=== PATIENT | female | born 1945 | race Caucasian/White ===

== ENCOUNTER 2021-02-27 07:30 | Emergency (ER) | payer OTHER ==
--- OUTSIDE RECORDS SUMMARY | 2021-02-27 07:33 | XMS REPORT | Continuity of Care Document ---
:1945 Author Organization [facility] t Address [address] [place] [address] Care Team Providers Name Role Phone Unavailable Unavailable Unavailable Problems This patient has no known problems. Allergies, Adverse Reactions, Alerts Allergy Allergy Status Severity Reaction(s) Onset Inactive Treating Comm ents Source Name Type Date Date Clinician Loratadi Adverse Active Info Not [facility] Medications Ordered Filled Start Stop Current Ordering Indication Dosage Frequency Signature Comments Components Source Medication Medication Date Date Medication? Clinician (SIG) Name Name Carvedilol Carvedilol Yes Na Anguiano [address] [facility] Aspirin 81 Aspirin 81 Yes Na Anguiano [address] [facility] Synthroid Synthroid Yes Na Anguiano [address] [facility] Probiotic-P Probiotic-P Yes Na Anguiano not [facility] rebiotic rebiotic defined [facility] Fish Oil Fish Oil Yes Na Anguiano [address] [facility] Triple Triple [facility] Strength Strength [facility] PreserVisio PreserVisio Yes Na Anguiano as [facility] n AREDS 2 n AREDS 2 directed [facility] CoQ10 CoQ10 Yes Na Anguiano 1 capsule [facility] a [facility] Fish Oil Fish Oil Yes Na Anguiano [address] [facility] Turmeric Turmeric Yes Na Anguiano as [facility] Curcumin Curcumin directed [facility] Synthroid Synthroid Yes Na Anguiano [address] [facility] Levothyroxi Levothyroxi Yes Na Anguiano TAKE [address] [facility] ne Sodium ne Sodium TABLET BY [facility] MOUTH ONCE [facility] DAILY IN l THE Outpati MORNING ON ent AN EMPTY Clinics STOMACH Immunizations Ordered Filled Immunization Date Status Comments Sour e Immunization Name Name Hanny Gamino 2019-03-[address] [facility] Procedures This patient has no known procedures. Encounters Start End Encounter Admission Attending Care Care Encounter Source Date/Time Date/Time Type Type Clinicians Facility Department ID 2020-09-06 2020-09-06 [facility] [id number] [facility] 2020-06-28 2020-06-28 [facility] [id number] [facility] 2020-05-01 2020-05-01 [facility] [id number] [facility] 2019-12-26 2019-12-26 [facility] [id number] [facility] 13[facility]00 [facility] 2019-06-27 2019-06-27 [facility] [id number] [facility] 13[facility] 13[facility]00[facility]00 [facility] Out[facility] 2019-03-31 2019-03-31 [facility] [id number] [facility] 05[facility]20[facility]00 05:20[facility]00 [facility] Medicine Outpat[facility] ent Clinics 2019-03-29 2019-03-29 [facility] [id number] [facility] 11[facility]00[facility]00 11[facility]00[facility]00 [facility] Medicine Outpat[facility] ent Clinics 2019-03-28 2019-03-28 [facility] [id number] 13[facility]00:00 13:00:00 t [employer] [employer] [facility] [employer] [facility] Medicine Outpati ent Clinics 2018-12-20 2018-12-20 [facility] [id number] [facility] 13:00:00 13:00:00 t [employer] [facility] Medicine Outpati ent Clinics 2018-09-20 2018-09-20 [facility] [id number] [facility] 09:30:00 09:30:00 t [employer] [facility] Medicine Outpati ent Clinics 2018-06-20 2018-06-20 [facility] [id number] [facility] 14[facility]30:00 14:30:00 t [employer] [facility] Medicine Outpati ent Clinics 2018-03-17 2018-03-17 [facility] [id number] [facility] 14:00:00 14:00:00 t [employer] [facility] Medicine Outpati ent Clinics 2017-12-14 2017-12-14 [facility] [id number] 14:15:00 14:15:00 t [employer] [facility] Medicine Outpati ent Clinics Results This patient has no known results.
--- NOTE | 2021-02-27 07:53 | EDPHYS ---
Physician Documentation [facility] Name: Daphne Samuels Age: 76 yrs Sex: Female : 1945 Arrival Date: 02/27/2021 Time: 07:32 Bed Waiting Private MD: Kary Anguiano ED Physician Jeremy Perry HPI: 02/27 09:03 This 76 yrs old Female presents to ER via Ambulatory with complaints of Rash. kb 09:03 The patient's rash thought to be caused by an unknown cause. The rash is located on the kb body diffusely. The rash can be described as urticarial. Onset: The symptoms/episode began/occurred yesterday. Associated signs and symptoms: Pertinent positives: itching. Severity of symptoms: At their worst the symptoms were moderate in the emergency department the symptoms are unchanged. Treatment given at home: Benadryl. The patient has not experienced similar symptoms in the past. The patient has not recently seen a physician. Historical: - Allergies: 07:43 No Known Allergies; jl7 - Home Meds: 07:43 carvedilol 3.125 mg Oral tab 1 tab [Active]; levothyroxine 25 mcg cap 1 cap once daily jl7 [Active]; - PMHx: 07:43 Hypertensive disorder; Hypothyroidism; Osteoporosis; jl7 - PSHx: 07:43 section; jl7 - Immunization history:: Client reports receiving the 2nd dose of the Covid vaccine, Date received: August 2020 [facility]. - Social history:: Smoking status: Patient denies any tobacco usage or history of. ROS: 09:03 Constitutional: Negative for fever, chills, and weight loss. kb 09:03 Skin: Positive for rash, diffusely. 09:03 All other systems are negative. Exam: 09:03 Constitutional: This is a well developed, well nourished patient who is awake, alert, kb and in no acute distress. Head/Face: Normocephalic, atraumatic. ENT: Moist Mucous membranes Respiratory: Respirations even and unlabored. No increased work of breathing, no retractions or nasal flaring. MS/ Extremity: Pulses equal, no cyanosis. Neurovascular intact. Full, normal range of motion. Neuro: Awake and alert, GCS 15, oriented to person, place, time, and situation. Moves all extremities. Normal gait. Psych: Awake, alert, with orientation to person, place and time. Behavior, mood, and affect are within normal limits. 09:03 Skin: consistent with urticaria, and is diffusely located. Vital Signs: 07:37 BP 174 / 101; Pulse 84; Resp 17; Temp 97.3; Pulse Ox 100% ; Weight 45.36 kg; Height 4 7 ft. 10 in. (147.32 cm); Pain 0/10; 07:58 BP 150 / 79; Pulse 80; Resp 15; Pulse Ox 100% ; jl7 07:37 Body Mass Index 20.90 (45.36 kg, 147.32 cm) [facility] MDM: 07:45 Patient medically screened. 09:01 Data reviewed: vital signs, nurses notes. Data interpreted: Pulse oximetry: on room air kb is 100 %. Interpretation: normal. Counseling: I had a detailed discussion with the patient and/or guardian regarding: the historical points, exam findings, and any diagnostic results supporting the discharge/admit diagnosis, the need for outpatient follow up, a family practitioner, to return to the emergency department if symptoms worsen or persist or if there are any questions or concerns that arise at home. Administered Medications: 07:57 Drug: Pepcid (famotidine) 20 mg Route: PO; [facility] 07:57 Follow up: Response: Medication administered at discharge. [facility] 07:57 Drug: predniSONE 40 mg Route: PO; 7 07:57 Follow up: Response: Medication administered at discharge. 7 Disposition Summary: 02/27/21 07:52 Discharge Ordered Location: Home kb Condition: Stable kb Diagnosis - Urticaria, unspecified kb Followup: kb - With: Emergency Department - When: As needed - Reason: Worsening of condition Followup: kb - With: Private Physician - When: 2 - 3 days - Reason: Recheck today's complaints, Continuance of care, Re-evaluation by your physician Discharge Instructions: - Discharge Summary Sheet kb - Hives, [id number] kb Forms: - Medication Reconciliation Form kb - Thank You Letter kb - Antibiotic Education kb - Prescription Opioid Use kb Prescriptions: - Pepcid 20 mg Oral Tablet - take 1 tablet by ORAL route every 12 hours for 5 days; 10 tablet; Refills: 0, kb Product Selection Permitted - Prednisone 20 mg Oral Tablet - take 2 tablets by ORAL route once daily for 5 days; 10 tablet; Refills: 0, kb Product Selection Permitted Signatures: Mary Ellen Colby, Arabella Salvador, RN RN jl7
--- NOTE | 2021-02-27 07:53 | ER ---
Nurse's Notes [facility] Name: Daphne Samuels Age: 76 yrs Sex: Female : 1945 Arrival Date: 02/27/2021 Time: 07:32 Bed Waiting Private MD: Kary Anguiano Diagnosis: Urticaria, unspecified Presentation: 02/27 07:37 Chief complaint: Patient states: Rash on right lateral abdomen started on Wednesday and jl7 was itchy, now not as itchy but woke this morning and it's all over my body. Reports taking hypertension medication 20 minutes prior to arrival. Coronavirus screen: Client denies travel out of the [place] in the last 14 days. At this time, the client does not indicate any symptoms associated with coronavirus-19. Ebola Screen: No symptoms or risks identified at this time. Initial Sepsis Screen: Does the patient meet any 2 criteria? No. Patient's initial sepsis screen is negative. Does the patient have a suspected source of infection? No. Patient's initial sepsis screen is negative. Risk Assessment: Do you want to hurt yourself or someone else? Patient reports no desire to harm self or others. Onset of symptoms was February 23, 2021. 07:37 Method Of Arrival: Ambulatory jl7 07:37 Acuity: AYSHA 4 jl7 Triage Assessment: 07:43 General: Appears in no apparent distress. uncomfortable, Behavior is calm, cooperative, jl7 appropriate for age. Pain: Denies pain. Derm: Rash noted that is red, raised, on bilaterla arms, bilateral legs, abdomen, face. Historical: - Allergies: 07:43 No Known Allergies; jl7 - Home Meds: 07:43 carvedilol 3.125 mg Oral tab 1 tab [Active]; levothyroxine 25 mcg cap 1 cap once daily jl7 [Active]; - PMHx: 07:43 Hypertensive disorder; Hypothyroidism; Osteoporosis; jl7 - PSHx: 07:43 section; jl7 - Immunization history:: Client reports receiving the 2nd dose of the Covid vaccine, Date received: August 2020 [facility]. - Social history:: Smoking status: Patient denies any tobacco usage or history of. Screenin:49 Abuse screen: Denies threats or abuse. Denies injuries from another. Nutritional jl7 screening: No deficits noted. Tuberculosis screening: No symptoms or risk factors identified. Fall Risk None identified. Assessment: 07:49 Reassessment: EDUARDA Hyde in triage assessing pt. jl7 Vital Signs: 07:37 BP 174 / 101; Pulse 84; Resp 17; Temp 97.3; Pulse Ox 100% ; Weight 45.36 kg; Height 4 jl7 ft. 10 in. (147.32 cm); Pain 0/10; 07:58 BP 150 / 79; Pulse 80; Resp 15; Pulse Ox 100% ; jl7 07:37 Body Mass Index 20.90 (45.36 kg, 147.32 cm) jl7 ED Course: 07:32 Patient arrived in ED. as 07:32 Kary Anguiano MD is Private Physician. as 07:40 Triage completed. jl7 07:43 Arm band placed on right wrist. jl7 07:45 Mary Ellen Colby [facility]C [facility] kb 07:45 Jeremy Perry MD is Attending Physician. kb 07:49 Patient has correct armband on for positive identification. jl7 07:49 No provider procedures requiring assistance completed. Patient did not have IV access jl7 during this emergency room visit. Administered Medications: 07:57 Drug: Pepcid (famotidine) 20 mg Route: PO; jl7 07:57 Follow up: Response: Medication administered at discharge. jl7 07:57 Drug: predniSONE 40 mg Route: PO; jl7 07:57 Follow up: Response: Medication administered at discharge. jl7 Outcome: 07:52 Discharge ordered by . kb 07:58 Discharged to home ambulatory. jl7 07:58 Condition: stable 07:58 Discharge instructions given to patient, family, Instructed on discharge instructions, follow up and referral plans. medication usage, Demonstrated understanding of instructions, follow-up care, medications, Prescriptions given X 2. 08:01 Patient left the ED. jl7 Signatures: Mary Ellen Colby FNP-C FNP-Leonor Billy Jahala, RN RN jl7
[2021-02-27] MEDS ORDERED: predniSONE 20 MG TAB ONE (08:17)
[2021-02-27] MEDS ORDERED: FAMOTIDINE 20 MG TAB ONE (08:17)
== END 2021-02-27 08:01 | disposition home or self-care (01) ==
LOC: ER 07:30
DX: L50.9 Urticaria, unspecified (principal); I10 Essential (primary) hypertension; E03.9 Hypothyroidism, unspecified
CPT/HCPCS: 99283; J7512

== ENCOUNTER 2021-03-01 08:08 | Emergency (ER) | payer OTHER ==
--- OUTSIDE RECORDS SUMMARY | 2021-03-01 08:11 | XMS REPORT | Continuity of Care Document ---
:1945 Author Organization [facility] t Address [address] [place] [address] Care Team Providers Name Role Phone Unavailable [...] 2019-03-[address] [facility] Outpatient Clin[facility] Procedures This patient has no known procedures. Encounters Start End Encounter Admission Attending Care Care Encounter Source Date/Time Date/Time Type Type Clinicians Facility Department ID 2020-09-06 2020-09-06 Out[facility] [id number] [facility] 2020-06-28 2020-06-28 [facility] [id number] [facility] 2020-05-01 2020-05-01 [facility] [id number] [facility] 2019-12-26 2019-12-26 [facility] [id number] [facility] 13[facility] 13:00:00 [facility] Medicine Medicine Outpati ent Clinics 2019-06-27 2019-06-27 [facility] [id number] [facility] 13:00:00 13:00:00 [facility] Medicine Medicine Outpati ent Clinics 2019-03-31 2019-03-31 [facility] [id number] [facility] 05:20:00 05:20:00 [facility] Medicine l Medicine Outpati ent Clinics 2019-03-29 2019-03-29 [facility] [id number] 11:00:00 11:00:00 [facility] Medicine Outpati ent Clinics 2019-03-28 2019-03-28 [facility] [id number] [facility] 13:00:00 13:00:00 t [employer] [facility] [employer] [facility] Medicine Outpati ent Clinics 2018-12-20 2018-12-20 [facility] [id number] [facility] 13:00:00 13:00:00 t [employer] [facility] [employer] [facility] Medicine Outpati ent Clinics 2018-09-20 2018-09-20 [facility] [id number] 09:30:00 09:30:00 t [employer] [facility] Medicine Outpati ent Clinics 2018-06-20 2018-06-20 [facility] [id number] [facility] 14:30:00 14:30:00 t [employer] [facility] Medicine Outpati ent Clinics 2018-03-17 2018-03-17 [facility] [id number] [facility] 14:00:00 14:00:00 t [employer] [facility] Medicine Outpati ent Clinics 2017-12-14 2017-12-14 [facility] [id number] [facility] 14:15:00 14:15:00 t [employer] [facility] Medicine Outpati ent Clinics Results This patient has no known results.
--- NOTE | 2021-03-01 08:51 | ER ---
Nurse's Notes [facility] Name: Daphne Samuels Age: 76 yrs Sex: Female : 1945 Arrival Date: 03/01/2021 Time: 08:12 Bed DIS8 Private MD: Kary Anguiano Diagnosis: Allergic urticaria Presentation: 03/01 08:21 Chief complaint: Patient states: Pt was seen in ER for Hives that began last ss Wednesday and was given pepcid and prednisone. Pt attempted to follow up with Dr. Anguiano, but was told she did not need to be seen. Pt reports that the hives are not improving at all. Coronavirus screen: Client denies travel out of the [place] in the last 14 days. Ebola Screen: Patient denies exposure to infectious person. Patient denies travel to an Ebola-affected area in the 21 days before illness onset. Onset: The symptoms/episode began/occurred 6 day(s) ago. Anaphylaxis evaluation, no signs or symptoms of anaphylaxis were noted. Initial Sepsis Screen: Does the patient meet any 2 criteria? No. Patient's initial sepsis screen is negative. Does the patient have a suspected source of infection? No. Patient's initial sepsis screen is negative. Risk Assessment: Do you want to hurt yourself or someone else? Patient reports no desire to harm self or others. Onset of symptoms was February 23, 2021. 08:21 Method Of Arrival: Ambulatory ss 08:21 Acuity: AYSHA 4 ss Historical: - Allergies: 08:23 No Known Allergies; ss - PMHx: 08:23 Hypertensive disorder; Hypothyroidism; Osteoporosis; ss - PSHx: 08:23 section; ss - Immunization history:: Adult Immunizations up to date. - Social history:: Smoking status: Patient denies any tobacco usage or history of. Screenin:24 Abuse screen: Denies threats or abuse. Denies injuries from another. Nutritional ss screening: No deficits noted. Tuberculosis screening: Never had TB. Fall Risk None identified. Assessment: 08:24 General: Appears in no apparent distress. Behavior is calm, cooperative. Pain: Denies ss pain. Neuro: Level of Consciousness is awake, alert, obeys commands, Oriented to person, place, time, situation. Cardiovascular: Capillary refill < 3 seconds is brisk in bilateral fingers. Respiratory: Airway is patent Respiratory effort is even, unlabored, Respiratory pattern is regular, symmetrical. Respiratory: Breath sounds are clear bilaterally. Denies cough, shortness of breath pain with respiration, pain with cough, pain with movement. Derm: Rash noted that is. Musculoskeletal: Circulation, motion, and sensation intact. Range of motion: intact in all extremities, Swelling absent. Vital Signs: 08:21 BP 167 / 93; Pulse 84; Resp 16; Temp 98.6(TE); Pulse Ox 100% on R/A; Weight 45.36 kg; ss Height 4 ft. 10 in. (147.32 cm); Pain 0/10; 08:21 Body Mass Index 20.90 (45.36 kg, 147.32 cm) ss ED Course: 08:12 Patient arrived in ED. mr 08:12 Kary Anguiano MD is Private Physician. mr 08:23 Triage completed. ss 08:23 Arm band placed on right wrist. ss 08:24 Patient has correct armband on for positive identification. Bed in low position. Call ss light in reach. 08:26 Jimi Alonzo MD is Attending Physician. tw4 08:49 Kary Anguiano MD is Referral Physician. tw4 08:50 Gracie Pavon MD is Referral Physician. tw4 08:50 Cachorro Vallejo MD is Referral Physician. tw4 08:52 Sailaja Ribeiro, BIMAL is Primary Nurse. ss 09:58 No provider procedures requiring assistance completed. Patient did not have IV access ss during this emergency room visit. Administered Medications: 09:08 Drug: SOLU-Medrol (methylPREDNISolone sodium succinate) 125 mg Route: IM; Site: right ss gluteus; 09:15 Follow up: Response: No adverse reaction ss Outcome: 08:50 Discharge ordered by . tw4 09:59 Discharged to home ambulatory, with family. ss 09:59 Condition: good 09:59 Discharge instructions given to patient, family, Demonstrated understanding of instructions, follow-up care, medications, Prescriptions given X 1. 09:59 Patient left the ED. Signatures: Jamari Malini mr Sailaja Ribeiro, RN RN Jimi Alonzo MD MD tw4
--- NOTE | 2021-03-01 08:51 | EDPHYS ---
Physician Documentation [facility] Name: Daphne Samuels Age: 76 yrs Sex: Female : 1945 Arrival Date: 03/01/2021 Time: 08:12 Bed DIS8 Private MD: Kary Anguiano ED Physician Jimi Alonzo HPI: 03/01 09:03 This 76 yrs old Female presents to ER via Ambulatory with complaints of Hives.tw4 09:03 The patient's rash thought to be caused by an unknown cause. The rash is located on the tw4 body diffusely. The rash can be described as urticarial. Onset: The symptoms/episode began/occurred today. Associated signs and symptoms: Pertinent positives: None. Severity of symptoms: At their worst the symptoms were moderate in the emergency department the symptoms are unchanged. The patient has not experienced similar symptoms in the past. Historical: - Allergies: 08:23 No Known Allergies; ss - PMHx: 08:23 Hypertensive disorder; Hypothyroidism; Osteoporosis; ss - PSHx: 08:23 section; ss - Immunization history:: Adult Immunizations up to date. - Social history:: Smoking status: Patient denies any tobacco usage or history of. ROS: 09:03 Constitutional: Negative for fever, chills, and weight loss, Eyes: Negative for injury, tw4 pain, redness, and discharge, Cardiovascular: Negative for chest pain, palpitations, and edema, Respiratory: Negative for shortness of breath, cough, wheezing, and pleuritic chest pain, Abdomen/GI: Negative for abdominal pain, nausea, vomiting, diarrhea, and constipation, Back: Negative for injury and pain, Neuro: Negative for headache, weakness, numbness, tingling, and seizure. 09:03 Skin: Positive for rash. Exam: 09:03 Constitutional: This is a well developed, well nourished patient who is awake, alert, tw4 and in no acute distress. Head/Face: Normocephalic, atraumatic. Chest/axilla: Normal chest wall appearance and motion. Nontender with no deformity. No lesions are appreciated. Cardiovascular: Regular rate and rhythm with a normal S1 and S2. No gallops, murmurs, or rubs. Normal PMI, no JVD. No pulse deficits. Respiratory: Lungs have equal breath sounds bilaterally, clear to auscultation and percussion. No rales, rhonchi or wheezes noted. No increased work of breathing, no retractions or nasal flaring. Abdomen/GI: Soft, non-tender, with normal bowel sounds. No distension or tympany. No guarding or rebound. No evidence of tenderness throughout. MS/ Extremity: Pulses equal, no cyanosis. Neurovascular intact. Full, normal range of motion. Neuro: Awake and alert, GCS 15, oriented to person, place, time, and situation. Cranial nerves II-XII grossly intact. Motor strength 5/5 in all extremities. Sensory grossly intact. Cerebellar exam normal. Normal gait. 09:03 Skin: Vital Signs: 08:21 BP 167 / 93; Pulse 84; Resp 16; Temp 98.6(TE); Pulse Ox 100% on R/A; Weight 45.36 kg; ss Height 4 ft. 10 in. (147.32 cm); Pain 0/10; 08:21 Body Mass Index 20.90 (45.36 kg, 147.32 cm) ss MDM: 08:26 Patient medically screened. tw4 09:04 Data reviewed: vital signs, nurses notes. Data interpreted: ekg monitor tech: Pulse tw4 oximetry: Interpretation: normal. Counseling: I had a detailed discussion with the patient and/or guardian regarding: the historical points, exam findings, and any diagnostic results supporting the discharge/admit diagnosis. Special discussion: Based on the history and exam findings, there is no indication for further emergent testing or inpatient evaluation. I discussed with the patient/guardian the need to see the tester semiconductor packages for further evaluation of the symptoms. Administered Medications: 09:08 Drug: SOLU-Medrol (methylPREDNISolone sodium succinate) 125 mg Route: IM; Site: right ss gluteus; 09:15 Follow up: Response: No adverse reaction ss Disposition Summary: 03/01/21 08:50 Discharge Ordered Location: Home tw4 Problem: new tw4 Symptoms: have improved tw4 Condition: Stable tw4 Diagnosis - Allergic urticaria tw4 Followup: tw4 - With: Kary Anguiano MD - When: Upon discharge from the Emergency Department - Reason: If symptoms return, Recheck today's complaints, Continuance of care, Re-evaluation by your physician Followup: tw4 - With: Gracie Pavon MD - When: Upon discharge from the Emergency Department - Reason: If symptoms return, Recheck today's complaints, Re-evaluation by your physician Followup: tw4 - With: Cachorro Vallejo MD - When: Upon discharge from the Emergency Department - Reason: Recheck today's complaints, Continuance of care, Re-evaluation by your physician Discharge Instructions: - Discharge Summary Sheet tw4 - Allergies, Adult tw4 - Hives tw4 Forms: - Medication Reconciliation Form tw4 - Thank You Letter tw4 - Antibiotic Education tw4 - Prescription Opioid Use tw4 Prescriptions: - EpiPen - take 1 application by SUBCUTANEOUS route once as needed for anaphylaxis; 1 tw4 Device; Refills: 0, Product Selection Permitted - hydroxyzine HCl 25 mg Oral tablet - take 1 tablet by ORAL route 3 times per day; 20 tablet; Refills: 0, Product tw4 Selection Permitted Signatures: Sailaja Ribeiro RN RN Jimi Mancia MD MD
[2021-03-01] MEDS ORDERED: METHYLPREDNISOLONE 125 MG INJ ONE (09:16)
[2021-03-01 10:02] VITALS: BP 167/93; TEMP 98.6; O2SAT 100
== END 2021-03-01 09:59 | disposition home or self-care (01) ==
LOC: ER 08:08
DX: L50.0 Allergic urticaria (principal); I10 Essential (primary) hypertension
CPT/HCPCS: 96372; 99283; J2930

== ENCOUNTER 2023-01-25 01:34 | Emergency (ER) | payer OTHER ==
--- OUTSIDE RECORDS SUMMARY | 2023-01-25 01:38 | XMS REPORT | Continuity of Care Document ---
:1945 Author Organization [facility] t Address [address] [facility] [place] [address] Care Team Providers Name Role Phone Mateo Zulay Attending Clinician Unavailable Kary Anguiano Attending Clinician Unavailable Payers Payer Name Policy Type Policy Number Effective Date Expiration Date S gavin [facility] TRS Care MB [id number] 2020 [facility] Medicare 00:00:00 [facility] TRS Care MB [id number] 2020 [facility] Medicare 00:00:00 - [facility] Problems Condition Condition Condition Status Onset Resolution Last Treating Co mments Source Name Details Category Date Date Treatment Clinician Date [id number] Hematoma Problem Active Comm on [facility] [id number] Screening Problem Active Com mon for Spirit osteoporos - [facility] is [facility] Hypertensi Hypertensi Problem Active C ommon on on Spirit [facility] Hyperlipop Acquired Problem Active Com mon roteinemia hyperlipop Sp ekta roteinemia - [facility] 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 generalize - [facility] d d [facility] osteoporos osteoporos [facility] Acquired Acquired Problem Active Commo n hypothyroi hypothyroi Sp ekta dism dism - [facility] Hyperlipid Hyperlipid Problem Active C ommon emia emia [facility] [id number] Elevated Problem Active Comm on serum Spirit globulin - [facility] level [facility] [id number] Deformity Problem Active Com mon of left Spirit wrist - [facility] joint [facility] Allergic Allergic Problem Active Commo n rhinitis rhinitis, Spiri t unspecifie - [facility] [id number] Needs flu Problem Active Com mon shot Spirit [facility] [id number] Arthritis Problem Active Com mon of left Spirit hand - [facility] [id number] Renal Problem Active Common insufficie Spirit ncy [facility] Vitamin Encounter Problem Active Commo n deficiency for Spirit vitamin - [facility]I deficiency [facility] Osteopenia Osteopenia Problem Active C ommon of lumbar of lumbar Spir it spine spine [facility] [id number] Primary Problem Active Comm on osteoarthr Spirit itis, left - [facility] hand [facility] [id number] Primary Problem Active Comm on osteoarthr Spirit itis, - [facility] right hand [facility] Allergies, Adverse Reactions, Alerts Allergy Allergy Status Severity Reaction(s) Onset Inactive Treating Comm ents Source Name Type Date Date Clinician larry juarez Active Unknown Commo n ne / ne / Spirit [facility] Social History Social Habit Start Date Stop Date Quantity Comments Source History of Tobacco Use Co mmon [facility] Sex Assigned At Com mon [facility] Smoking Status Start Date Stop Date Source Former Smoker 2022-01-21 00:00:00 2022-01-21 00:00:00 Common S pirit [facility] Medications Ordered Filled Start Stop Current Ordering Indication Dosage Frequency Signature Comments Components Source Medication Medication Date Date Medication? Clinician (SIG) Name Name Vitamin C Vitamin C No Vitamin C Probiotic-P Probiotic-P No Probiotic- rebiotic rebiotic Prebiotic 1-250 1-250 1-250 BILLION-MG BILLION-MG BILLION-MG Magnesium Magnesium No Magnesium Farwell Farwell No Farwell Calcium Calcium No Calcium Turmeric Turmeric No Turmeric Curcumin Curcumin Curcumin 500 MG 500 MG 500 MG Vitamin D Vitamin D No Vitamin D Strontium Strontium No Strontium Gluconate-B Gluconate-B Gluconate- 6-B12-FA 6-B12-FA B6-B12-FA Vitamin K Vitamin K No 1{table QD Vitamin K 100 MCG 100 MCG t} 100 MCG Fish Oil Fish Oil No 1{capsu QD Fish Oil Triple Triple le} Triple Strength Strength Strength 1400 MG 1400 MG 1400 MG PreserVisio PreserVisio No PreserVisi n AREDS 2 - n AREDS 2 - on AREDS 2 - Carvedilol Carvedilol No 1{table BID Carvedilol 3.125 MG 3.125 MG t} 3.125 MG Vanadium Vanadium No Vanadium CoQ10 200 CoQ10 200 No 1{capsu BID CoQ10 200 MG MG le_with MG _a_meal } Silica Silica No Silica Synthroid Synthroid No QD Synthroid 25 MCG 25 MCG 25 MCG Vitamin C Vitamin C No Vitamin C Probiotic-P Probiotic-P No Probiotic- rebiotic rebiotic Prebiotic 1-250 1-250 1-250 BILLION-MG BILLION-MG BILLION-MG Magnesium Magnesium No Magnesium Carvedilol Carvedilol No 1{table BID Carvedilol 3.125 MG 3.125 MG t} 3.125 MG Magnesium Magnesium No Magnesium Probiotic-P Probiotic-P No Probiotic- rebiotic rebiotic Prebiotic 1-250 1-250 1-250 BILLION-MG BILLION-MG BILLION-MG Farwell Farwell No Farwell Flonase 50 Flonase 50 No 2{spray QD Flonase 50 MCG/ACT MCG/ACT _in_eac MCG/ACT h_nostr il} Vitamin C Vitamin C No Vitamin C Vitamin D Vitamin D No Vitamin D Strontium Strontium No Strontium Gluconate-B Gluconate-B Gluconate- 6-B12-FA 6-B12-FA B6-B12-FA Fish Oil Fish Oil No 1{capsu QD Fish Oil Triple Triple le} Triple Strength Strength Strength 1400 MG 1400 MG 1400 MG CoQ10 200 CoQ10 200 No 1{capsu BID CoQ10 200 MG MG le_with MG _a_meal } Silica Silica No Silica Calcium Calcium No Calcium Vanadium Vanadium No Vanadium Vitamin K Vitamin K No 1{table QD Vitamin K 100 MCG 100 MCG t} 100 MCG PreserVisio PreserVisio No PreserVisi n AREDS 2 - n AREDS 2 - on AREDS 2 - Turmeric Turmeric No Turmeric Curcumin Curcumin Curcumin 500 MG 500 MG 500 MG Synthroid Synthroid No QD Synthroid 25 MCG 25 MCG 25 MCG Synthroid Synthroid No QD Synthroid 25 MCG 25 MCG 25 MCG Synthroid Synthroid No 1{table Synthroid 25 MCG 25 MCG t} 25 MCG Fish Oil Fish Oil No 1{capsu QD Fish Oil Triple Triple le} Triple Strength Strength Strength 1400 MG 1400 MG 1400 MG Carvedilol Carvedilol No 1{table BID Carvedilol 3.125 MG 3.125 MG t} 3.125 MG CoQ10 200 CoQ10 200 No 1{capsu BID CoQ10 200 MG MG le_with MG _a_meal } Probiotic-P Probiotic-P No Probiotic- rebiotic rebiotic Prebiotic 1-250 1-250 1-250 BILLION-MG BILLION-MG BILLION-MG Aspirin 81 Aspirin 81 No 1{table QD Aspirin 81 81 MG 81 MG t} 81 MG Levothyroxi Levothyroxi No Levothyrox ne Sodium ne Sodium ine Sodium 25 MCG 25 MCG 25 MCG Fish Oil Fish Oil No 1{capsu QD Fish Oil 1000 MG 1000 MG le} 1000 MG PreserVisio PreserVisio No PreserVisi n AREDS 2 - n AREDS 2 - on AREDS 2 - Turmeric Turmeric No Turmeric Curcumin Curcumin Curcumin 500 MG 500 MG 500 MG Farwell Farwell No Farwell Probiotic-P Probiotic-P No Probiotic- rebiotic rebiotic Prebiotic 1-250 1-250 1-250 BILLION-MG BILLION-MG BILLION-MG Strontium Strontium No Strontium Gluconate-B Gluconate-B Gluconate- 6-B12-FA 6-B12-FA B6-B12-FA Vitamin D Vitamin D No Vitamin D Calcium Calcium No Calcium Vitamin K Vitamin K No 1{table QD Vitamin K 100 MCG 100 MCG t} 100 MCG Turmeric Turmeric No Turmeric Curcumin Curcumin Curcumin 500 MG 500 MG 500 MG PreserVisio PreserVisio No PreserVisi n AREDS 2 - n AREDS 2 - on AREDS 2 - Synthroid Synthroid No QD Synthroid 25 MCG 25 MCG 25 MCG Fish Oil Fish Oil No 1{capsu QD Fish Oil Triple Triple le} Triple Strength Strength Strength 1400 MG 1400 MG 1400 MG CoQ10 200 CoQ10 200 No 1{capsu BID CoQ10 200 MG MG le_with MG _a_meal } Carvedilol Carvedilol No 1{table BID Carvedilol 3.125 MG 3.125 MG t} 3.125 MG Vanadium Vanadium No Vanadium Magnesium Magnesium No Magnesium Vitamin C Vitamin C No Vitamin C Silica Silica No Silica Farwell Farwell No Farwell Calcium Calcium No Calcium Turmeric Turmeric No Turmeric Curcumin Curcumin Curcumin 500 MG 500 MG 500 MG Vitamin D Vitamin D No Vitamin D Strontium Strontium No Strontium Gluconate-B Gluconate-B Gluconate- 6-B12-FA 6-B12-FA B6-B12-FA Vitamin K Vitamin K No 1{table QD Vitamin K 100 MCG 100 MCG t} 100 MCG Fish Oil Fish Oil No 1{capsu QD Fish Oil Triple Triple le} Triple Strength Strength Strength 1400 MG 1400 MG 1400 MG PreserVisio PreserVisio No PreserVisi n AREDS 2 - n AREDS 2 - on AREDS 2 - Carvedilol Carvedilol No 1{table BID Carvedilol 3.125 MG 3.125 MG t} 3.125 MG Carvedilol Carvedilol Yes Na Anguiano 1 tablet [facility] Aspirin 81 Aspirin 81 Yes Na Anguiano 1 tablet [facility] Synthroid Synthroid Yes Na Anguiano 1 tablet [facility] Probiotic-P Probiotic-P Yes Na Anguiano not Common rebiotic rebiotic defined Spir it [facility] Fish Oil Fish Oil Yes Na Anguiano 1 capsule Common Triple Triple Spirit Strength Strength [facility] PreserVisio PreserVisio Yes Na Anguiano as Common n AREDS 2 n AREDS 2 directed S pirit [facility] CoQ10 CoQ10 Yes Na Anguiano 1 capsule Commo n with a Spirit meal [facility] Fish Oil Fish Oil Yes Na Anguiano 1 capsule [facility] Turmeric Turmeric Yes Na Anguiano as Comm on Curcumin Curcumin directed Spi rit [facility] Synthroid Synthroid Yes Na Anguiano 1 tablet [facility] Levothyroxi Levothyroxi Yes Na Angiuano TAKE 1 Common ne Sodium ne Sodium TABLET BY Spirit MOUTH ONCE - [facility] DAILY IN St MORNING ON Medical AN EMPTY Center STOMACH Vanadium Vanadium No Vanadium CoQ10 200 CoQ10 200 No 1{capsu BID CoQ10 200 MG MG le_with MG _a_meal } Silica Silica No Silica Synthroid Synthroid No QD Synthroid 25 MCG 25 MCG 25 MCG Vitamin C Vitamin C No Vitamin C Probiotic-P Probiotic-P No Probiotic- rebiotic rebiotic Prebiotic 1-250 1-250 1-250 BILLION-MG BILLION-MG BILLION-MG Magnesium Magnesium No Magnesium Farwell Farwell No Farwell Calcium Calcium No Calcium Turmeric Turmeric No Turmeric Curcumin Curcumin Curcumin 500 MG 500 MG 500 MG Vitamin D Vitamin D No Vitamin D Strontium Strontium No Strontium Gluconate-B Gluconate-B Gluconate- 6-B12-FA 6-B12-FA B6-B12-FA Vitamin K Vitamin K No 1{table QD Vitamin K 100 MCG 100 MCG t} 100 MCG Fish Oil Fish Oil No 1{capsu QD Fish Oil Triple Triple le} Triple Strength Strength Strength 1400 MG 1400 MG 1400 MG PreserVisio PreserVisio No PreserVisi n AREDS 2 - n AREDS 2 - on AREDS 2 - Carvedilol Carvedilol No 1{table BID Carvedilol 3.125 MG 3.125 MG t} 3.125 MG Vanadium Vanadium No Vanadium CoQ10 200 CoQ10 200 No 1{capsu BID CoQ10 200 MG MG le_with MG _a_meal } Silica Silica No Silica Synthroid Synthroid No QD Synthroid 25 MCG 25 MCG 25 MCG Immunizations Ordered Immunization Filled Immunization Date Status Commen ts Source Name Name FluAD FluAD 2021-04-03 [facility]pleted [facility] FluAD FluAD 2021-04-03 Completed [facility] 14:11[facility] FluAD FluAD 2021-04-03 Completed [facility] 14:11[facility] - [facility] FluAD FluAD 2021-04-03 Completed [facility] 14:11:00 - [facility] FluAD FluAD 2021-04-03 Completed [facility] 14:11:00 - [facility] FluAD FluAD 2021-04-03 Completed [facility] 14:11:00 - [facility] FluAD FluAD 2020-05-01 Completed [facility] 10:14:00 - [facility] FluAD FluAD 2020-05-01 Completed [facility] 10[facility]14:00 - [facility] FluAD FluAD 2020-05-01 Completed [facility] 10:14:00 - [facility] FluAD FluAD 2020-05-01 Completed [facility] 10:14:00 - [facility] FluAD FluAD 2020-05-01 Completed [facility] 10:14:00 - [facility] FluAD FluAD 2020-05-01 Completed [facility] 10:14:00 - [facility] FluAD FluAD 2019-03-29 Completed [facility] 12:37:00 - [facility] FluAD FluAD 2019-03-29 Completed [facility] 12:37:00 - [facility] FluAD FluAD 2019-03-29 Completed [facility] 12[facility]37:00 - [facility] FluAD FluAD 2019-03-29 Completed [facility] 12:37:00 - [facility] FluAD FluAD 2019-03-29 Completed [facility] 12:37:00 - [facility] FluAD FluAD 2019-03-29 Completed [facility] 12:37:00 - [facility] FluAD FluAD 2019-03-29 Completed [facility] 00:00:00 - [facility] Vital Signs Vital Name Observation Time Observation Value Comments Source height 2022-02-04 08:40:00 58 [in_i] [facility] weight 2022-02-04 08:40:00 105 [lb_av] [facility] bmi 2022-02-04 08:40:00 21.94 kg/m2 [facility] height 2021-10-15 09:00:00 58 [in_i] [facility] weight 2021-10-15 09:00:00 104 [lb_av] [facility] bmi 2021-10-15 09:00:00 21.73 kg/m2 [facility] height 2021-04-10 09:00:00 58 [in_i] [facility] weight 2021-04-10 09:00:00 104 [lb_av] [facility] temperature 2021-04-10 09:00:00 97.4 [degF] [facility] bmi 2021-04-10 09:00:00 21.73 kg/m2 [facility] oximetry 2021-04-10 09:00:00 97 % [facility] respiratory rate 2021-04-10 09:00:00 15 /min Comm on [facility] blood pressure 2021-04-10 09:00:00 128 mm[Hg] Common [facility] - systolic [facility] blood pressure 2021-04-10 09:00:00 70 mm[Hg] Common [facility] - diastolic [facility] Procedures This patient has no known procedures. Encounters Start End Encounter Admission Attending Care Care Encounter Source Date/Time Date/Time Type Type Clinicians Facility Department ID 2022-10-01 Outpatient Galindo, STLMLC STLMLC [id number] Common 10:01:00 Zulay [id number] [facility] 2022-09-09 Outpatient Galindo, STLMLC STLMLC [id number] Common 16:36:00 Zulay [id number] [facility] 2022-02-02 Outpatient Anguiano, Na STLMLC STLMLC [id number] Common 08:15:00 [facility] 2021-10-13 Outpatient Anguiano, Na STLMLC STLMLC [id number] Common 08:34:01 [id number] [facility] 2021-08-13 Outpatient Anguiano, Na STLMLC STLMLC [id number] Common 12:37:36 [id number] [facility] 2021-08-13 Outpatient Anguiano, Na STLMLC STLMLC [id number] Common 12:12:37 [id number] [facility] 2021-08-13 Outpatient Anguiano, Na STLMLC STLMLC [id number] Common 12:11:40 [id number] [facility] 2021-08-13 Outpatient Anguiano, Na STLMLC STLMLC [id number] Common 12:09:23 [id number] [facility] 2021-08-13 Outpatient Anguiano, Na STLMLC STLMLC [id number] 2 Common 11:25:00 [id number] [facility] 2021-08-13 Outpatient Anguiano, Na STLMLC STLMLC [id number] 2 Common 11:17:12 [id number] [facility] 2022-02-04 2022-02-04 OFFICE STLMLC STLMLC [id number] Co mmon 00:00:00 00:00:00 VISIT [facility] PT - CHI LEVEL [address] [place] [address] 2021-10-15 2021-10-15 (TEL) STLMLC STLMLC [id number] Co mmon 00:00:00 00:00:00 [facility] 2021-10-15 2021-10-15 OFFICE STLMLC STLMLC [id number] Co mmon 00:00:00 00:00:00 VISIT [facility] PT - [facility] [address] 2021-10-15 2021-10-15 (TEL) STLMLC STLMLC [id number] Co mmon 00:00:00 00:00:00 [facility] 2021-04-10 2021-04-10 OFFICE STLMLC STLMLC [id number] Co mmon 00:00:00 00:00:00 VISIT [facility] PT - [facility] [address] 2021-04-03 2021-04-03 (INJ) STLMLC STLMLC [id number] Co mmon 00:00:00 00:00:00 Injection Spir [facility] 2020-09-06 2020-09-06 Outpatient STLMLC STLMLC [id number] Common 00:00:00 00:00:00 [facility] 2020-06-28 2020-06-28 Outpatient STLMLC STLMLC [id number] Common 00:00:00 00:00:00 [facility] 2020-05-01 2020-05-01 Outpatient STLMLC STLMLC [id number] Common 00:00:00 00:00:00 [facility] 2019-12-26 2019-12-26 [facility] [id number] Common 13:00:00 13:00:[address] Sp[address] [facility] 2019-06-27 2019-06-27 [facility]patient [facility] [id number] Common 13:00:00 13:00:[address] Sp[address] [facility] 2019-03-31 2019-03-31 [facility] [id number] Common 05:20:00 05:20:[address] Sp[address] [facility] 2019-03-29 2019-03-29 [facility] [id number] Common 11:00:00 11:00:[address] Sp[address] [facility] 2019-03-28 2019-03-28 [facility] [id number] Common 13:00:00 13:00:[address] Sp[address] [facility] 2018-12-20 2018-12-20 [facility] [id number] Common 13:00:00 13:00:[address] [facility] 2018-09-20 2018-09-20 [facility] [id number] Common 09:30:00 09:30:[address] Sp[address] [facility] 2018-06-20 2018-06-20 [facility] [id number] Common 14:30:00 14:30:[address] [facility] 2018-03-17 2018-03-17 [facility] [id number] Common 14:00:00 14:00:[address] Sp[address] [facility] 2017-12-14 2017-12-14 [facility] [id number] Common 14:15:00 14:15:[address] Sp[address] [facility] Results This patient has no known results.
[2023-01-25 02:41] LABS: Absolute Lymphocytes (CBC) 1.3 K/uL (0.7-4.9); Hematocrit 40.2 % (36.0-45.0); Lymphocytes % 19.4 % (15.3-44.8); MCV 90.5 fL (80-100); MPV 10.7 fL (7.6-11.3); RBC Red Blood Cell Count 4.44 M/uL (3.86-4.86)
[2023-01-25 02:53] LABS: Albumin 3.7 g/dL (3.4-5.0); Bilirubin Direct 0.1 mg/dL (0-0.2); Bilirubin Indirect, Calculated 0.5 mg/dL (0.2-0.8); Bilirubin Total 0.6 mg/dL (0.2-1.0); Magnesium 2.4 mg/dL (1.6-2.4); Potassium 3.9 mEq/L (3.5-5.1); Protein, Total 7.9 g/dL (6.4-8.2)
--- NOTE | 2023-01-25 03:57 | EDPHYS ---
Physician Documentation [facility] Name: Daphne Samuels Age: 77 yrs Sex: Female : 1945 Arrival Date: 01/25/2023 Time: 01:34 Bed 14 Private MD: ED Physician Abimael Aguillon HPI: 01/25 07:59 This 77 yrs old Female presents to ER via Ambulatory with complaints of High Blood kdr Pressure. 07:59 Patient presents to the ED complaining of high blood pressure. Patient had a blood kdr pressure of 207/117 at home. Patient denies headache or chest pain but does feel hot. Patient had contacted Dr. Mesa and he had instructed her to double her Coreg dose during the day. Patient had done that but her pressure had not improved. Therefore she presented to the ED. Patient does not appear toxic or to be having any ill effects from her elevated blood pressure. Her pressure had improved by the time she arrived in the ED.. Onset: The symptoms/episode began/occurred yesterday. Severity of symptoms: At their worst the symptoms were mild in the emergency department the symptoms are unchanged. The patient has not experienced similar symptoms in the past. The patient has not recently seen a physician. Historical: - Allergies: 01:54 No Known Allergies; vc1 - PMHx: 01:54 Hypertensive disorder; Hypothyroidism; Macular degenerative; vc1 - PSHx: 01:54 section; Cataract; vc1 - Immunization history:: Adult Immunizations up to date. - Social history:: Smoking status: Patient denies any tobacco usage or history of. ROS: 07:59 Constitutional: Negative for fever, chills, and weight loss, Eyes: Negative for injury, kdr pain, redness, and discharge, ENT: Negative for injury, pain, and discharge, Neck: Negative for injury, pain, and swelling, Cardiovascular: Negative for chest pain, palpitations, and edema, Respiratory: Negative for shortness of breath, cough, wheezing, and pleuritic chest pain, Abdomen/GI: Negative for abdominal pain, nausea, vomiting, diarrhea, and constipation, Back: Negative for injury and pain, : Negative for injury, bleeding, discharge, and swelling, MS/Extremity: Negative for injury and deformity, Skin: Negative for injury, rash, and discoloration, Neuro: Negative for headache, weakness, numbness, tingling, and seizure activity. Psych: Negative for depression, anxiety, suicide ideation, homicidal ideation, and hallucinations, Allergy/Immunology: Negative for hives, rash, and allergies, Endocrine: Negative for neck swelling, polydipsia, polyuria, polyphagia, and marked weight changes, Hematologic/Lymphatic: Negative for swollen nodes, abnormal bleeding, and unusual bruising. Exam: 07:59 Constitutional: This is a well developed, well nourished patient who is awake, alert, kdr and in no acute distress. Head/Face: Normocephalic, atraumatic. Eyes: Pupils equal round and reactive to light, extra-ocular motions intact. Lids and lashes normal. Conjunctiva and sclera are non-icteric and not injected. Cornea within normal limits. Periorbital areas with no swelling, redness, or edema. Neck: Trachea midline, no thyromegaly or masses palpated, and no cervical lymphadenopathy. Supple, full range of motion without nuchal rigidity, or vertebral point tenderness. No Meningismus. Chest/axilla: Normal chest wall appearance and motion. Nontender with no deformity. No lesions are appreciated. Cardiovascular: Regular rate and rhythm with a normal S1 and S2. No gallops, murmurs, or rubs. Normal PMI, no JVD. No pulse deficits. Respiratory: Lungs have equal breath sounds bilaterally, clear to auscultation and percussion. No rales, rhonchi or wheezes noted. No increased work of breathing, no retractions or nasal flaring. Abdomen/GI: Soft, non-tender, with normal bowel sounds. No distension or tympany. No guarding or rebound. No evidence of tenderness throughout. Back: No spinal tenderness. No costovertebral tenderness. Full range of motion. Skin: Warm, dry with normal turgor. Normal color with no rashes, no lesions, and no evidence of cellulitis. MS/ Extremity: Pulses equal, no cyanosis. Neurovascular intact. Full, normal range of motion. Neuro: Awake and alert, GCS 15, oriented to person, place, time, and situation. Cranial nerves II-XII grossly intact. Motor strength 5/5 in all extremities. Sensory grossly intact. Cerebellar exam normal. Normal gait. Psych: Awake, alert, with orientation to person, place and time. Behavior, mood, and affect are within normal limits. Vital Signs: 01:54 BP 204 / 93; Pulse 77; Resp 12; Temp 98.7; Pulse Ox 97% ; Weight 50.8 kg; Height 4 ft. pf1 10 in. ; Pain 0/10; 03:00 BP 119 / 79; Pulse 62; Resp 12; Pulse Ox 98% ; vc1 04:00 BP 109 / 71; Pulse 63; Resp 12; Pulse Ox 96% ; vc1 01:54 Body Mass Index 23.41 (50.80 kg, 147.32 cm) pf1 01:54 Pain Scale: Adult pf1 MDM: 03:57 Patient medically screened. kdr 07:59 Data reviewed: vital signs, nurses notes, lab test result(s), radiologic studies. ED kdr course: Patient is pressure was much improved in the ED and she remained asymptomatic and was happy with the care provided the plan for discharge and follow-up. 01/25 01:58 Order name: Basic Metabolic Panel; Complete Time: 03:07 kdr 01/25 01:58 Order name: CBC with Diff; Complete Time: 03:07 kdr 01/25 01:58 Order name: LFT's; Complete Time: 03:07 kdr 01/25 01:58 Order name: Magnesium; Complete Time: 03:07 kdr 01/25 01:58 Order name: NT PRO-BNP; Complete Time: 03:07 kdr 01/25 01:58 Order name: Troponin HS; Complete Time: 03:07 kdr 01/25 01:58 Order name: XRAY Chest (1 view) kdr 01/25 01:58 Order name: EKG; Complete Time: 01:59 kdr 01/25 01:58 Order name: Cardiac monitoring; Complete Time: 02:15 kdr 01/25 01:58 Order name: EKG - Nurse/Tech; Complete Time: 02:15 kdr 01/25 01:58 Order name: IV Saline Lock; Complete Time: 02:15 kdr 01/25 01:58 Order name: Labs collected and sent; Complete Time: 02:15 kdr 01/25 01:58 Order name: O2 Per Protocol; Complete Time: 02:15 kdr 01/25 01:58 Order name: O2 Sat Monitoring; Complete Time: 02:15 kdr Administered Medications: No medications were administered Disposition Summary: 01/25/23 03:57 Discharge Ordered Location: Home kdr Problem: an acute exacerbation kdr Symptoms: are resolved kdr Condition: Stable kdr Diagnosis - Hypertensive heart disease without heart failure kdr Followup: kdr - With: Private Physician - When: 2 - 3 days - Reason: If symptoms return, Further diagnostic work-up, Recheck today's complaints, Continuance of care, Re-evaluation by your physician Discharge Instructions: - Discharge Summary Sheet kdr - Hypertension, Adult, [id number] kdr Forms: - Medication Reconciliation Form kdr - Thank You Letter kdr - [email or web address] kdr Signatures: Dispatcher [employer] Abimael Alvarez MD MD kdr Iram Frye RN RN vc1 Corrections: (The following items were deleted from the chart) 03:08 01:54 PMHx: Osteoporosis; vc1 vc1
--- NOTE | 2023-01-25 03:57 | ER ---
Nurse's Notes [facility] Name: Daphne Samuels Age: 77 yrs Sex: Female : 1945 Arrival Date: 01/25/2023 Time: 01:34 Bed 14 Private MD: Diagnosis: Hypertensive heart disease without heart failure Presentation: 01/25 01:54 Chief complaint: Patient states: Pt c/o of high BP at home 207/117. Denies headache but pf1 head feels hot and feeling bad all day long. Coronavirus screen: Vaccine status: Patient reports receiving the 2nd dose of the covid vaccine. 01:54 Method Of Arrival: Ambulatory pf1 01:54 Initial Sepsis Screen: Does the patient meet any 2 criteria? No. Patient's initial pf1 sepsis screen is negative. Risk Assessment: Do you want to hurt yourself or someone else? Patient reports no desire to harm self or others. Onset of symptoms was January 24, 2023. 01:54 Acuity: AYSHA 3 pf1 01:54 Ebola Screen: Patient negative for fever greater than or equal to 101.5 degrees vc1 Fahrenheit, and additional compatible Ebola Virus Disease symptoms Patient denies exposure to infectious person. Patient denies travel to an Ebola-affected area in the 21 days before illness onset. No symptoms or risks identified at this time. 01:54 Initial Sepsis Screen: Does the patient have a suspected source of infection? Yes: vc1 Other: tooth infection. Triage Assessment: 01:54 General: Appears in no apparent distress. uncomfortable, Behavior is calm, cooperative, vc1 appropriate for age. Pain: Denies pain. EENT: No deficits noted. No signs and/or symptoms were reported regarding the EENT system. Neuro: Level of Consciousness is awake, alert, obeys commands, Oriented to person, place, time, situation, Appropriate for age. Cardiovascular: No deficits noted. Respiratory: Airway is patent Respiratory effort is even, unlabored, Respiratory pattern is regular, symmetrical. GI: No deficits noted. No signs and/or symptoms were reported involving the gastrointestinal system. : No deficits noted. No signs and/or symptoms were reported regarding the genitourinary system. Derm: No deficits noted. No signs and/or symptoms reported regarding the dermatologic system. Musculoskeletal: No deficits noted. No signs and/or symptoms reported regarding the musculoskeletal system. Historical: - Allergies: 01:54 No Known Allergies; vc1 - PMHx: 01:54 Hypertensive disorder; Hypothyroidism; Macular degenerative; vc1 - PSHx: 01:54 section; Cataract; vc1 - Immunization history:: Adult Immunizations up to date. - Social history:: Smoking status: Patient denies any tobacco usage or history of. Screenin:54 Abuse screen: Denies threats or abuse. Nutritional screening: No deficits noted. vc1 Tuberculosis screening: No symptoms or risk factors identified. 02:[address] [facility] ED Fall Risk Assessment (Adult) History of falling in the last 3 months, vc1 including since admission No falls in past 3 months (0 pts) Confusion or Disorientation No (0 pts) Intoxicated or Sedated No (0 pts) Impaired Gait No (0 pts) Mobility Assist Device Used No (0 pt) Altered Elimination No (0 pt) Score/Fall Risk Level 0 - 2 = Low Risk Oriented to surroundings, Maintained a safe environment, Educated pt \T\ family on fall prevention, incl call for assistance when getting out of bed. Assessment: 03:00 Reassessment: No changes from previously documented assessment. Patient and/or family vc1 updated on plan of care and expected duration. Pain level reassessed. Patient is alert, oriented x 3, equal unlabored respirations, skin warm/dry/pink. 04:00 Reassessment: No changes from previously documented assessment. Patient and/or family vc1 updated on plan of care and expected duration. Pain level reassessed. Patient is alert, oriented x 3, equal unlabored respirations, skin warm/dry/pink. Vital Signs: 01:54 BP 204 / 93; Pulse 77; Resp 12; Temp 98.7; Pulse Ox 97% ; Weight 50.8 kg; Height 4 ft. pf1 10 in. ; Pain 0/10; 03:00 BP 119 / 79; Pulse 62; Resp 12; Pulse Ox 98% ; vc1 04:00 BP 109 / 71; Pulse 63; Resp 12; Pulse Ox 96% ; vc1 01:54 Body Mass Index 23.41 (50.80 kg, 147.32 cm) pf1 01:54 Pain Scale: Adult pf1 ED Course: 01:36 Patient arrived in ED. ja2 01:54 Arm band placed on right wrist. vc1 01:54 Patient has correct armband on for positive identification. Bed in low position. Call vc1 light in reach. Client placed on continuous cardiac and pulse oximetry monitoring. NIBP monitoring applied. 01:57 Abimael Aguillon MD is Attending Physician. kdr 01:58 Triage completed. pf1 02:16 Inserted saline lock: 20 gauge in right antecubital area, using aseptic technique. mc5 Blood collected. 02:25 XRAY Chest (1 view) In Process Unspecified. EDMS 04:11 Iram Frye, RN is Primary Nurse. vc1 04:23 No provider procedures requiring assistance completed. IV discontinued, intact, vc1 bleeding controlled, No redness/swelling at site. Pressure dressing applied. Administered Medications: No medications were administered Medication: 03:09 VIS not applicable for this client. vc1 Outcome: 03:57 Discharge ordered by . kdr 04:23 Discharged to home ambulatory. vc1 04:23 Condition: good 04:23 Discharge instructions given to patient, Instructed on discharge instructions, follow up and referral plans. medication usage, Demonstrated understanding of instructions, follow-up care, medications. 04:24 Patient left the ED. vc1 Signatures: Dispatcher [employer] EDMS Abimael Aguillon MD MD [facility] Lamar Cruz2 Iram Frye, RN RN vc1 Helen Porter RN RN pf1 Maggie Kendrick mc5 Corrections: (The following items were deleted from the chart) 03:08 01:54 PMHx: Osteoporosis; vc1 vc1
[2023-01-25 06:01] VITALS: TEMP 98.7
[2023-01-25 06:27] VITALS: BP 109/71; O2SAT 96
--- NOTE | 2023-01-25 15:21 | RAD REPORT ---
EXAM DESCRIPTION: RAD - Chest Single View - 01/25/2023 2:23 am CLINICAL HISTORY: HTN TECHNIQUE: AP chest COMPARISON: None available for comparison FINDINGS: CHEST: Heart: The cardiomediastinal silhouette is within normal limits. Lungs: No focal consolidation. Mediastinum: Unremarkable Pleura: No appreciable effusion. No pneumothorax. Bones: Intact IMPRESSION: No acute cardiopulmonary disease. Electronically signed by: Joshua Gracia MD 01/25/2023 2:37 AM CDT Due to temporary technical issues with the PACS/Fluency reporting system, reports are being signed by the in house radiologist without review as a courtesy to ensure prompt reporting. The interpreting r adiologist is fully responsible for the content of the report.
--- NOTE | 2023-01-25 17:11 | EKG ---
Test Date: 2023-01-25 Test Time: 02:05:12 Java Software: MIKKI MEASUREMENT RESULTS: Intervals: Rate: 68 [place]: 152 QRSD: 76 QT: 396 QTc: 421 [place]: P: 60 [place]: 152 QRS: 7 T: 67 INTERPRETIVE STATEMENTS: Normal sinus rhythm Normal ECG Compared to ECG 08/23/2017 15:02:16 Sinus bradycardia no longer present Electronically Signed On 01-25-23 17:09:38 CDT by Asif Preciado
== END 2023-01-25 04:24 | disposition home or self-care (01) ==
LOC: ER 01:34
DX: I11.9 Hypertensive heart disease without heart failure (principal); I10 Essential (primary) hypertension
CPT/HCPCS: 36415; 71045; 80048; 80076; 83735; 83880; 84484; 85025; 93005; 99284

== ENCOUNTER 2024-09-07 12:27 | Inpatient (IN) | payer OTHER ==
--- OUTSIDE RECORDS SUMMARY | 2024-09-07 12:31 | XMS REPORT | Continuity of Care Document ---
Author Name Unknown Address [address] [place] [address] [facility] Address [address] [place] [address] Care Team Providers Care Preschool Teacher Assistant Name Role Phone Zulay Galindo Attending Clinician Unavailable Kary Anguiano Attending Clinician Unavailable Payers Payer Name Policy Type Policy Number Effective Date Expirati on Date Source [facility] Care Medicare Advantage [id number] 2020 00:00:00 [facility] Care Medicare Advantage [id number] 2020 00:00:00 [facility] Problems Condition Name Condition Details Condition Category Status Onset Date Resolution Date Last Treatment Date Treating Clinician Comments Source Decreased hearing Decreased hearing Problem [facility] [id number] Irregular heart beat Problem [facility] [id number] Hematoma Problem Active Comm on [facility] [id number] Screening for osteoporos is Problem Active [facility] Hypertensi on Hypertensi on Problem Active [facility] Hyperlipop roteinemia Acquired hyperlipop roteinemia Problem Active [facility] 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 Problem Active [facility] Acquired hypothyroi dism Acquired hypothyroi dism Problem Active [facility] Hyperlipid emia Hyperlipid emia Problem Active [facility] [id number] Elevated serum globulin level Problem Active [facility] [id number] 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 [facility] Allergic rhinitis Allergic rhinitis, unspecifie d seasonalit y, unspecifie d trigger Problem Active [facility] [id number] Needs flu shot Problem Active [facility] [id number] Arthritis of left hand Problem Active [facility] [id number] Renal insufficie ncy Problem Active [facility] Vitamin deficiency Encounter for vitamin deficiency screening Problem Active [facility] 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 Problem Active [facility] [id number] Primary osteoarthr itis, left hand Problem Active [facility] [id number] Primary osteoarthr itis, right hand Problem Active [facility] Allergies, Adverse Reactions, Alerts Allergy Name Allergy Type Status Severity Reaction(s) Onset Date Inactive Date Treating Clinician Comments Source loratadi ne / pseudoep hedrine loratadi ne / pseudoep hedrine Active Unknown [facility] Social History Social Habit Start Date Stop Date Quantity Comments Source History of Tobacco Use [facility] Sex Assigned At [facility] Smoking Status Start Date Stop Date Source Never Smoker [facility] Former Smoker 2022-01-21 00:00:00 2022-01-21 00:00:00 [facility] Medications Ordered Medication Name Filled Medication Name Start Date Stop Date Current Medication? Ordering Clinician Indication Dosage Frequency Signature (SIG) Comments Components Source Benzonatate 100 MG Benzonatate 100 MG 2023-07 00:00: 00 No 1{capsu le_as_n eeded} TID Benzonatat e 100 MG SOLU-Medrol SOLU-Medrol 2023-07 00:00: 00 No 125mg [facility] Vitamin D Vitamin D No 1{ta ble t} QD Vitamin D CoQ10 200 MG CoQ10 200 MG No 1{capsu le_with _a_meal } BID CoQ10 200 MG Losartan Potassium 25 MG Losartan Potassium 25 MG No 1{table t} QD Losartan Potassium 25 MG Fexofenadin e HCl 180 MG Fexofenadin e HCl 180 MG No QD Fexofenadi ne HCl 180 MG Flecainide Acetate 50 MG Flecainide Acetate 50 MG No BID Flecainide Acetate 50 MG Levothyroxi ne Sodium 25 MCG Levothyroxi ne Sodium 25 MCG No QD Levothyrox ine Sodium 25 MCG Carvedilol 12.5 MG Carvedilol 12.5 MG No 1{table t} BID Carvedilol 12.5 MG Multi Vitamin - Multi Vitamin - No 1{table t} QD Multi Vitamin - Tyrvaya 0.03 MG/ACT Tyrvaya 0.03 MG/ACT No Tyrvaya 0.03 MG/ACT Immunizations Ordered Immunization Name Filled Immunization Name Date Status Comments Source FluAD FluAD 2021-04-03 14:11:00 Completed [facility] FluAD FluAD 2021-04-03 14:11:00 Completed [facility] FluAD FluAD 2020-05-01 10:14:00 Completed [facility] FluAD FluAD 2020-05-01 10:14:00 Completed [facility] FluAD FluAD 2019-03-29 12:37:00 Completed [facility] FluAD FluAD 2019-03-29 12:37:00 Completed [facility] FluAD FluAD 2019-03-29 00:00:00 Completed [facility] FluAD FluAD Unknown Completed [facility] FluAD FluAD Unknown Completed [facility] FluAD FluAD Unknown Completed Common [facility] FluAD FluAD Unknown Completed [facility] FluAD FluAD Unknown Completed [facility] FluAD FluAD Unknown Completed Common [facility] FluAD FluAD Unknown Completed Common [facility] FluAD FluAD Unknown Completed Common [facility] FluAD FluAD Unknown Completed [facility] FluAD FluAD Unknown Completed [facility] FluAD FluAD Unknown Completed [facility] FluAD FluAD Unknown Completed [facility] Vital Signs Vital Name Observation Time Observation Value Comments Kathy alonso height 2024-07-04 14:00:00 58 [in_i] Commo n [facility] weight 2024-07-04 14:00:00 98.8 [lb_av] Com [facility] temperature 2024-07-04 14:00:00 97.0 [degF] Com [facility] bmi 2024-07-04 14:00:00 20.65 kg/m2 Comm on [facility] oximetry 2024-07-04 14:00:00 98 % Commo n [facility] respiratory rate 2024-07-04 14:00:00 16 /min [facility] blood pressure systolic 2024-07-04 14:00:00 142 mm[Hg] [facility] blood pressure diastolic 2024-07-04 14:00:00 66 mm[Hg] [facility] height 2024-05-17 11:20:00 58 [in_i] Commo n [facility] weight 2024-05-17 11:20:00 100 [lb_av] Comm on [facility] temperature 2024-05-17 11:20:00 97.3 [degF] Com [facility] bmi 2024-05-17 11:20:00 20.9 kg/m2 Commo n [facility] oximetry 2024-05-17 11:20:00 97 % Commo n [facility] respiratory rate 2024-05-17 11:20:00 16 /min [facility] blood pressure systolic 2024-05-17 11:20:00 120 mm[Hg] Common [facility] blood pressure diastolic 2024-05-17 11:20:00 72 mm[Hg] Common [facility] height 2024-02-15 11:20:00 58 [in_i] Commo n [facility] weight 2024-02-15 11:20:00 100.4 [lb_av] Co [facility] temperature 2024-02-15 11:20:00 97.6 [degF] Com mon [facility] bmi 2024-02-15 11:20:00 20.98 kg/m2 Comm on [facility] oximetry 2024-02-15 11:20:00 97 % Commo n [facility] respiratory rate 2024-02-15 11:20:00 16 /min [facility] blood pressure systolic 2024-02-15 11:20:00 118 mm[Hg] [facility] blood pressure diastolic 2024-02-15 11:20:00 68 mm[Hg] [facility] height 2023-11-16 10:00:00 58 [in_i] Commo n [facility] weight 2023-11-16 10:00:00 101.6 [lb_av] Co [facility] temperature 2023-11-16 10:00:00 97.3 [degF] Com [facility] bmi 2023-11-16 10:00:00 21.23 kg/m2 Comm on [facility] oximetry 2023-11-16 10:00:00 98 % Commo n [facility] respiratory rate 2023-11-16 10:00:00 16 /min [facility] blood pressure systolic 2023-11-16 10:00:00 112 mm[Hg] [facility] diastolic 2023-11-16 10:00:00 56 mm[Hg] Common [facility] height 2023-08-16 10:00:00 58 [in_i] Commo n [facility] weight 2023-08-16 10:00:00 102 [lb_av] Comm on [facility] temperature 2023-08-16 10:00:00 97.8 [degF] Com mon [facility] bmi 2023-08-16 10:00:00 21.32 kg/m2 Comm on [facility] oximetry 2023-08-16 10:00:00 97 % Commo n [facility] respiratory rate 2023-08-16 10:00:00 16 /min Common [facility] blood pressure systolic 2023-08-16 10:00:00 134 mm[Hg] Common [facility] blood pressure diastolic 2023-08-16 10:00:00 76 mm[Hg] Common [facility] height 2023-08-16 11:20:00 58 [in_i] Commo n [facility] weight 2023-08-16 11:20:00 102 [lb_av] Comm on [facility] temperature 2023-08-16 11:20:00 97.8 [degF] Com mon [facility] bmi 2023-08-16 11:20:00 21.32 kg/m2 Comm on [facility] oximetry 2023-08-16 11:20:00 97 % Commo n [facility] respiratory rate 2023-08-16 11:20:00 16 /min Common [facility] blood pressure systolic 2023-08-16 11:20:00 134 mm[Hg] Common [facility] blood pressure diastolic 2023-08-16 11:20:00 76 mm[Hg] [facility] height 2023-04-22 09:40:00 58 [in_i] Commo n [facility] weight 2023-04-22 09:40:00 106.8 [lb_av] Co mmon [facility] temperature 2023-04-22 09:40:00 97.0 [degF] Com mon [facility] bmi 2023-04-22 09:40:00 22.32 kg/m2 Comm on [facility] oximetry 2023-04-22 09:40:00 97 % Commo n [facility] respiratory rate 2023-04-22 09:40:00 16 /min Common [facility] blood pressure systolic 2023-04-22 09:40:00 139 mm[Hg] Common [facility] blood pressure diastolic 2023-04-22 09:40:00 77 mm[Hg] [facility] height 2023-01-20 09:20:00 58 [in_i] Commo n [facility] weight 2023-01-20 09:20:00 113.4 [lb_av] Co mmon [facility] temperature 2023-01-20 09:20:00 97.0 [degF] Com [facility] bmi 2023-01-20 09:20:00 23.7 kg/m2 Commo n [facility] oximetry 2023-01-20 09:20:00 98 % Commo n [facility] respiratory rate 2023-01-20 09:20:00 16 /min [facility] blood pressure systolic 2023-01-20 09:20:00 125 mm[Hg] Common [facility] blood pressure diastolic 2023-01-20 09:20:00 81 mm[Hg] [facility] height 2022-11-25 13:20:00 58 [in_i] Commo n [facility] weight 2022-11-25 13:20:00 114.8 [lb_av] Co [facility] temperature 2022-11-25 13:20:00 98.4 [degF] Com [facility] bmi 2022-11-25 13:20:00 23.99 kg/m2 Comm on [facility] oximetry 2022-11-25 13:20:00 96 % Commo n [facility] respiratory rate 2022-11-25 13:20:00 16 /min Common [facility] blood pressure systolic 2022-11-25 13:20:00 122 mm[Hg] [facility] blood pressure diastolic 2022-11-25 13:20:00 84 mm[Hg] [facility] height 2022-11-25 14:00:00 58 [in_i] Commo n [facility] weight 2022-11-25 14:00:00 114.8 [lb_av] Co mmon [facility] temperature 2022-11-25 14:00:00 98.4 [degF] Com mon [facility] bmi 2022-11-25 14:00:00 23.99 kg/m2 Comm on [facility] oximetry 2022-11-25 14:00:00 96 % Commo n [facility] respiratory rate 2022-11-25 14:00:00 16 /min [facility] blood pressure systolic 2022-11-25 14:00:00 122 mm[Hg] [facility] blood pressure diastolic 2022-11-25 14:00:00 84 mm[Hg] Common [facility] height 2022-02-04 08:40:00 58 [in_i] Commo n [facility] weight 2022-02-04 08:40:00 105 [lb_av] Comm on [facility] bmi 2022-02-04 08:40:00 21.94 kg/m2 Comm on [facility] height 2021-10-15 09:00:00 58 [in_i] Commo n [facility] weight 2021-10-15 09:00:00 104 [lb_av] Comm on [facility] bmi 2021-10-15 09:00:00 21.73 kg/m2 Comm on [facility] height 2021-04-10 09:00:00 58 [in_i] Commo n [facility] weight 2021-04-10 09:00:00 104 [lb_av] Comm on [facility] temperature 2021-04-10 09:00:00 97.4 [degF] Com mon [facility] bmi 2021-04-10 09:00:00 21.73 kg/m2 Comm on [facility] oximetry 2021-04-10 09:00:00 97 % Commo n [facility] respiratory rate 2021-04-10 09:00:00 15 /min [facility] blood pressure systolic 2021-04-10 09:00:00 128 mm[Hg] [facility] blood pressure diastolic 2021-04-10 09:00:00 70 mm[Hg] [facility] Encounters Start Date/Time End Date/Time Encounter Type Admission Type Attending [facility] Facility Care Department Encounter ID Source 2024-02-11 10:49:00 Outpatient MateoZulay [facility] [id number] [facility] 2023-11-16 09:29:00 Outpatient MateoZulay STLMLC STL[facility] [id number] [facility] 2022-10-01 10:01:00 Outpatient Selena Galindohani [facility] STL[facility] [id number] [facility] 2022-09-09 16:36:00 Outpatient Mateo Zulay [facility]LML[facility] STL[facility] [id number] [facility] 2022-02-02 08:15:00 Outpatient Kary Anguiano STKARRIL[facility] STL[facility] [id number] [facility] 2021-10-13 08:34:01 Outpatient Kary Anguiano [facility] STL[facility] [id number] [facility] 2021-08-13 12:37:36 Outpatient Anguiano, Na [facility]LMLC ST[facility] [id number] [facility] 2021-08-13 12:12:37 Outpatient Anguiano, Na [facility]LMLC STL[facility]C [id number] [facility] 2021-08-13 12:11:40 Outpatient Anguiano, Na [facility]C ST[facility] [id number] [facility] 2021-08-13 12:09:23 Outpatient Anguiano, Na [facility]LMLC STL[facility] [id number] [facility] 2021-08-13 11:25:00 Outpatient Anguiano, Na [facility]LMLC STL[facility]C [id number] [facility] 2021-08-13 11:17:12 Outpatient Anugiano, Na [facility]C STL[facility]C [id number] [facility] 2024-07-04 00:00:00 2024-07-04 00:00:00 (TEL) [facility]C [facility] [id number] [facility] 2024-07-04 00:00:00 2024-07-04 00:00:00 OFFICE VISIT ESTAB PT LEVEL 4 [facility] STL[facility]C [id number] [facility] 2024-05-17 00:00:00 2024-05-17 00:00:00 OFFICE VISIT ESTAB PT LEVEL 4 [facility] STL[facility] [id number] [facility] 2024-02-15 00:00:00 2024-02-15 00:00:00 OFFICE VISIT ESTAB PT LEVEL 4 [facility] STL[facility]C [id number] [facility] 2023-11-16 00:00:00 2023-11-16 00:00:00 OFFICE VISIT ESTAB PT LEVEL 4 [facility] ST[facility] [id number] [facility] 2023-08-16 00:00:00 2023-08-16 00:00:00 SUB ANNUAL [facility] VISIT STLML[facility] STL[facility]C [id number] [facility] 2023-08-16 00:00:00 2023-08-16 00:00:00 OFFICE VISIT ESTAB PT LEVEL 4 [facility] STL[facility]C [id number] [facility] 2023-04-22 00:00:00 2023-04-22 00:00:00 OFFICE VISIT ESTAB PT LEVEL 4 [facility] STL[facility]C [id number] [facility] 2023-04-22 00:00:00 2023-04-22 00:00:00 (TEL) [facility]MLC STL[facility]C [id number] [facility] 2023-04-22 00:00:00 2023-04-22 00:00:00 (TEL) [facility]C STL[facility]C [id number] [facility] 2023-01-20 00:00:00 2023-01-20 00:00:00 OFFICE VISIT ESTAB PT LEVEL 4 [facility] ST[facility] [id number] [facility] 2022-12-21 00:00:00 2022-12-21 00:00:00 (TEL) STLMLC STL[facility]C [id number] [facility] 2022-11-25 00:00:00 2022-11-25 00:00:00 OFFICE VISIT ESTAB PT LEVEL 4 [facility] STL[facility]C [id number] [facility] 2022-11-25 00:00:00 2022-11-25 00:00:00 SUB ANNUAL [facility] VISIT [facility] STL[facility]C [id number] [facility] 2022-10-01 00:00:00 2022-10-01 00:00:00 (TEL) ST[facility]C [facility]C [id number] [facility] 2022-02-04 00:00:00 2022-02-04 00:00:00 OFFICE VISIT ESTAB PT LEVEL 4 [facility] [id number] [facility] 2021-10-15 00:00:00 2021-10-15 00:00:00 (TEL) [facility]C [facility] [id number] [facility] 2021-10-15 00:00:00 2021-10-15 00:00:00 OFFICE VISIT ESTAB PT LEVEL 4 [facility] [id number] [facility] 2021-10-15 00:00:00 2021-10-15 00:00:00 (TEL) [facility]C [facility] [id number] [facility] 2021-04-10 00:00:00 2021-04-10 00:00:00 OFFICE VISIT ESTAB PT LEVEL 4 [facility] [id number] [facility] 2021-04-03 00:00:00 2021-04-03 00:00:00 (INJ) Injection [facility]C [facility] [id number] [facility] 2020-09-06 00:00:00 2020-09-06 00:00:00 Outpatient [facility] [id number] [facility] 2020-06-28 00:00:00 2020-06-28 00:00:00 Outpatient [facility] [id number] [facility] 2020-05-01 00:00:00 2020-05-01 00:00:00 Outpatient [facility] [id number] [facility] 2019-12-26 13:00:00 2019-12-26 13:00:[address] [facility] [id number] [facility] 2019-06-27 13:00:00 2019-06-27 13:00:[address] [facility] [id number] [facility] 2019-03-31 05:20:00 2019-03-31 05:20:[address] [facility] [id number] [facility] 2019-03-29 11:00:00 2019-03-29 11:00:[address] [facility] [facility] [id number] [facility] 2019-03-28 13:00:00 2019-03-28 13:00:[address] [facility] [id number] [facility] 2018-12-20 13:00:00 2018-12-20 13:00:[address] [facility] [id number] [facility] 2018-09-20 09:30:00 2018-09-20 09:30:[address] [facility] [id number] [facility] 2018-06-20 14:30:00 2018-06-20 14:30:[address] [facility] [facility] [id number] [facility] 2018-03-17 14:00:00 2018-03-17 14:00:[address] [facility] [facility] [id number] [facility] 2017-12-14 14:15:00 2017-12-14 14:15:[address] [facility] [id number] [facility] Results Test Description Test Time Test Comments Results Result Co mments Source POC, COVID 19 Antigen + Flu by MelvaPOC, COVID 19 Antigen + Flu by Melva
[2024-09-07 13:36] LABS: Absolute Eosinophils 0.1 K/uL (0-0.5); Absolute Lymphocytes (CBC) 1.1 K/uL (0.7-4.9); Absolute Monocytes 0.6 K/uL (0.1-1.3); Absolute Neutrophil 7.7 K/uL (1.8-8.0); Basophils % 0.3 % (0-1.3); Eosinophils % 0.9 % (0-4.4); Hemoglobin 13.8 g/dL (12.0-15.0); Lymphocytes % 11.1 % (15.3-44.8); MCH 29.4 pg (27.0-35.0); MCHC 32.9 g/dL (32.0-36.0); MCV 89.2 fL (80-100); MPV 9.9 fL (7.6-11.3); Monocytes % 6.3 % (3.3-12.3); Neutrophils % 81.4 % (41.7-73.7); Platelets 258 thou/uL (152-406); RBC Red Blood Cell Count 4.71 M/uL (3.86-4.86); Red Cell Distribution Width 14.2 % (12.1-15.2)
[2024-09-07 13:38] LABS: PT Prothrombin Time 12.6 SECONDS (9.4-12.5); Protime INR 1.2
[2024-09-07 13:50] LABS: ALT/SGPT 22 U/L (13-56); AST/SGOT 16 U/L (15-37); Albumin 3.1 g/dL (3.4-5.0); Albumin/Globulin Ratio 0.7 (1.1-1.8); Alkaline Phosphatase 100 U/L (45-117); Anion Gap 7.2 mEq/L (5.0-15.0); BUN Blood Urea Nitrogen 18 mg/dL (7-18); Bicarbonate 29 mEq/L (21-32); Bilirubin Total 0.5 mg/dL (0.2-1.0); Globulin 4.5 g/dL (2.3-3.5); Glomerular Filtration Rate 73 ml/min (=/>90); Glucose Level 109 mg/dL (74-106); Magnesium 2.4 mg/dL (1.6-2.4); NT PRO-BNP 416 pg/mL (<450); Potassium 4.2 mEq/L (3.5-5.1); Protein, Total 7.6 g/dL (6.4-8.2); Sodium Level 137 mEq/L (136-145); Troponin High Sensitivity 7.2 pg/mL (<58.9)
[2024-09-07 13:51] LABS: Bilirubin Direct < 0.2 mg/dL (0-0.2); Bilirubin Indirect, Calculated 0.3 mg/dL (0.2-0.8)
--- NOTE | 2024-09-07 14:06 | RAD REPORT ---
EXAMINATION: CTA CHEST PE CLINICAL INDICATION: HEMOPTYSIS TECHNIQUE: This examination was performed according to an angiographic protocol with 3D post-processi ng. This involves 3D reconstructions, MIPs, volume rendered images and/or shaded surface rendering. One or more of the following dose reduction techniques were used: Automated exposure control, adjustm ent of the mA and/or kV according to patient size, and/or iterative reconstruction. Unless otherwise specified, incidental findings do not require dedicated imaging follow-up. COMPARISON: No prior exam. FINDINGS: PULMONARY ARTERIES: Normal caliber. No evidence of pulmonary emboli to the subsegmental level. THORACIC AORTA: Normal caliber and configuration. LUNGS: There is a 10-11 mm cavitary lesion in the left apex. There is additional irregular cavitary l esion in the posterior right upper lobe measuring 13 mm. Several additional irregular nodules and interstitial thickening seen bilaterally. Mild bronchiectasis in the lingula and right middle lobe. S everal additional tree-in-bud opacities are seen in both lower lobes. PLEURA: No pleural effusion. No pneumothorax. MEDIASTINUM AND LYMPH NODES: Mild lymphadenopathy seen in the mediastinum and both hilar regions. OSSEOUS STRUCTURES AND CHEST WALL: Intact. UPPER ABDOMEN: No significant abnormalities. IMPRESSION: No evidence of pulmonary emboli to the subsegmental level. Extensive irregular nodular lesions, several of which are cavitary, noted in both lungs along with ex tensive tree-in-bud opacities. This is likely related to endobronchial spread of infection, typically an atypical infection such as mycobacterial species. Neoplasm seems unlikely but not comple tely ruled out. Septic emboli may also be considered.
--- NOTE | 2024-09-07 14:29 | ER ---
Nurse's Notes [facility] Name: Daphne Samuels Age: 79 yrs Sex: Female : 1945 Arrival Date: 09/07/2024 Time: 12:27 Bed 7 Private MD: Diagnosis: Bilateral cavitary lesions/pneumonia, hemoptysis Presentation: 09/07 12:38 Chief complaint: Patient states: she started coughing up blood today. patient reports ap3 this has never happened before. patient states that a few nights ago she had painful breathing, but that has resolved. Coronavirus screen: At this time, the client does not indicate any symptoms associated with coronavirus-19. Ebola Screen: No symptoms or risks identified at this time. Initial Sepsis Screen: Does the patient meet any 2 criteria? No. Patient's initial sepsis screen is negative. Does the patient have a suspected source of infection? No. Patient's initial sepsis screen is negative. Risk Assessment: Do you want to hurt yourself or someone else? Patient reports no desire to harm self or others. Onset of symptoms was September 07, 2024. 12:38 Method Of Arrival: Ambulatory ap3 12:38 Acuity: AYSHA 3 ap3 Triage Assessment: 12:42 General: Appears in no apparent distress. Behavior is calm, cooperative, appropriate ap3 for age. Pain: Denies pain. EENT: No signs and/or symptoms were reported regarding the EENT system. Neuro: Level of Consciousness is awake, alert, obeys commands, Oriented to person, place, time, situation. Cardiovascular: Patient's skin is warm and dry. Respiratory: Airway is patent Respiratory effort is even, unlabored, Respiratory pattern is regular, symmetrical, Sputum is reports bloody sputum. Historical: - Allergies: 12:40 Omeprazole; ap3 12:40 Metronidazole; ap3 - Home Meds: 12:40 carvedilol 12.5 mg oral tablet [Active]; losartan 25 mg oral tablet [Active]; ap3 flecainide 50 mg oral tablet [Active]; levothyroxine 25 mcg tablet [Active]; famotidine 20 mg Oral tablet [Active]; aspirin 81 mg Oral capsule [Active]; - PMHx: 12:37 Hypertensive disorder; Hypothyroidism; Macular degenerative; laryngopharyngeal reflux ap3 disease (Macular degenerative); - Immunization history:: Client reports receiving the 2nd dose of the Covid vaccine, Flu vaccine is up to date. - Infectious Disease History:: Denies. - Social history:: Smoking status: Patient denies any tobacco usage or history of. Screenin:43 [facility] ED Fall Risk Assessment (Adult) History of falling in the last 3 months, ap3 including since admission No falls in past 3 months (0 pts) Confusion or Disorientation No (0 pts) Intoxicated or Sedated No (0 pts) Impaired Gait No (0 pts) Mobility Assist Device Used No (0 pt) Altered Elimination No (0 pt) Score/Fall Risk Level 0 - 2 = Low Risk Oriented to surroundings, Maintained a safe environment, Educated pt \T\ family on fall prevention, incl call for assistance when getting out of bed, Assessed \T\ reinforced patient's understanding of fall precautions, Hourly rounding (assess needs \T\ fall precautionary measures) done, Used ambulatory aids as needed (educated on \T\ assisted with). Abuse screen: Denies threats or abuse. Nutritional screening: No deficits noted. Tuberculosis screening: No symptoms or risk factors identified. Assessment: 12:45 General: Appears in no apparent distress. comfortable, Behavior is calm, cooperative, bp appropriate for age. 13:30 Reassessment: Patient is alert, oriented x 3, equal unlabored respirations, skin aa5 warm/dry/pink. Pt given warm blankets for comfort. . Vital Signs: 12:38 BP 181 / 80; Pulse 80; Resp 18; Temp 98.2; Pulse Ox 99% ; Weight 40.82 kg; Height 4 ft. ap3 10 in. ; 12:38 Body Mass Index 18.81 (40.82 kg, 147.32 cm) ap3 ED Course: 12:30 Patient arrived in ED. mr 12:30 Xiao Briones MD is Attending Physician. sp3 12:40 Triage completed. ap3 12:43 Arm band placed on left wrist. ap3 12:45 Sheldon Coffey, BIMAL is Primary Nurse. bp 13:26 Patient has correct armband on for positive identification. bp 13:26 Inserted saline lock: 22 gauge in right forearm, using aseptic technique. Blood bp collected. Flushed with 10 mL NS. 13:28 EKG done, by ED staff, reviewed by Xiao Briones MD. aa5 13:56 CT Chest For PE Angio In Process Unspecified. EDWV 14:27 Edenilson Perry MD is Hospitalizing Provider. sp3 09/08 00:16 Provided Education on: need for admission. al5 00:16 No provider procedures requiring assistance completed. Patient admitted, IV remains in al5 place. Administered Medications: 09/07 15:49 Drug: Piperacillin-Tazobactam IVPB 3.375 grams IVPB once over 60 mins; (mix in NS 100 bp mL) Route: IVPB; Infused Over: 60 mins; Site: right forearm; 16:22 Follow up: IV Status: Completed infusion bp 16:22 Drug: vancoMYCIN IVPB 1 grams IVPB once over 2 hrs Route: IVPB; Infused Over: 2 hrs; bp Site: right forearm; 09/08 00:17 Follow up: Response: No adverse reaction; IV Status: Completed infusion; IV Intake: al5 250ml Medication: 00:16 VIS not applicable for this client. al5 Intake: 00:17 IV: 250ml; Total: 250ml. al5 Outcome: 09/07 14:28 Decision to Hospitalize by Provider. sp3 09/08 00:16 Admitted to Med/surg accompanied by tech, via stretcher, room 222, with chart, al5 Condition: stable Instructed on the need for admit, 00:17 Patient left the ED. al5 Signatures: Dispatcher [employer] EDWV JamariMalini, Reg Reg mr MuñozMary, RN RN aa5 Sheldon Coffey RN RN bp Prokisch, Amanda, RN RN ap3 Xiao Briones MD MD sp3 Sofya Polk RN RN al5
--- NOTE | 2024-09-07 14:29 | EDPHYS ---
Physician Documentation [facility] Name: Daphne Samuels Age: 79 yrs Sex: Female : 1945 Arrival Date: 09/07/2024 Time: 12:27 Bed 7 Private MD: ED Physician Xiao Briones HPI: 09/07 12:59 This 79 yrs old Female presents to ER via Ambulatory with complaints of Coughing up sp3 blood. 12:59 79-year-old female with history of hypertension, hypothyroidism, esophageal sp3 reflux/laryngeal reflux now presents to the ED with chief complaint coughing up blood x 3 episodes today with tiara blood being coughed up. No episodes of emesis, nausea, abdominal pain, back pain, history of GI bleed, headache, neck pain, syncope, near syncope, bleeding anywhere else, rash, or any other signs or symptoms on ROS at this time. No prior history of DVT or PE. Patient is on 81 mg of aspirin but no other antiplatelet or anticoagulant agents.. Historical: - Allergies: 12:40 Omeprazole; ap3 12:40 Metronidazole; ap3 - Home Meds: 12:40 carvedilol 12.5 mg oral tablet [Active]; losartan 25 mg oral tablet [Active]; ap3 flecainide 50 mg oral tablet [Active]; levothyroxine 25 mcg tablet [Active]; famotidine 20 mg Oral tablet [Active]; aspirin 81 mg Oral capsule [Active]; - PMHx: 12:37 Hypertensive disorder; Hypothyroidism; Macular degenerative; laryngopharyngeal reflux ap3 disease (Macular degenerative); - Immunization history:: Client reports receiving the 2nd dose of the Covid vaccine, Flu vaccine is up to date. - Infectious Disease History:: Denies. - Social history:: Smoking status: Patient denies any tobacco usage or history of. ROS: 13:00 Constitutional: Negative for fever, chills, and weight loss, Eyes: Negative for injury, sp3 pain, redness, and discharge, ENT: Negative for injury, pain, and discharge, Neck: Negative for injury, pain, and swelling, Cardiovascular: Negative for chest pain, palpitations, and edema, Abdomen/GI: Negative for abdominal pain, nausea, vomiting, diarrhea, and constipation, Back: Negative for injury and pain, MS/Extremity: Negative for injury and deformity, Skin: Negative for injury, rash, and discoloration, Neuro: Negative for headache, weakness, numbness, tingling, and seizure, Psych: Negative for depression, anxiety, suicide ideation, homicidal ideation, and hallucinations, Allergy/Immunology: Negative for hives, rash, and allergies, Endocrine: Negative for neck swelling, polydipsia, polyuria, polyphagia, and marked weight changes, Hematologic/Lymphatic: Negative for swollen nodes, abnormal bleeding, and unusual bruising, 13:00 All other systems are negative, Exam: 13:01 Constitutional: This is a well developed, well nourished patient who is awake, alert, sp3 and in no acute distress. Head/Face: Normocephalic, atraumatic. Eyes: Pupils equal round and reactive to light, extra-ocular motions intact. Lids and lashes normal. Conjunctiva and sclera are non-icteric and not injected. Cornea within normal limits. Periorbital areas with no swelling, redness, or edema. ENT: Nares patent. No nasal discharge, no septal abnormalities noted. External auditory canals are clear. Oropharynx with no redness, swelling, or masses, exudates, or evidence of obstruction, uvula midline. Mucous membranes moist. Neck: Trachea midline, no thyromegaly or masses palpated, and no cervical lymphadenopathy. Supple, full range of motion without nuchal rigidity, or vertebral point tenderness. No Meningismus. Chest/axilla: Normal chest wall appearance and motion. Nontender with no deformity. No lesions are appreciated. Cardiovascular: Regular rate and rhythm with a normal S1 and S2. No gallops, murmurs, or rubs. Normal PMI, no JVD. No pulse deficits. Abdomen/GI: Soft, non-tender, with normal bowel sounds. No distension or tympany. No guarding or rebound. No evidence of tenderness throughout. Back: No spinal tenderness. No costovertebral tenderness. Full range of motion. Skin: Warm, dry with normal turgor. Normal color with no rashes, no lesions, and no evidence of cellulitis. MS/ Extremity: Pulses equal, no cyanosis. Neurovascular intact. Full, normal range of motion. Neuro: Awake and alert, GCS 15, oriented to person, place, time, and situation. Cranial nerves II-XII grossly intact. Motor strength 5/5 in all extremities. Sensory grossly intact. Cerebellar exam normal. Normal gait. Psych: Awake, alert, with orientation to person, place and time. Behavior, mood, and affect are within normal limits. 13:01 Respiratory: Diffuse rhonchi noted with mild active cough. No active hemoptysis noted., 13:37 ECG was reviewed by the Attending Physician. EKG demonstrates normal sinus rhythm at 71 sp3 bpm with normal intervals, normal QRS, normal axis, normal ST/T segments without evidence of acute ischemia. Vital Signs: 12:38 BP 181 / 80; Pulse 80; Resp 18; Temp 98.2; Pulse Ox 99% ; Weight 40.82 kg; Height 4 ft. ap3 10 in. ; 12:38 Body Mass Index 18.81 (40.82 kg, 147.32 cm) ap3 MDM: 12:45 Medical Screening Exam initiated sp3 13:01 Data reviewed: vital signs, nurses notes, old medical records, lab test result(s), EKG, sp3 radiologic studies. ED course: 79-year-old female with hemoptysis without significant chest pain or shortness of breath. Differential diagnosis includes pulmonary embolism, pneumonia, bronchitis, esophagitis, coagulopathy, among others. Workup will include EKG, labs including coagulation profile and troponin, and CT scan of the chest with PE protocol. Vital signs are currently normal except for mild elevation of blood pressure at 181/80. Patient is in no acute distress and satting at 99% on room air talking in full sentences. Disposition pending workup and patient course.. 14:28 ED course: CT chest demonstrates extensive bilateral tree-in-bud sp3 opacification/inflammatory changes several of which are cavitary in nature. Will obtain cultures, sputum culture and I have discussed the case with Dr. Alcon roberto who suggested we start Zosyn and vancomycin IV. Patient will be admitted to hospitalist service.. 09/07 12:58 Order name: Basic Metabolic Panel; Complete Time: 14:00 sp3 09/07 12:58 Order name: CBC with Diff; Complete Time: 14:00 sp3 09/07 12:58 Order name: LFT's; Complete Time: 14:00 sp3 09/07 12:58 Order name: Magnesium; Complete Time: 14:00 sp3 09/07 12:58 Order name: NT PRO-BNP; Complete Time: 14:00 sp3 09/07 12:58 Order name: PT-INR; Complete Time: 14:00 sp3 09/07 12:58 Order name: Troponin HS; Complete Time: 14:00 sp3 09/07 14:22 Order name: Blood Culture Adult (2) sp3 09/07 14:22 Order name: Sputum Culture sp3 09/07 15:23 Order name: CBC with Automated Diff EDMS 09/07 15:23 Order name: CBC with Automated Diff EDMS 09/07 15:23 Order name: Comprehensive Metabolic Panel EDMS 09/07 15:23 Order name: Comprehensive Metabolic Panel EDMS 09/07 15:23 Order name: Magnesium EDMS 09/07 15:23 Order name: Magnesium EDMS 09/07 15:25 Order name: Acid Fast Bacilli Culture EDMS 09/07 12:58 Order name: CT Chest For PE Angio; Complete Time: 14:15 sp3 09/07 15:22 Order name: CONS Physician Consult EDMS 09/07 12:58 Order name: Cardiac monitoring; Complete Time: 13:26 sp3 09/07 12:58 Order name: EKG - Nurse/Tech; Complete Time: 13:26 sp3 09/07 12:58 Order name: IV Saline Lock; Complete Time: 13:26 sp3 09/07 12:58 Order name: Labs collected and sent; Complete Time: 13:26 sp3 09/07 12:58 Order name: O2 Per Protocol; Complete Time: 13:26 sp3 09/07 12:58 Order name: O2 Sat Monitoring; Complete Time: 13:26 sp3 Administered Medications: 15:49 Drug: Piperacillin-Tazobactam IVPB 3.375 grams IVPB once over 60 mins; (mix in NS 100 bp mL) Route: IVPB; Infused Over: 60 mins; Site: right forearm; 16:22 Follow up: IV Status: Completed infusion bp 16:22 Drug: vancoMYCIN IVPB 1 grams IVPB once over 2 hrs Route: IVPB; Infused Over: 2 hrs; bp Site: right forearm; 09/08 00:17 Follow up: Response: No adverse reaction; IV Status: Completed infusion; IV Intake: al5 250ml Disposition Summary: 09/07/24 14:28 Hospitalization Ordered Notes: Hospitalization Status: Inpatient Admission sp3 Provider: Edenilson Perry3 Location: Telemetry/MedSurg (Inpatient) sp3 Condition: Stable sp3 Problem: new sp3 Symptoms: have worsened sp3 Bed/Room Type: Standard sp3 Room Assignment: 222(09/07/24 21:34) Diagnosis - Bilateral cavitary lesions/pneumonia, hemoptysis sp3 Forms: - Medication Reconciliation Form sp3 - SBAR form sp3 - Leadership Thank You Letter sp3 Signatures: Dispatcher [employer] Amanda Irwin RN RN cg Sheldon Coffey RN RN bp Sofya Quan RN RN ap3 Xiao Briones MD MD sp3 Sofya Polk RN al5 Corrections: (The following items were deleted from the chart) 09/07 12:59 12:58 BASIC METABOLIC PANEL+C.LAB.BRZ ordered. EDMS EDMS 12:59 12:58 CBC+H.LAB.BRZ ordered. EDMS EDMS 12:59 12:58 HEPATIC FUNCTION+C.LAB.BRZ ordered. EDMS EDMS 12:59 12:58 MAGNESIUM+C.LAB.BRZ ordered. EDMS EDMS 12:59 12:58 PROBNP+C.LAB.BRZ ordered. EDMS EDMS 12:59 12:58 PROTIME (+INR)+COAG.LAB.BRZ ordered. EDMS EDMS 12:59 12:58 Troponin High Sensitivity+C.LAB.BRZ ordered. EDMS EDMS 12:59 12:59 Chest For PE Angio+CT.RAD.BRZ ordered. EDMS EDMS 21:34 14:28 sp3 cg
[2024-09-07] MEDS ORDERED: VANCOMYCIN 1 GM/VIAL ONE (15:06)
[2024-09-07] MEDS ORDERED: NA CHLORIDE 0.9% 100 ML ONE (15:06)
[2024-09-07] MEDS ORDERED: NA CHLORIDE 0.9% 250 ML ONE (15:06)
[2024-09-07] MEDS ORDERED: PIPERACIL/TAZO 3.375 GM VIAL IV ONE (15:07)
--- NOTE | 2024-09-07 15:19 | P.HP ---
Certification for Inpatient Patient admitted to: Inpatient With expected LOS: >2 Midnights Practitioner: I am a practitioner with admitting privileges, knowledge of patient current condition, hospital course, and medical plan of care. Services: Services provided to patient in accordance with Admission requirements found in Title 42 Section 412.3 of the Code of Federal Regulations Patient History Date of Service: 09/07/24 Primary Care Provider: Mateo Reason for admission: Hemoptysis, Pneumonia History of Present Illness: 79yo F, PMH: HTN, hypothyroidism, GERD Presents to the ED after an episode of hemoptysis she reports having a lingering cough since . She initially thought this was due to allergies but it persisted all this time. She was given a steroid injection early on in the course without any improvement. She did some self research and thought this may be secondary to reflux. She was seen by ENT, Dr. Graham about 5 weeks ago and diagnosed with reflux. She reports an allergic reaction to PPI, and has been on Pepcid since then with not much change. She reports 2 nights ago she started feeling some chest discomfort, pointing to her right side of her chest, rib right sternal border. She denies any fevers. This discomfort resolved and she went to bed, and the following morning (yesterday), she reports feeling unwell and had some of that discomfort again. She is unable to elaborate on any further specifics, she stated she did not feel well. Today she she felt like she had to cough. She reports coughing her "usual cough", nothing particularly forceful at this time, but she felt like she had something in her throat that she needed to cough up. She was able to cough up some "tiara blood". She reports no particular nosebleed recently, but after she coughed up some blood she blew her nose and had 1 or 2 small little specks of blood. She denies having a nosebleed. The right-sided chest discomfort 2 days ago, along with the overall not feeling well yesterday, and the hemoptysis today is what concerned her and led to her coming to the ER. In the ED, blood work was rather unremarkable, no evidence of SIRS/sepsis at this time, and CT chest noted irregular cavitary lesions concerning for an atypical pneumonia as well as mild mediastinal and hilar lymphadenopathy. ED physician discussed the case with pulmonology, Dr. Rondon, who recommended admission and starting antibiotic treatment with vancomycin and Zosyn. Allergies No Known Allergies Allergy (Verified 10/29/16 12:45) Home Medications: Aspirin [Aspirin EC 81 MG] 81 mg PO DAILY 07/29/15 Biotin [Nail-Ex] 2,500 mcg PO DAILY 07/29/15 Calcium/Vits D3/C/K2/Minerals [Bone Essentials Capsule] 166.75 mg PO DAILY 07/29/15 Chromium Picolinate 200 mcg PO DAILY 07/29/15 Fish Oil/Borage/Flax/Om3,6,9 1 [[place] 3-6-9 1,200 mg Softgel] 1,200 mg PO DAILY 07/29/15 L.acidoph,Paracasei, B.lactis [Probiotic] 1 each PO DAILY 07/29/15 Levothyroxine [Synthroid*] 25 mcg PO DAILY 07/29/15 Ubidecarenone [Co Q-10] 100 mg PO DAILY 07/29/15 Vit A/Vit C/Vit E/Zinc/Copper [Icaps Areds Formula Dr Tablet] 1 each PO DAILY 07/29/15 carvediloL [Coreg*] 3.125 mg PO [id number] 07/29/15 Ascorbic Acid [Vitamin C*] 500 mg PO DAILY 07/23/16 Cholecalciferol (Vitamin D3) [Vitamin D 1000 Iu Tab*] 1,000 unit PO DAILY 07/23/16 Phytonadione (Vit K1) [Vitamin K] 100 mcg PO DAILY 07/23/16 - Past Medical/Surgical History Diabetic: No -: Hypertension -: Hypothyroidism -: GERD Past Surgical History: Patient denies surgical history - Family History Family History: Reviewed- Non-Contributory - Social History Smoking Status: Former smoker (Quit 50 years ago) Alcohol use: Yes Place of Residence: Home Review of Systems 10-point ROS is otherwise unremarkable Physical Examination - Physical Exam General: Alert, In no apparent distress, Oriented x3 HEENT: EOMI, Sclerae nonicteric Neck: Supple, No LAD Respiratory: Diminished Cardiovascular: Regular rate/rhythm, Edema (Trace bilateral just above ankles) Gastrointestinal: Soft and benign, Non-distended, No tenderness Musculoskeletal: No contractures, No tenderness Integumentary: No rashes, No significant lesion Neurological: Normal speech, Normal strength at 5/5 x4 extr, Normal affect - Studies Laboratory Data (last 24 hrs) 09/07/24 09/07/24 09/07/24 13:23 13:23 13:23 WBC 9.40 Hgb 13.8 Hct 42.0 Plt Count 258 PT 12.6 H INR 1.20 Sodium 137 Potassium 4.2 BUN 18 Creatinine 0.82 Glucose 109 H Magnesium 2.4 Total Bilirubin 0.5 AST 16 ALT 22 Alkaline Phosphatase 100 Assessment and Plan - Advance Directives Does patient have a Living Will: No Does patient have a Durable POA for Healthcare: No Physician Review Additional Text: Problem List Hemoptysis Pneumonia, atypical - cavitary lesions HTN hypothyroidism atrial tachycardia Hemoptysis had episode earlier today, states she was coughing as usual - not forceful, then felt like had something to cough up and it was tiara blood no further episodes since arrival here Pneumonia, atypical - cavitary lesions unclear exact etiology No obviously clear risk factors for TB CT (09/07) noted "extensive irregular nodular lesions, several of which are cavitary, noted in both lungs along with extensive tree-in-bud opacities. This is likely related to endobronchial spread of infection, typically an atypical infection such as mycobacterial species. Neoplasm seems unlikely but not completely ruled out. Septic emboli may also be considered." reports cough which she attributed to allergies and reflux since but not feeling well the last 2-3 days had R sternal chest discomfort with respirations 2 nights ago woke up yesterday "not feeling well" and took awhile to improve blood and sputum cultures ordered AFB sputum stain ordered pulm consulted by ED - recommended vanc/zosyn no evidence of sepsis at this time monitor on telemetry given h/o atrial tachycardia confirm home meds and restart as appropriate - she states she takes carvedilol, flecainide, levothyroxine, Pepcid, among others Code: Full Dispo: Home, 2-3 days Airborne/isolation precautions ordered Time Spent Managing Pts Care (In Minutes): 75
[2024-09-07] MEDS ORDERED: ACETAMINOPHEN 500 MG TAB PO PRN (15:20)
[2024-09-07] MEDS ORDERED: ONDANSETRON 4 MG/2 ML VIAL IV PRN (15:20)
[2024-09-07] MEDS: VANCOMYCIN 1 GM in NA CHLORIDE 0.9% 250 ML IVPB ONE (16:00)
[2024-09-07] MEDS: PIPER TAZO 3.375 GM in NA CHLORIDE 0.9% 100 ML IV SCH (17:00)
[2024-09-07 19:04] VITALS: BMI 18.8
[2024-09-07] MEDS ORDERED: carvediloL 6.25 MG TAB ONE ×2 (20:20→20:32)
[2024-09-07] MEDS: FLECAINIDE 100 MG TAB PO SCH (21:00)
[2024-09-07] MEDS: carvediloL 6.25 MG TAB PO SCH (21:00)
[2024-09-07] MEDS ORDERED: VANCOMYCIN 1.25 GM in NA CHLORIDE 0.9% 250 ML IVPB SCH (21:00)
[2024-09-08 05:16] LABS: Absolute Eosinophils 0.1 K/uL (0-0.5); Absolute Lymphocytes (CBC) 1.2 K/uL (0.7-4.9); Absolute Monocytes 0.6 K/uL (0.1-1.3); Absolute Neutrophil 7.8 K/uL (1.8-8.0); Basophils % 0.2 % (0-1.3); Eosinophils % 0.6 % (0-4.4); Hematocrit 37.7 % (36.0-45.0); Hemoglobin 12.6 g/dL (12.0-15.0); Lymphocytes % 12.8 % (15.3-44.8); MCH 29.7 pg (27.0-35.0); MCHC 33.4 g/dL (32.0-36.0); MCV 88.8 fL (80-100); MPV 9.6 fL (7.6-11.3); Monocytes % 6.1 % (3.3-12.3); Neutrophils % 80.3 % (41.7-73.7); Platelets 229 thou/uL (152-406); RBC Red Blood Cell Count 4.25 M/uL (3.86-4.86); Red Cell Distribution Width 14.3 % (12.1-15.2)
[2024-09-08 05:35] LABS: Albumin 2.9 g/dL (3.4-5.0); Albumin/Globulin Ratio 0.7 (1.1-1.8); Anion Gap 7.9 mEq/L (5.0-15.0); Bilirubin Total 0.6 mg/dL (0.2-1.0); Magnesium 2.3 mg/dL (1.6-2.4); Potassium 3.9 mEq/L (3.5-5.1); Protein, Total 6.9 g/dL (6.4-8.2)
[2024-09-08 09:11] VITALS: O2SAT 98
[2024-09-08] MEDS: LOSARTAN POTASSIUM 50 MG TABLET PO ONE (10:56)
[2024-09-08] MEDS: LEVOTHYROXINE SOD 0.025 MG TAB PO ONE (10:56)
[2024-09-08] MEDS: FAMOTIDINE 20 MG TAB PO ONE (10:56)
--- NOTE | 2024-09-08 13:58 | P.PN ---
Date of Service: 09/08/24 Subjective: 79-year-old female presenting with cough and epigastric pain leading to hemoptysis. Today she states she feels much better after the antibiotic. Denies any pain. No other associated symptoms. She is able to walk around her room. Denies going to any new countries. Review of Systems 10-point ROS is otherwise unremarkable Physical Examination - Physical Exam General: Alert, In no apparent distress, Oriented x3 HEENT: EOMI, Sclerae nonicteric Neck: Supple, No LAD Respiratory: Diminished Cardiovascular: Regular rate/rhythm, Edema (Trace bilateral just above ankles) Gastrointestinal: Soft and benign, Non-distended, No tenderness Musculoskeletal: No contractures, No tenderness Integumentary: No rashes, No significant lesion Neurological: Normal speech, Normal strength at 5/5 x4 extr, Normal affect - Studies Laboratory Data (last 24 hrs) 09/07/24 09/07/24 09/07/24 13:23 13:23 13:23 WBC 9.40 Hgb 13.8 Hct 42.0 Plt Count 258 PT 12.6 H INR 1.20 Sodium 137 Potassium 4.2 BUN 18 Creatinine 0.82 Glucose 109 H Magnesium 2.4 Total Bilirubin 0.5 AST 16 ALT 22 Alkaline Phosphatase 100 Assessment and Plan - Advance Directives Does patient have a Living Will: No Does patient have a Durable POA for Healthcare: No Physician Review Additional Text: Problem List Hemoptysis Pneumonia, atypical - cavitary lesions HTN hypothyroidism atrial tachycardia No new episodes of hemoptysis Blood work otherwise unremarkable currently Awaiting pulmonary recommendations No obviously clear risk factors for TB blood and sputum cultures pending, AFB sputum stain pending no evidence of sepsis at this time monitor on telemetry given h/o atrial tachycardia confirm home meds and restart as appropriate - she states she takes carvedilol, flecainide, levothyroxine, Pepcid, among others Code: Full Dispo: Home, 2-3 days Airborne/isolation precautions ordered Time Spent Managing Pts Care (In Minutes): 75
[2024-09-08] MEDS: COENZYME Q10- 100 MG CAP PO SCH (16:11)
--- NOTE | 2024-09-08 18:54 | P.CNS ---
Date of Consult: 09/08/24 Primary Care Provider: Mateo Chief Complaint: Hemoptysis, Pneumonia History of Present Illness: Patient is 79 years of age her problem started in April presumed to be allergies postnasal drip she took Mucinex over the counter was seen by primary care was given some steroid injections with no relief went to see ENT July 27 was diagnosed with laryngeal reflux treated with PPI patient was intolerant was changed over to famotidine has been complaining of cough since June denies any fever chills admission precipitated by 1 episode of hemoptysis patient has never lost any weight he was doing well Allergies metronidazole Adverse Reaction (Severe, Verified 09/08/24 02:17) Shortness of breath omeprazole Adverse Reaction (Verified 09/08/24 02:17) Shortness of breath Home Medications: Aspirin [Aspirin EC 81 MG] 81 mg PO DAILY 07/29/15 Biotin [Nail-Ex] 2,500 mcg PO DAILY 07/29/15 Calcium/Vits D3/C/K2/Minerals [Bone Essentials Capsule] 166.75 mg PO DAILY 07/29/15 Chromium Picolinate 200 mcg PO DAILY 07/29/15 Fish Oil/Borage/Flax/Om3,6,9 1 [[place] 3-6-9 1,200 mg Softgel] 1,200 mg PO DAILY 07/29/15 L.acidoph,Paracasei, B.lactis [Probiotic] 1 each PO DAILY 07/29/15 Levothyroxine [Synthroid*] 25 mcg PO DAILY 07/29/15 Ubidecarenone [Co Q-10] 100 mg PO BIDWM 07/29/15 Vit A/Vit C/Vit E/Zinc/Copper [Icaps Areds Formula Dr Tablet] 1 each PO DAILY 07/29/15 carvediloL [Coreg*] 12.5 mg PO Q12HR 6AM AND 6PM 07/29/15 Ascorbic Acid [Vitamin C*] 500 mg PO DAILY 07/23/16 Cholecalciferol (Vitamin D3) [Vitamin D 1000 Iu Tab*] 1,000 unit PO DAILY 07/23/16 Phytonadione (Vit K1) [Vitamin K] 100 mcg PO DAILY 07/23/16 Famotidine [Pepcid*] 20 mg PO DAILY 09/08/24 Flecainide [Tambocor*] 50 mg PO BID 09/08/24 Losartan Potassium 25 mg PO DAILY 09/08/24 - Past Medical/Surgical History Diabetic: No -: Hypertension -: Hypothyroidism -: GERD - Social History Alcohol use: Yes Place of Residence: Home Review of Systems 10-point ROS is otherwise unremarkable Physical Examination Temp Pulse Resp BP Pulse Ox 98.7 F 68 16 101/57 L 94 09/08/24 16:00 09/08/24 16:00 09/08/24 16:00 09/08/24 16:00 09/08/24 16:00 General: Alert, Oriented x3 HEENT: Atraumatic Neck: Supple Respiratory: Crackles/rales (Bilateral) Cardiovascular: No edema, Regular rate/rhythm, Normal S1 S2 Gastrointestinal: Normal bowel sounds, Soft and benign - Problems (1) Pneumonia Current Visit: Yes Status: Acute Plan: Patient is 79 years of age started having problems since June complaining of a chronic cough admitted with 1 episode of hemoptysis no recent hemoptysis denies any fever chills patient has bilateral patchy infiltrates most likely she has right middle lobe bronchiectasis I suspect she may have an atypical Mycobacterium infection currently patient is doing well her vital signs are all stable labs unremarkable patient can be discharged home tomorrow on Augmentin for 10 days patient is also on flecainide follow-up with me in 2 weeks with a preclinical chest x-ray May need outpatient bronchoscopy the chest x-ray appearances do not resolve for possibly another high-resolution CT scan to check for bronchiectasis patient is unable to cough up any sputum
[2024-09-08] MEDS ORDERED: FLECAINIDE 100 MG TAB PO SCH (21:00)
[2024-09-08] MEDS: AMOX/K CLAV 500 MG TAB PO SCH (21:56)
[2024-09-09] MEDS ORDERED: VANCOMYCIN 750 MG in NA CHLORIDE 0.9% 150 ML IVPB SCH (04:00)
[2024-09-09 05:49] LABS: Anion Gap 6.1 mEq/L (5.0-15.0); Phosphorus 3.7 mg/dL (2.5-4.9); Potassium 4.1 mEq/L (3.5-5.1)
[2024-09-09] MEDS: LEVOTHYROXINE SOD 0.025 MG TAB PO SCH (06:28)
--- NOTE | 2024-09-09 06:38 | P.PN ---
Subjective Date of Service: 09/09/24 Primary Care Provider: Mateo Chief Complaint: Hemoptysis, Pneumonia Doing better. No more episodes of hemoptysis Review of Systems 10-point ROS is otherwise unremarkable Physical Examination - Vital Signs Temperature: 97.6 F Blood Pressure: 155/77 Pulse: 73 Respirations: 18 Pulse Ox (%): 98 - Physical Exam General: Alert, In no apparent distress HEENT: Atraumatic, Normocephalic Neck: Supple Respiratory: Clear to auscultation bilaterally, Normal air movement Cardiovascular: No edema Capillary refill: <2 Seconds Gastrointestinal: Normal bowel sounds Musculoskeletal: No clubbing Integumentary: No rashes Neurological: Normal gait, Normal speech Lymphatics: No axilla or inguinal lymphadenopathy Assessment And Plan - Plan - Advance Directives Does patient have a Living Will: No Does patient have a Durable POA for Healthcare: No Physician Review Additional Text: Problem List Hemoptysis Pneumonia, atypical - cavitary lesions HTN hypothyroidism atrial tachycardia No new episodes of hemoptysis Blood work otherwise unremarkable currently Appreciate pulmonary recommendation Switch antibiotics to Augmentin Follow-up with outpatient pulmonology for possible bronchoscopy and further imaging to rule out bronchiectasis Unable to produce sputum Code: Full Dispo: Home, 2-3 days Airborne/isolation precautions ordered
--- NOTE | 2024-09-09 08:17 | P.DS ---
Admission Date: 09/07/24 Discharge Date: 09/09/24 Primary Care Provider: Mateo Discharge Condition: GOOD Reason for Admission: Hemoptysis, Pneumonia Hospital Course: 79-year-old female with a past medical of hypertension, hypothyroidism, GERD presented with hemoptysis alongside patchy bilateral infiltrates concerning for atypical mild bacterial infection on imaging. Her aspirin was discontinued and she was started on IV antibiotics alongside hydration. Patient improved rather quickly and was tolerating oral intake. She has not had any more episodes of hemoptysis. Pulmonology was consulted and is switched over to Augmentin with follow-up outpatient for possible bronchoscopy. She may need additional imaging in the future to check for bronchiectasis. She has been unable to produce a sputum sample during her stay. She is tolerating oral intake and able to urinate as well as have bowel movements. Will be discharged home with follow-up with pulmonology, ENT, and primary care Vital Signs/Physical Exam: Temp Pulse Resp BP Pulse Ox 97.6 F 73 18 155/77 H 98 09/09/24 06:38 09/09/24 06:38 09/09/24 06:38 09/09/24 06:38 09/09/24 06:38 General: Alert, In no apparent distress HEENT: Atraumatic, Normocephalic Neck: Supple Respiratory: Clear to auscultation bilaterally, Normal air movement Cardiovascular: No edema, Normal pulses Capillary refill: <2 Seconds Gastrointestinal: Normal bowel sounds Musculoskeletal: No clubbing Integumentary: No rashes Neurological: Normal gait Lymphatics: No axilla or inguinal lymphadenopathy Laboratory Data at Discharge: WBC 9.70 thou/uL (4.3-10.9) 09/08/24 04:37 Hgb 12.6 g/dL (12.0-15.0) D 09/08/24 04:37 Hct 37.7 % (36.0-45.0) 09/08/24 04:37 Plt Count 229 thou/uL (152-406) 09/08/24 04:37 PT 12.6 SECONDS (9.4-12.5) H 09/07/24 13:23 INR 1.20 09/07/24 13:23 Sodium 140 mEq/L (136-145) 09/09/24 05:21 Potassium 4.1 mEq/L (3.5-5.1) 09/09/24 05:21 BUN 12 mg/dL (7-18) 09/09/24 05:21 Creatinine 0.75 mg/dL (0.55-1.02) 09/09/24 05:21 Glucose 86 mg/dL (74-106) 09/09/24 05:21 Phosphorus 3.7 mg/dL (2.5-4.9) 09/09/24 05:21 Magnesium 2.3 mg/dL (1.6-2.4) 09/08/24 04:37 Total Bilirubin 0.6 mg/dL (0.2-1.0) 09/08/24 04:37 AST 11 U/L (15-37) L 09/08/24 04:37 ALT 18 U/L (13-56) 09/08/24 04:37 Alkaline Phosphatase 89 U/L (45-117) 09/08/24 04:37 Home Medications: Aspirin [Aspirin EC 81 MG] 81 mg PO DAILY 07/29/15 Biotin [Nail-Ex] 2,500 mcg PO DAILY 07/29/15 Calcium/Vits D3/C/K2/Minerals [Bone Essentials Capsule] 166.75 mg PO DAILY 07/29/15 Chromium Picolinate 200 mcg PO DAILY 07/29/15 Fish Oil/Borage/Flax/Om3,6,9 1 [[place] 3-6-9 1,200 mg Softgel] 1,200 mg PO DAILY 07/29/15 L.acidoph,Paracasei, B.lactis [Probiotic] 1 each PO DAILY 07/29/15 Levothyroxine [Synthroid*] 25 mcg PO DAILY 07/29/15 Vit A/Vit C/Vit E/Zinc/Copper [Icaps Areds Formula Dr Tablet] 1 each PO DAILY 07/29/15 carvediloL [Coreg*] 12.5 mg PO Q12HR 6AM AND 6PM 07/29/15 Ascorbic Acid [Vitamin C*] 500 mg PO DAILY 07/23/16 Cholecalciferol (Vitamin D3) [Vitamin D 1000 Iu Tab*] 1,000 unit PO DAILY 07/23/16 Phytonadione (Vit K1) [Vitamin K] 100 mcg PO DAILY 07/23/16 Famotidine [Pepcid*] 20 mg PO DAILY 09/08/24 Flecainide [Tambocor*] 50 mg PO BID 09/08/24 Losartan Potassium 25 mg PO DAILY 09/08/24 Amox/Clavulanate [Augmentin 500-125 mg Tab*] 500 mg PO BID 10 Days #20 tab 09/09/24 Flecainide [Tambocor*] 50 mg PO BID tab 09/09/24 Losartan Potassium [Cozaar*] 25 mg PO DAILY 09/09/24 New Medications: Amox/Clavulanate [Augmentin 500-125 mg Tab*] 500 mg PO BID 10 Days #20 tab Diet: Regular Activity: Ad tejal Followup: Slim Rondon MD [ACTIVE - CAN ADMIT] - Zulay Galindo MD [Primary Care Provider] -
[2024-09-09] MEDS: LOSARTAN POTASSIUM 50 MG TABLET PO SCH (08:18)
[2024-09-09] MEDS: FAMOTIDINE 20 MG TAB PO SCH (08:19)
[2024-09-09] MEDS: VITS D3 PO SCH (08:20)
[2024-09-09] MEDS: CALCIUM PO SCH (08:20)
[2024-09-09] MEDS: MINERALS PO SCH (08:20)
[2024-09-09] MEDS: BIOTIN 2500 MCG PO SCH (08:20)
[2024-09-09] MEDS: K2 PO SCH (08:20)
[2024-09-09] MEDS: [UNRECOGNIZED DRUG - OTHER] PO SCH (08:20)
[2024-09-09] MEDS: CHROMIUM PICOLINATE 200 MCG PO SCH (08:20)
[2024-09-09] MEDS ORDERED: levoFLOXacin 250 MG TAB PO SCH (09:00)
[2024-09-09 10:42] VITALS: TEMP 97.6
[2024-09-09 12:18] VITALS: BP 173/81
--- NOTE | 2024-09-11 12:16 | EKG ---
Test Date: 2024-09-07 Test Time: 13:25:03 Molder Hand: CHUCK MEASUREMENT RESULTS: Intervals: Rate: 71 OK: 178 QRSD: 82 QT: 388 QTc: 421 [place]: P: 65 OK: 178 QRS: 23 T: 64 INTERPRETIVE STATEMENTS: Normal sinus rhythm Nonspecific T wave abnormality Abnormal ECG Compared to ECG 01/25/2023 02:05:12 T-wave abnormality now present Electronically Signed On 09-11-24 12:12:15 [employer] by Tanvir Saavedra
== END 2024-09-09 12:20 | disposition home or self-care (01) | DRG 194 ==
LOC: ER 12:27 → ERHOLD 15:19 → 2ND 23:00
PROVIDERS: ADMIT Hospitalist; ATTEND Family Medicine
DX: J18.9 Pneumonia, unspecified organism (principal); I47.19 Other supraventricular tachycardia; R04.2 Hemoptysis; I10 Essential (primary) hypertension; E78.5 Hyperlipidemia, unspecified; E03.9 Hypothyroidism, unspecified; K21.9 Gastro-esophageal reflux disease without esophagitis; R59.1 Generalized enlarged lymph nodes; Z88.8 Allergy status to other drugs, medicaments and biological substances; Z79.82 Long term (current) use of aspirin; Z79.02 Long term (current) use of antithrombotics/antiplatelets; Z79.890 Hormone replacement therapy; Z79.899 Other long term (current) drug therapy; Z87.891 Personal history of nicotine dependence
CPT/HCPCS: 36415; 71275; 80048; 80053; 80076; 83735; 83880; 84100; 84484; 85025; 85610; 87040; 93005; 94760; 96365; 96366; 96367; 99285; J2543; J7050; Q9967

== ENCOUNTER 2024-09-18 12:19 | Emergency (ER) | payer OTHER ==
--- OUTSIDE RECORDS SUMMARY | 2024-09-18 12:23 | XMS REPORT | Continuity of Care Document ---
Author Name Unknown Address [address] [facility] [address] [place] [id number] [facility] [address] [facility] [address] [place] [address] Care Team Providers Care Chief Procurement Officer Name Role Phone Zulay Galindo Attending Clinician Unavailable Kary Anguiano Attending Clinician Unavailable Payers Payer Name Policy Type Policy Number Effective Date Expirati on Date Source [facility] Care Medicare Advantage [id number] 2020 00:00:00 [facility] Care Medicare Advantage [id number] 2020 00:00:00 [facility] Problems Condition Name Condition Details Condition Category Status Onset Date Resolution Date Last Treatment Date Treating Clinician Comments Source Decreased hearing Decreased hearing Problem [facility] [id number] Irregular heart beat Problem [facility] [id number] Hematoma Problem Active Comm on [facility] [id number] Screening for osteoporos is Problem Active [facility] Hypertensi on Hypertensi on Problem Active [facility] Hyperlipop roteinemia Acquired hyperlipop roteinemia Problem Active [facility] 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 Problem Active [facility] Acquired hypothyroi dism Acquired hypothyroi dism Problem Active [facility] Hyperlipid emia Hyperlipid emia Problem Active [facility] [id number] Elevated serum globulin level Problem Active [facility] [id number] 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 [facility] Allergic rhinitis Allergic rhinitis, unspecifie d seasonalit y, unspecifie d trigger Problem Active [facility] [id number] Needs flu shot Problem Active [facility] [id number] Arthritis of left hand Problem Active [facility] [id number] Renal insufficie ncy Problem Active [facility] Vitamin deficiency Encounter for vitamin deficiency screening Problem Active [facility] 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 Problem Active [facility] [id number] Primary osteoarthr itis, left hand Problem Active [facility] [id number] Primary osteoarthr itis, right hand Problem Active [facility] Allergies, Adverse Reactions, Alerts Allergy Name Allergy Type Status Severity Reaction(s) Onset Date Inactive Date Treating Clinician Comments Source loratadi ne / pseudoep hedrine loratadi ne / pseudoep hedrine Active Unknown [facility] Social History Social Habit Start Date Stop Date Quantity Comments Source History of Tobacco Use [facility] Sex Assigned At [facility] Smoking Status Start Date Stop Date Source Never Smoker [facility] Former Smoker 2022-01-21 00:00:00 2022-01-21 00:00:00 [facility] Medications Ordered Medication Name Filled Medication Name Start Date Stop Date Current Medication? Ordering Clinician Indication Dosage Frequency Signature (SIG) Comments Components Source Benzonatate 100 MG Benzonatate 100 MG 2023-07 00:00: 00 No 1{capsu le_as_n eeded} TID Benzonatat e 100 MG SOLU-Medrol SOLU-Medrol 2023-07 00:00: 00 No 125mg [facility] Aspir-Low 81 MG Aspir-Low 81 MG No 1{table t} QD Aspir-Low 81 MG Losartan Potassium 25 MG Losartan Potassium [...] Tyrvaya 0.03 MG/ACT No Tyrvaya 0.03 MG/ACT Amoxicillin -Pot Clavulanate 500-125 MG Amoxicillin -Pot Clavulanate 500-125 MG No 1{table t} BID Amoxicilli n-Pot Clavulanat e 500-125 MG Immunizations Ordered Immunization Name Filled Immunization Name Date Status Comments Source FluAD FluAD 2021-04-03 14:11:00 Completed [facility] FluAD FluAD 2021-04-03 14:11:00 Completed [facility] FluAD FluAD 2020-05-01 10:14:00 Completed [facility] FluAD FluAD 2020-05-01 10:14:00 Completed [facility] FluAD FluAD 2019-03-29 12:37:00 Completed [facility] FluAD FluAD 2019-03-29 12:37:00 Completed [facility] FluAD FluAD 2019-03-29 00:00:00 Completed [facility] FluAD FluAD Unknown Completed [facility] FluAD FluAD Unknown Completed [facility] FluAD FluAD Unknown Completed [facility] FluAD FluAD Unknown [facility]pleted [facility] FluAD FluAD Unknown Completed [facility] FluAD FluAD Unknown Completed [facility] FluAD FluAD Unknown Completed [facility] FluAD FluAD Unknown Completed [facility] FluAD FluAD Unknown Completed [facility] FluAD FluAD Unknown Completed [facility] FluAD FluAD Unknown Completed [facility] FluAD FluAD Unknown Completed [facility] Vital Signs Vital Name Observation Time Observation Value Comments S ource height 2024-09-14 08:40:00 58 [in_i] Commo n [facility] weight 2024-09-14 08:40:00 90 [lb_av] Commo n [facility] bmi 2024-09-14 08:40:00 18.81 kg/m2 Comm on [facility] height 2024-07-04 14:00:00 58 [in_i] Commo n [facility] weight 2024-07-04 14:00:00 98.8 [lb_av] Com [facility] temperature 2024-07-04 14:00:00 97.0 [degF] Com [facility] bmi 2024-07-04 14:00:00 20.65 kg/m2 Comm on [facility] oximetry 2024-07-04 14:00:00 [facility] 14:00:00 16 /min [facility] blood pressure systolic 2024-07-04 14:00:00 142 mm[Hg] [facility] blood pressure diastolic 2024-07-04 14:00:00 66 mm[Hg] [facility] height 2024-05-17 11:20:00 58 [in_i] Commo n [facility] weight 2024-05-17 11:20:00 100 [lb_av] Comm on [facility] temperature 2024-05-17 11:20:00 97.3 [degF] Com [facility] bmi 2024-05-17 11:20:00 20.9 kg/m2 Commo n [facility] oximetry 2024-05-17 11:20:00 97 % Commo n [facility] respiratory rate 2024-05-17 11:20:00 16 /min [facility] blood pressure systolic 2024-05-17 11:20:00 120 mm[Hg] [facility] blood pressure diastolic 2024-05-17 11:20:00 72 mm[Hg] [facility] height 2024-02-15 11:20:00 58 [in_i] Commo n [facility] weight 2024-02-15 11:20:00 100.4 [lb_av] Co mmon [facility] temperature 2024-02-15 11:20:00 97.6 [degF] Com mon [facility] bmi 2024-02-15 11:20:00 20.98 kg/m2 Comm on [facility] oximetry 2024-02-15 11:20:00 97 % Commo n [facility] respiratory rate 2024-02-15 11:20:00 16 /min [facility] blood pressure systolic 2024-02-15 11:20:00 118 mm[Hg] [facility] blood pressure diastolic 2024-02-15 11:20:00 68 mm[Hg] [facility] height 2023-11-16 10:00:00 58 [in_i] Commo n [facility] weight 2023-11-16 10:00:00 101.6 [lb_av] Co mmon [facility] temperature 2023-11-16 10:00:00 97.3 [degF] Com [facility] bmi 2023-11-16 10:00:00 21.23 kg/m2 Comm on [facility] oximetry 2023-11-16 10:00:00 98 % Commo n [facility] respiratory rate 2023-11-16 10:00:00 16 /min Common [facility] blood pressure systolic 2023-11-16 10:00:00 112 mm[Hg] [facility] blood pressure diastolic 2023-11-16 10:00:00 56 mm[Hg] [facility] height 2023-08-16 10:00:00 58 [in_i] Commo n [facility] weight 2023-08-16 10:00:00 102 [lb_av] Comm on [facility] temperature 2023-08-16 10:00:00 97.8 [degF] Com [facility] bmi 2023-08-16 10:00:00 21.32 kg/m2 Comm on [facility] oximetry 2023-08-16 10:00:00 97 % Commo n [facility] respiratory rate 2023-08-16 10:00:00 16 /min [facility] blood pressure systolic 2023-08-16 10:00:00 134 mm[Hg] [facility] blood pressure diastolic 2023-08-16 10:00:00 76 mm[Hg] [facility] height 2023-08-16 11:20:00 58 [in_i] Commo n [facility] weight 2023-08-16 11:20:00 102 [lb_av] Comm on [facility] temperature 2023-08-16 11:20:00 97.8 [degF] Com [facility] bmi 2023-08-16 11:20:00 21.32 kg/m2 Comm on [facility] oximetry 2023-08-16 11:20:00 97 % Commo n [facility] respiratory rate 2023-08-16 11:20:00 16 /min Common [facility] blood pressure systolic 2023-08-16 11:20:00 134 mm[Hg] [facility] blood pressure diastolic 2023-08-16 11:20:00 76 mm[Hg] [facility] height 2023-04-22 09:40:00 58 [in_i] Commo n [facility] weight 2023-04-22 09:40:00 106.8 [lb_av] Co mmon [facility] temperature 2023-04-22 09:40:00 97.0 [degF] Com mon [facility] bmi 2023-04-22 09:40:00 22.32 kg/m2 Comm on [facility] oximetry 2023-04-22 09:40:00 97 % Commo n [facility] respiratory rate 2023-04-22 09:40:00 16 /min [facility] blood pressure systolic 2023-04-22 09:40:00 139 mm[Hg] [facility] blood pressure diastolic 2023-04-22 09:40:00 77 mm[Hg] [facility] height 2023-01-20 09:20:00 58 [in_i] Commo n [facility] weight 2023-01-20 09:20:00 113.4 [lb_av] Co [facility] temperature 2023-01-20 09:20:00 97.0 [degF] Com mon [facility] bmi 2023-01-20 09:20:00 23.7 kg/m2 Commo n [facility] oximetry 2023-01-20 09:20:00 98 % Commo n [facility] respiratory rate 2023-01-20 09:20:00 16 /min Common [facility] blood pressure systolic 2023-01-20 09:20:00 125 mm[Hg] [facility] blood pressure diastolic 2023-01-20 09:20:00 81 mm[Hg] [facility] height 2022-11-25 13:20:00 58 [in_i] Commo n [facility] weight 2022-11-25 13:20:00 114.8 [lb_av] Co on [facility] temperature 2022-11-25 13:20:00 98.4 [degF] Com [facility] bmi 2022-11-25 13:20:00 23.99 kg/m2 Comm on [facility] oximetry 2022-11-25 13:20:00 96 % Commo n [facility] respiratory rate 2022-11-25 13:20:00 16 /min Common [facility] blood pressure systolic 2022-11-25 13:20:00 122 mm[Hg] [facility] blood pressure diastolic 2022-11-25 13:20:00 84 mm[Hg] Common [facility] height 2022-11-25 14:00:00 58 [in_i] Commo n [facility] weight 2022-11-25 14:00:00 114.8 [lb_av] Co [facility] temperature 2022-11-25 14:00:00 98.4 [degF] Com [facility] bmi 2022-11-25 14:00:00 23.99 kg/m2 Comm on [facility] oximetry 2022-11-25 14:00:00 96 % Commo n [facility] respiratory rate 2022-11-25 14:00:00 16 /min Common [facility] blood pressure systolic 2022-11-25 14:00:00 122 mm[Hg] [facility] blood pressure diastolic 2022-11-25 14:00:00 84 mm[Hg] Common [facility] height 2022-02-04 08:40:00 58 [in_i] Commo n [facility] weight 2022-02-04 08:40:00 105 [lb_av] Comm on [facility] bmi 2022-02-04 08:40:00 21.94 kg/m2 Comm on [facility] height 2021-10-15 09:00:00 58 [in_i] Commo n [facility] weight 2021-10-15 09:00:00 104 [lb_av] Comm on [facility] bmi 2021-10-15 09:00:00 21.73 kg/m2 Comm on [facility] height 2021-04-10 09:00:00 58 [in_i] Commo n [facility] weight 2021-04-10 09:00:00 104 [lb_av] Comm on [facility] temperature 2021-04-10 09:00:00 97.4 [degF] Com mon [facility] bmi 2021-04-10 09:00:00 21.73 kg/m2 Comm on [facility] oximetry 2021-04-10 09:00:00 97 % Commo n [facility] respiratory rate 2021-04-10 09:00:00 15 /min [facility] blood pressure systolic 2021-04-10 09:00:00 128 mm[Hg] [facility] blood pressure diastolic 2021-04-10 09:00:00 70 mm[Hg] [facility] Encounters Start Date/Time End Date/Time Encounter Type Admission Type Attending Clinicians Care Facility Care Department Encounter ID Source 2024-02-11 10:49:00 [facility] [id number] [facility] 2023-11-16 09:29:00 Outpatient [facility] Gal[facility] [id number] [facility] 2022-10-01 10:01:00 Outpatient [facility]ul[facility] Galindo [facility] [id number] [facility] 2022-09-09 16:36:00 Outpatient Zulay Galindo [facility] [id number] [facility] 2022-02-02 08:15:00 Outpatient Anguiano, Na [facility] [id number] [facility] 2021-10-13 08:34:01 Outpatient Anguiano, Na [facility] [id number] [facility] 2021-08-13 12:37:36 Outpatient Anguiano, Na [facility] [id number] [facility] 2021-08-13 12:12:37 Outpatient Anguiano, Na [facility] [id number] [facility] 2021-08-13 12:11:40 Outpatient Anguiano, Na [facility] [id number] [facility] 2021-08-13 12:09:23 Outpatient Anguiano, Na [facility] [id number] [facility] 2021-08-13 11:25:00 Outpatient Anguiano, Na [facility] [id number] [facility] 2021-08-13 11:17:12 Outpatient Anguiano, Na [facility] [id number] [facility] 2024-09-14 13:58:59 2024-09-14 13:58:[address] [facility] [id number] Sergei Reed Gunnar 2024-09-14 00:00:00 2024-09-14 00:00:00 (EST. VIDEO) EST VIRTUAL VIDEO VISIT [facility] [id number] [facility] 2024-09-11 00:00:00 2024-09-11 00:00:00 (TEL) [facility] [id number] [facility] 2024-07-04 00:00:00 2024-07-04 00:00:00 (TEL) [facility] [id number] [facility] 2024-07-04 00:00:00 2024-07-04 00:00:00 OFFICE VISIT ESTAB PT LEVEL 4 [facility] [id number] [facility] 2024-05-17 00:00:00 2024-05-17 00:00:00 OFFICE VISIT ESTAB PT LEVEL 4 [facility] [id number] [facility] 2024-02-15 00:00:00 2024-02-15 00:00:00 OFFICE VISIT ESTAB PT LEVEL 4 [facility] [id number] [facility] 2023-11-16 00:00:00 2023-11-16 00:00:00 OFFICE VISIT ESTAB PT LEVEL 4 [facility] [id number] [facility] 2023-08-16 00:00:00 2023-08-16 00:00:00 SUB ANNUAL [facility] VISIT [facility] [id number] [facility] 2023-08-16 00:00:00 2023-08-16 00:00:00 OFFICE VISIT ESTAB PT LEVEL 4 [facility] [id number] [facility] 2023-04-22 00:00:00 2023-04-22 00:00:00 OFFICE VISIT ESTAB PT LEVEL 4 [facility] [id number] [facility] 2023-04-22 00:00:00 2023-04-22 00:00:00 (TEL) [facility] [id number] [facility] 2023-04-22 00:00:00 2023-04-22 00:00:00 (TEL) [facility] [id number] [facility] 2023-01-20 00:00:00 2023-01-20 00:00:00 OFFICE VISIT ESTAB PT LEVEL 4 [facility] [id number] [facility] 2022-12-21 00:00:00 2022-12-21 00:00:00 (TEL) [facility] [id number] [facility] 2022-11-25 00:00:00 2022-11-25 00:00:00 OFFICE VISIT ESTAB PT LEVEL 4 [facility] [id number] [facility] 2022-11-25 00:00:00 2022-11-25 00:00:00 SUB ANNUAL [facility] VISIT [facility] [id number] [facility] 2022-10-01 00:00:00 2022-10-01 00:00:00 (TEL) [facility] [id number] [facility] 2022-02-04 00:00:00 2022-02-04 00:00:00 OFFICE VISIT ESTAB PT LEVEL 4 [facility] [id number] [facility] 2021-10-15 00:00:00 2021-10-15 00:00:00 (TEL) [facility] [id number] [facility] 2021-10-15 00:00:00 2021-10-15 00:00:00 OFFICE VISIT ESTAB PT LEVEL 4 [facility] [id number] [facility] 2021-10-15 00:00:00 2021-10-15 00:00:00 (TEL) [facility] [id number] [facility] 2021-04-10 00:00:00 2021-04-10 00:00:00 OFFICE VISIT ESTAB PT LEVEL 4 [facility] [id number] [facility] 2021-04-03 00:00:00 2021-04-03 00:00:00 (INJ) Injection [facility] [id number] [facility] 2020-09-06 00:00:00 2020-09-06 00:00:00 Outpatient [facility] [id number] [facility] 2020-06-28 00:00:00 2020-06-28 00:00:00 Outpatient [facility] [id number] [facility] 2020-05-01 00:00:00 2020-05-01 00:00:00 Outpatient [facility] [id number] [facility] 2019-12-26 13:00:00 2019-12-26 13:00:[address] [facility] [id number] [facility] 2019-06-27 13:00:00 2019-06-27 13:00:[address] [facility] [id number] [facility] 2019-03-31 05:20:00 2019-03-31 05:20:[address] [facility] [id number] [facility] 2019-03-29 11:00:00 2019-03-29 11:00:[address] [facility] [id number] [facility] 2019-03-28 13:00:00 2019-03-28 13:00:[address] [facility] [id number] [facility] 2018-12-20 13:00:00 2018-12-20 13:00:[address] [facility] [id number] [facility] 2018-09-20 09:30:00 2018-09-20 09:30:[address] [facility] [id number] [facility] 2018-06-20 14:30:00 2018-06-20 14:30:[address] [facility] [id number] [facility] 2018-03-17 14:00:00 2018-03-17 14:00:[address] [facility] [id number] [facility] 2017-12-14 14:15:00 2017-12-14 14:15:[address] [facility] [id number] [facility] Results Test Description Test Time Test Comments Results Result Co mments Source POC, COVID 19 Antigen + Flu by Deliv, COVID 19 Antigen + Flu by TERMINALFOUR
--- NOTE | 2024-09-18 13:49 | RAD REPORT ---
EXAMINATION: US LOWER EXTREMITY VENOUS DOPPLER BILATERAL CLINICAL INDICATION: Female, 79 years old.PAIN TECHNIQUE: Complete bilateral duplex sonography of the lower extremity veins was performed. The exami nation included compression for vein patency, color Doppler imaging and flow augmentation in response to distal compression of the distal external iliac, common femoral, femoral, popliteal, brett pop, tibial and great saphenous veins. [id number]. COMPARISON: 07/05/2017 FINDINGS: Duplex sonography imaging demonstrates all deep examined to be fully compressible with spontaneous, p hasic and augmented flow bilaterally. Mcdonald's cyst on the right measuring 2.2 x 0.7 x 3 cm. IMPRESSION: No evidence of deep venous thrombosis seen in either lower extremity.
[2024-09-18 15:21] LABS: Absolute Eosinophils 0.1 K/uL (0-0.5); Absolute Lymphocytes (CBC) 1.3 K/uL (0.7-4.9); Absolute Monocytes 0.5 K/uL (0.1-1.3); Absolute Neutrophil 8.7 K/uL (1.8-8.0); Basophils % 0.4 % (0-1.3); Eosinophils % 0.7 % (0-4.4); Hematocrit 39.7 % (36.0-45.0); Hemoglobin 13.1 g/dL (12.0-15.0); Lymphocytes % 11.8 % (15.3-44.8); MCH 29.4 pg (27.0-35.0); MCHC 33.1 g/dL (32.0-36.0); MCV 88.8 fL (80-100); MPV 9.2 fL (7.6-11.3); Monocytes % 4.5 % (3.3-12.3); Neutrophils % 82.6 % (41.7-73.7); Platelets 242 thou/uL (152-406); RBC Red Blood Cell Count 4.48 M/uL (3.86-4.86)
[2024-09-18 15:35] LABS: Anion Gap 7.4 mEq/L (5.0-15.0); Potassium 4.4 mEq/L (3.5-5.1)
--- NOTE | 2024-09-18 15:59 | ER ---
Nurse's Notes [facility] Name: Daphne Samuels Age: 79 yrs Sex: Female : 1945 Arrival Date: 09/18/2024 Time: 12:19 Bed 13 Private MD: Diagnosis: Pain in left lower leg;Pain in right lower leg Presentation: 09/18 12:31 Chief complaint: Patient states: Bilateral feet tingling X3 days. Pt states that she cm10 thinks that this was caused by a CT Scan she had done on 09/07/24. Coronavirus screen: Client denies travel out of the [place] in the last 14 days. Ebola Screen: Patient denies travel to an Ebola-affected area in the 21 days before illness onset. Initial Sepsis Screen: Does the patient meet any 2 criteria? No. Patient's initial sepsis screen is negative. Does the patient have a suspected source of infection? No. Patient's initial sepsis screen is negative. Risk Assessment: Do you want to hurt yourself or someone else? Patient reports no desire to harm self or others. Onset of symptoms was September 15, 2024. 12:31 Method Of Arrival: Ambulatory cm10 12:31 Acuity: AYSHA 3 cm10 Triage Assessment: 12:33 General: Appears in no apparent distress. comfortable, Behavior is calm, cooperative, cm10 Smells of. Pain: Denies pain. Neuro: No deficits noted. Level of Consciousness is awake, alert, obeys commands, Oriented to person, place, time, situation, Appropriate for age. Neuro: Reports numbness in right foot and left foot since 3 days. Respiratory: No deficits noted. Airway is patent Respiratory effort is even, unlabored, Respiratory pattern is regular, symmetrical. Historical: - Allergies: 12:30 metronidazole; cm10 12:30 Omeprazole; cm10 - Home Meds: 12:30 aspirin 81 mg Oral capsule [Active]; carvedilol 12.5 mg Oral tablet [Active]; losartan cm10 25 mg Oral tablet [Active]; flecainide 50 mg Oral tablet [Active]; levothyroxine 25 mcg tablet [Active]; famotidine 20 mg Oral tablet [Active]; - PMHx: 12:30 Hypertensive disorder; Hypothyroidism; laryngopharyngeal reflux disease (Macular cm10 degenerativ); Macular degenerative; - PSHx: 12:30 cataract; section; cm10 - Immunization history:: Adult Immunizations up to date. - Infectious Disease History:: Denies. - Social history:: Smoking status: Patient denies any tobacco usage or history of. Screenin:52 [facility] [place] ED Fall Risk Assessment (Adult) History of falling in the last 3 months, ph including since admission No falls in past 3 months (0 pts) Confusion or Disorientation No (0 pts) Intoxicated or Sedated No (0 pts) Impaired Gait No (0 pts) Mobility Assist Device Used No (0 pt) Altered Elimination No (0 pt) Score/Fall Risk Level 0 - 2 = Low Risk Oriented to surroundings, Maintained a safe environment, Used ambulatory aids as needed (educated on \T\ assisted with). Abuse screen: Denies threats or abuse. Denies injuries from another. Nutritional screening: No deficits noted. Tuberculosis screening: No symptoms or risk factors identified. Assessment: 15:00 General: Appears in no apparent distress. comfortable, well groomed, Behavior is calm, ph cooperative, appropriate for age. Pain: Denies pain. Neuro: Level of Consciousness is awake, alert, obeys commands, Oriented to person, place, time, situation. Neuro: Reports numbness in right foot and left foot. Cardiovascular: Capillary refill < 3 seconds in bilateral fingers Patient's skin is warm and dry. Respiratory: Airway is patent Respiratory effort is even, unlabored, Respiratory pattern is regular, symmetrical. Musculoskeletal: Circulation, motion, and sensation intact. Range of motion: intact in all extremities. Vital Signs: 12:31 BP 185 / 93; Pulse 79; Resp 16; Temp 98.1(O); Pulse Ox 99% on R/A; Weight 41.73 kg; cm10 Height 4 ft. 10 in. ; Pain 0/10; 15:00 BP 165 / 78; Pulse 77; Resp 18; Pulse Ox 98% on R/A; ph 16:20 BP 151 / 87; Pulse 73; Resp 18; Temp 97.5; Pulse Ox 99% on R/A; ph 12:31 Body Mass Index 19.23 (41.73 kg, 147.32 cm) cm10 12:31 Pain Scale: Adult cm10 ED Course: 12:22 Patient arrived in ED. im 12:23 Derrek De Jesus DO is Attending Physician. ms3 12:33 Triage completed. cm10 12:34 Arm band placed on right wrist. Patient placed in waiting room. cm10 13:33 Extrem Venous W Compression Marquise US In Process Unspecified. EDWI 14:51 Dana Viveros, RN is Primary Nurse. ph 15:00 Patient has correct armband on for positive identification. Bed in low position. Call ph light in reach. Side rails up X 1. Pulse ox on. NIBP on. Door closed. Noise minimized. Warm blanket given. 15:00 Initial lab(s) drawn, by me, sent to lab. Inserted saline lock: 22 gauge in right ph antecubital area, using aseptic technique. Blood collected. Flushed with 10 mL NS. 16:18 No provider procedures requiring assistance completed. IV discontinued, intact, ph bleeding controlled, No redness/swelling at site. Pressure dressing applied. Administered Medications: No medications were administered Medication: 16:20 VIS not applicable for this client. ph Outcome: 15:59 Discharge ordered by MD. ms3 16:20 Discharged to home ambulatory, with significant other, ph 16:20 Condition: good 16:20 Discharge instructions given to patient, Instructed on discharge instructions, follow up and referral plans. Demonstrated understanding of instructions, follow-up care, 16:21 Patient left the ED. ph Signatures: Dispatcher [employer] [facility] Dana Viveros, RN RN Derrek De Jesus DO DO ms3 Su Ramires Clarissa, RN RN cm10 Corrections: (The following items were deleted from the chart) 12:31 12:30 Home Meds: levothyroxine 25 mcg cap 1 cap once daily; cm10 cm10
--- NOTE | 2024-09-18 15:59 | EDPHYS ---
Physician Documentation [facility] Name: Daphne Samuels Age: 79 yrs Sex: Female : 1945 Arrival Date: 09/18/2024 Time: 12:19 Bed 13 Private MD: ED Physician Derrek De Jesus HPI: 09/18 13:17 This 79 yrs old Female presents to ER via Ambulatory with complaints of Numbness - Feet.ms3 13:17 79-year-old female with past medical history of hypertension, hypothyroidism, laryngeal ms3 reflux disease, macular degeneration presents to the emergency department for tingling of her bilateral feet that began on September 16. Patient states she was diagnosed with pneumonia on September 07. Patient also notes she has been having bilateral posterior calf pain that began 2 nights prior to arrival. Patient states her pain is mild. She denies any alleviating or inciting factors.. Historical: - Allergies: 12:30 metronidazole; cm10 12:30 Omeprazole; cm10 - Home Meds: 12:30 aspirin 81 mg Oral capsule [Active]; carvedilol 12.5 mg Oral tablet [Active]; losartan cm10 25 mg Oral tablet [Active]; flecainide 50 mg Oral tablet [Active]; levothyroxine 25 mcg tablet [Active]; famotidine 20 mg Oral tablet [Active]; - PMHx: 12:30 Hypertensive disorder; Hypothyroidism; laryngopharyngeal reflux disease (Macular cm10 degenerativ); Macular degenerative; - PSHx: 12:30 cataract; section; cm10 - Immunization history:: Adult Immunizations up to date. - Infectious Disease History:: Denies. - Social history:: Smoking status: Patient denies any tobacco usage or history of. ROS: 13:17 Constitutional: Negative for fever, and chills. Cardiovascular: Negative for chest ms3 pain, and palpitations. Respiratory: Negative for shortness of breath, cough, wheezing, and pleuritic chest pain, Abdomen/GI: Negative for abdominal pain, nausea, vomiting, diarrhea, and constipation, 13:17 MS/extremity: Positive for Bilateral posterior calf pain, Exam: 13:17 Constitutional: This is a well developed, well nourished patient who is awake, alert, ms3 and in no acute distress. Cardiovascular: Regular rate and rhythm with a normal S1 and S2. No gallops, murmurs, or rubs. Normal PMI, no JVD. No pulse deficits. Respiratory: Lungs have equal breath sounds bilaterally, clear to auscultation and percussion. No rales, rhonchi or wheezes noted. No increased work of breathing, no retractions or nasal flaring. Abdomen/GI: Soft, non-tender, with normal bowel sounds. No distension or tympany. No guarding or rebound. No evidence of tenderness throughout. Skin: Warm, dry with normal turgor. Normal color with no rashes, no lesions, and no evidence of cellulitis. MS/ Extremity: Pulses equal, no cyanosis. Neurovascular intact. Full, normal range of motion. Vital Signs: 12:31 BP 185 / 93; Pulse 79; Resp 16; Temp 98.1(O); Pulse Ox 99% on R/A; Weight 41.73 kg; cm10 Height 4 ft. 10 in. ; Pain 0/10; 15:00 BP 165 / 78; Pulse 77; Resp 18; Pulse Ox 98% on R/A; ph 16:20 BP 151 / 87; Pulse 73; Resp 18; Temp 97.5; Pulse Ox 99% on R/A; ph 12:31 Body Mass Index 19.23 (41.73 kg, 147.32 cm) cm10 12:31 Pain Scale: Adult cm10 MDM: 12:41 Medical Screening Exam initiated ms3 13:17 Differential diagnosis: metabolic disorder, Peripheral neuropathy vs DVT. ms3 17:11 TNKase (Tenecteplase) Screening: Not Applicable. Data reviewed: vital signs, nurses ms3 notes, lab test result(s), radiologic studies, and as a result, I will discharge patient. Counseling: I had a detailed discussion with the patient and/or guardian regarding the historical points, exam findings, and any diagnostic results supporting the discharge/admit diagnosis, lab results, radiology results, the need for outpatient follow up, to return to the emergency department if symptoms worsen or persist or if there are any questions or concerns that arise at home. Special discussion: I discussed with the patient/guardian in detail that at this point there is no indication for admission to the hospital. It is understood, however, that if the symptoms persist or worsen the patient needs to return immediately for re-evaluation. ED course: Discussed negative DVT ultrasound and labs without significant abnormalities with patient. Patient to follow-up with her primary care physician 2 to 3 days. Patient understands and agrees with plan. All questions were answered. Return precautions discussed to include shortness of breath, chest pain, vomiting, worsening symptoms, or any other concerns. On reevaluation patient is alert and oriented x 4, no apparent distress, nontoxic-appearing, speaking full sentences, ambulatory in the emergency department. Patient denies urinary or bowel incontinence, saddle anesthesia.. 09/18 12:41 Order name: CBC with Diff; Complete Time: 15:43 ms3 09/18 12:41 Order name: BMP; Complete Time: 15:43 ms3 09/18 12:41 Order name: Extrem Venous W Compression Marquise US; Complete Time: 14:01 ms3 Administered Medications: No medications were administered Disposition: 17:13 Chart complete. ms3 Disposition Summary: 09/18/24 15:59 Discharge Ordered Notes: Location: Home ms3 Condition: Stable ms3 Diagnosis - Pain in left lower leg ms3 - Pain in right lower leg ms3 Followup: ms3 - With: Private Physician - When: 2 - 3 days - Reason: Recheck today's complaints Discharge Instructions: - Discharge Summary Sheet ms3 - Musculoskeletal Pain ms3 Forms: - Medication Reconciliation Form ms3 - Antibiotic Education ms3 - Prescription Opioid Use ms3 - Patient Portal Instructions ms3 - Leadership Thank You Letter ms3 Signatures: Dispatcher [employer] [facility] Derrek De Jesus DO DO ms3 Shweta Cherry, RN RN cm10 Corrections: (The following items were deleted from the chart) 12:31 12:30 Home Meds: levothyroxine 25 mcg cap 1 cap once daily; cm10 cm10
[2024-09-18 16:28] VITALS: BP 151/87; TEMP 97.5; O2SAT 99
== END 2024-09-18 16:21 | disposition home or self-care (01) ==
LOC: ER 12:19
DX: M79.662 Pain in left lower leg (principal); M79.661 Pain in right lower leg; R20.2 Paresthesia of skin; Z79.82 Long term (current) use of aspirin
CPT/HCPCS: 36415; 80048; 85025; 93970; 99284

== ENCOUNTER 2024-10-06 17:00 | Emergency (ER) | payer OTHER ==
--- OUTSIDE RECORDS SUMMARY | 2024-10-06 17:03 | XMS REPORT | Continuity of Care Document ---
Author Name Unknown Address [address] [place] [address] [facility] [place] Address [address] [place] [address] Care Team Providers Care Torts Law Professor Name Role Phone Alcon APONTE, Slim Beard Primary Care Physician Zulay Galindo Attending Clinician Unavailable Kary Anguiano Attending Clinician Unavailable Payers Payer Name Policy Type Policy Number Effective Date Expirati on Date Source [facility] Care Medicare Advantage [id number] 2020 00:00:00 [facility] Care Medicare Advantage [id number] 2020 00:00:00 [facility] Problems Condition Name Condition Details Condition Category Status Onset Date Resolution Date Last Treatment Date Treating Clinician Comments Source Decreased hearing Decreased hearing Problem [facility] [id number] Irregular heart beat Problem [facility] [id number] Hematoma Problem Active [facility] [id number] Screening for osteoporos is Problem Active [facility] Hypertensi on Hypertensi on Problem Active [facility] Hyperlipop roteinemia Acquired hyperlipop roteinemia Problem Active [facility] 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 Problem Active [facility] Acquired hypothyroi dism Acquired hypothyroi dism Problem Active [facility] Hyperlipid emia Hyperlipid emia Problem Active [facility] [id number] Elevated serum globulin level Problem Active [facility] [id number] 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 [facility] Allergic rhinitis Allergic rhinitis, unspecifie d seasonalit y, unspecifie d trigger Problem Active [facility] [id number] Needs flu shot Problem Active [facility] [id number] Arthritis of left hand Problem Active [facility] [id number] Renal insufficie ncy Problem Active [facility] Vitamin deficiency Encounter for vitamin deficiency screening Problem Active [facility] 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 Problem Active [facility] [id number] Primary osteoarthr itis, left hand Problem Active [facility] [id number] Primary osteoarthr itis, right hand Problem Active [facility] Allergies, Adverse Reactions, Alerts Allergy Name Allergy Type Status Severity Reaction(s) Onset Date Inactive Date Treating Clinician Comments Source loratadi ne / pseudoep hedrine loratadi ne / pseudoep hedrine Active Unknown [facility] Social History Social Habit Start Date Stop Date Quantity Comments Source History of Tobacco Use [facility] Sex Assigned At [facility] Smoking Status Start Date Stop Date Source Never Smoker [facility] Former Smoker 2022-01-21 00:00:00 2022-01-21 00:00:00 [facility] Medications Ordered Medication Name Filled Medication Name Start Date Stop Date Current Medication? Ordering Clinician Indication Dosage Frequency Signature (SIG) Comments Components Source Benzonatate 100 MG Benzonatate 100 MG 2023-07 00:00: 00 No 1{capsu le_as_n eeded} TID Benzonatat e 100 MG SOLU-Medrol SOLU-Medrol 2023-07 00:00: 00 No 125mg [facility] Aspir-Low 81 MG Aspir-Low 81 MG No [...] Comments Source FluAD FluAD 2021-04-03 14:11:00 Completed [facility] FluAD FluAD 2021-04-03 14:11:00 Completed [facility] FluAD FluAD 2020-05-01 10:14:00 Completed [facility] FluAD FluAD 2020-05-01 10:14:00 Completed [facility] FluAD FluAD 2019-03-29 12:37:00 Completed [facility] FluAD FluAD 2019-03-29 12:37:00 Completed [facility] FluAD FluAD 2019-03-29 00:00:00 Completed [facility] FluAD FluAD Unknown Completed [facility] Flu[facility] FluAD Unknown Completed [facility] FluAD FluAD Unknown Completed [facility] - [facility] FluAD FluAD Unknown Completed [facility] FluAD FluAD Unknown Completed [facility] Flu[facility] FluAD Unknown [facility]pleted [facility] Flu[facility] FluAD Unknown Completed [facility] FluAD FluAD Unknown Completed [facility] FluAD FluAD Unknown Completed [facility] FluAD FluAD Unknown Completed [facility] FluAD FluAD Unknown Completed [facility] FluAD FluAD Unknown Completed [facility] Vital Signs Vital Name Observation Time Observation Value Comments S andrece height 2024-09-14 08:40:00 58 [in_i] [facility] weight 2024-09-14 08:40:00 90 [lb_av] [facility] bmi 2024-09-14 08:40:00 18.81 kg/m2 [facility] height 2024-07-04 14:00:00 58 [in_i] [facility] weight 2024-07-04 14:00:00 98.8 [lb_av] Com [facility] temperature 2024-07-04 14:00:00 97.0 [degF] Com [facility] bmi 2024-07-04 14:00:00 20.65 kg/m2 [facility] oximetry 2024-07-04 14:00:00 [facility] 14:00:00 16 /min [facility] blood pressure systolic 2024-07-04 14:00:00 142 mm[Hg] [facility] blood pressure diastolic 2024-07-04 14:00:00 66 mm[Hg] [facility] height 2024-05-17 11:20:00 58 [in_i] [facility] n [facility] weight 2024-05-17 11:20:00 100 [lb_av] Comm [facility] temperature 2024-05-17 11:20:00 97.3 [degF] Com [facility] bmi 2024-05-17 11:20:00 20.9 kg/m2 [facility] oximetry 2024-05-17 11:20:00 97 % [facility] respiratory rate 2024-05-17 11:20:00 16 /min [facility] blood pressure systolic 2024-05-17 11:20:00 120 mm[Hg] [facility] blood [facility] diastolic 2024-05-17 11:20:00 72 mm[Hg] [facility] height 2024-02-15 11:20:00 58 [in_i] Commo n [facility] weight 2024-02-15 11:20:00 100.4 [lb_av] Co [facility] temperature 2024-02-15 11:20:00 97.6 [degF] Com [facility] bmi 2024-02-15 11:20:00 20.98 kg/m2 [facility] oximetry 2024-02-15 11:20:00 97 % [facility] respiratory rate 2024-02-15 11:20:00 16 /min [facility] blood pressure systolic 2024-02-15 11:20:00 118 mm[Hg] [facility] blood pressure diastolic 2024-02-15 11:20:00 68 mm[Hg] [facility] height 2023-11-16 10:00:00 58 [in_i] [facility] weight 2023-11-16 10:00:00 101.6 [lb_av] Co [facility] temperature 2023-11-16 10:00:00 97.3 [degF] Com [facility] bmi 2023-11-16 10:00:00 21.23 kg/m2 Comm [facility] oximetry 2023-11-16 10:00:00 98 % [facility] respiratory rate 2023-11-16 10:00:00 16 /min [facility] blood pressure systolic 2023-11-16 10:00:00 112 mm[Hg] [facility] blood pressure diastolic 2023-11-16 10:00:00 56 mm[Hg] [facility] height 2023-08-16 10:00:00 58 [in_i] Commo n [facility] weight 2023-08-16 10:00:00 102 [lb_av] Comm [facility] temperature 2023-08-16 10:00:00 97.8 [degF] Com mon [facility] bmi 2023-08-16 10:00:00 21.32 kg/m2 [facility] oximetry 2023-08-16 10:00:00 97 % [facility] respiratory rate 2023-08-16 10:00:00 16 /min [facility] blood pressure systolic 2023-08-16 10:00:00 134 mm[Hg] [facility] blood pressure diastolic 2023-08-16 10:00:00 76 mm[Hg] [facility] height 2023-08-16 11:20:00 58 [in_i] Commo n [facility] weight 2023-08-16 11:20:00 102 [lb_av] [facility] temperature 2023-08-16 11:20:00 97.8 [degF] Com mon [facility] bmi 2023-08-16 11:20:00 21.32 kg/m2 [facility] oximetry 2023-08-16 11:20:00 97 % [facility] respiratory rate 2023-08-16 11:20:00 16 /min [facility] blood pressure systolic 2023-08-16 11:20:00 134 mm[Hg] [facility] blood pressure diastolic 2023-08-16 11:20:00 76 mm[Hg] [facility] height 2023-04-22 09:40:00 58 [in_i] Commo n [facility] weight 2023-04-22 09:40:00 106.8 [lb_av] Co mmon [facility] temperature 2023-04-22 09:40:00 97.0 [degF] Com mon [facility] bmi 2023-04-22 09:40:00 22.32 kg/m2 [facility] oximetry 2023-04-22 09:40:00 97 % [facility] respiratory rate 2023-04-22 09:40:00 16 /min [facility] blood pressure systolic 2023-04-22 09:40:00 139 mm[Hg] [facility] blood pressure diastolic 2023-04-22 09:40:00 77 mm[Hg] [facility] height 2023-01-20 09:20:00 58 [in_i] Commo n [facility] weight 2023-01-20 09:20:00 113.4 [lb_av] Co [facility] temperature 2023-01-20 09:20:00 97.0 [degF] Com mon [facility] bmi 2023-01-20 09:20:00 23.7 kg/m2 Com[facility] oximetry 2023-01-20 09:20:00 98 % [facility] respiratory rate 2023-01-20 09:20:00 16 /min [facility] blood pressure systolic 2023-01-20 09:20:00 125 mm[Hg] [facility] blood pressure diastolic 2023-01-20 09:20:00 81 mm[Hg] Common [facility] height 2022-11-25 13:20:00 58 [in_i] Commo n [facility] weight 2022-11-25 13:20:00 114.8 [lb_av] Co [facility] temperature 2022-11-25 13:20:00 98.4 [degF] Com [facility] bmi 2022-11-25 13:20:00 23.99 kg/m2 Comm [facility] oximetry 2022-11-25 13:20:00 96 % Com[facility] respiratory rate 2022-11-25 13:20:00 16 /min [facility] blood pressure systolic 2022-11-25 13:20:00 122 mm[Hg] Common [facility] blood pressure diastolic 2022-11-25 13:20:00 84 mm[Hg] Common [facility] height 2022-11-25 14:00:00 58 [in_i] Commo n [facility] weight 2022-11-25 14:00:00 114.8 [lb_av] Co [facility] temperature 2022-11-25 14:00:00 98.4 [degF] Com [facility] bmi 2022-11-25 14:00:00 23.99 kg/m2 Comm on [facility] oximetry 2022-11-25 14:00:00 96 % Commo [facility] respiratory rate 2022-11-25 14:00:00 16 /min Common [facility] blood pressure systolic 2022-11-25 14:00:00 122 mm[Hg] [facility] blood pressure diastolic 2022-11-25 14:00:00 84 mm[Hg] Common [facility] height 2022-02-04 08:40:00 58 [in_i] Commo n [facility] weight 2022-02-04 08:40:00 105 [lb_av] Comm on [facility] bmi 2022-02-04 08:40:00 21.94 kg/m2 Comm [facility] height 2021-10-15 09:00:00 58 [in_i] Commo n [facility] weight 2021-10-15 09:00:00 104 [lb_av] Comm on [facility] bmi 2021-10-15 09:00:00 21.73 kg/m2 Comm on [facility] height 2021-04-10 09:00:00 58 [in_i] Commo n [facility] weight 2021-04-10 09:00:00 104 [lb_av] Comm on [facility] temperature 2021-04-10 09:00:00 97.4 [degF] Com mon [facility] bmi 2021-04-10 09:00:00 21.73 kg/m2 [facility] oximetry 2021-04-10 09:00:00 97 % Commo [facility] respiratory rate 2021-04-10 09:00:00 15 /min [facility] blood pressure systolic 2021-04-10 09:00:00 128 mm[Hg] [facility] blood pressure diastolic 2021-04-10 09:00:00 70 mm[Hg] [facility] Height Measured 2024-09-14 14:14:00 49.20 inches Sergei Derek Gunnar Body Temperature 2024-09-14 14:14:00 98.40 degrees Sergei F Gunnar Heart Rate 2024-09-14 14:14:00 79.00 /min Suyapa en F Gunnar Respiratory Rate 2024-09-14 14:14:00 16.00 /min Sergei F Gunnar BP Systolic 2024-09-14 14:14:00 196 mm[Hg] Step hen F Gunnar BP Diastolic 2024-09-14 14:14:00 94 mm[Hg] [facility] Derek Maher Weight Measured 2024-09-14 14:14:00 94.80 pounds Sergei Maher Encounters Start Date/Time End Date/Time Encounter Type Admission Type Attending [facility] Care Department Encounter ID Source 2024-02-11 10:49:00 Outpatient Zulay Galindo [facility] [id number] [facility] 2023-11-16 09:29:00 Outpatient Zulay Galindo [facility] [id number] [facility] 2022-10-01 10:01:00 Outpatient Zulay Galindo [facility] [id number] [facility] 2022-09-09 16:36:00 Outpatient Zulay Galindo [facility] [id number] [facility] 2022-02-02 08:15:00 Outpatient Anguiano, Na [facility] [id number] [facility] 2021-10-13 08:34:01 Outpatient Anguiano, Na [facility] [id number] [facility] 2021-08-13 12:37:36 Outpatient Anguiano, Na [facility] [id number] [facility] 2021-08-13 12:12:37 Outpatient Anguiano, Na [facility] [id number] [facility] 2021-08-13 12:11:40 Outpatient Anguiano, Na [facility] [id number] [facility] 2021-08-13 12:09:23 Outpatient Anguiano, Na [facility] [id number] [facility] 2021-08-13 11:25:00 Outpatient Anguiano, Na [facility] [id number] [facility] 2021-08-13 11:17:12 Outpatient Anguiano, Na [facility] [id number] [facility] 2024-09-14 13:58:59 2024-09-14 13:58:59 Outpatient [facility] [id number] Sergei Maehr 2024-09-14 00:00:00 2024-09-14 00:00:00 (EST. VIDEO) EST VIRTUAL VIDEO VISIT [facility] [id number] [facility] 2024-09-14 00:00:00 2024-09-14 00:00:00 Outpatient Visit [facility] [id number] Sergei Maher 2024-09-11 00:00:00 2024-09-11 00:00:00 (TEL) [facility] [id number] [facility] 2024-07-04 00:00:00 2024-07-04 00:00:00 (TEL) [facility] [id number] [facility] 2024-07-04 00:00:00 2024-07-04 00:00:00 OFFICE VISIT ESTAB PT LEVEL 4 [facility] [id number] [facility] 2024-05-17 00:00:00 2024-05-17 00:00:00 OFFICE VISIT ESTAB PT LEVEL 4 [facility] [id number] [facility] 2024-02-15 00:00:00 2024-02-15 00:00:00 OFFICE VISIT ESTAB PT LEVEL 4 [facility] [id number] [facility] 2023-11-16 00:00:00 2023-11-16 00:00:00 OFFICE VISIT ESTAB PT LEVEL 4 [facility] [id number] [facility] 2023-08-16 00:00:00 2023-08-16 00:00:00 SUB ANNUAL [facility] WELLNESS VISIT [facility] [id number] [facility] 2023-08-16 00:00:00 2023-08-16 00:00:00 OFFICE VISIT ESTAB PT LEVEL 4 [facility] [id number] [facility] 2023-04-22 00:00:00 2023-04-22 00:00:00 OFFICE VISIT ESTAB PT LEVEL 4 [facility] [id number] [facility] 2023-04-22 00:00:00 2023-04-22 00:00:00 (TEL) [facility] [id number] [facility] 2023-04-22 00:00:00 2023-04-22 00:00:00 (TEL) [facility] [id number] [facility] 2023-01-20 00:00:00 2023-01-20 00:00:00 OFFICE VISIT ESTAB PT LEVEL 4 [facility] [id number] [facility] 2022-12-21 00:00:00 2022-12-21 00:00:00 (TEL) [facility] [id number] [facility] 2022-11-25 00:00:00 2022-11-25 00:00:00 OFFICE VISIT ESTAB PT LEVEL 4 [facility] [id number] [facility] 2022-11-25 00:00:00 2022-11-25 00:00:00 SUB ANNUAL [facility] WELLNESS VISIT [facility] [id number] [facility] 2022-10-01 00:00:00 2022-10-01 00:00:00 (TEL) [facility] [id number] [facility] 2022-02-04 00:00:00 2022-02-04 00:00:00 OFFICE VISIT ESTAB PT LEVEL 4 [facility] [id number] [facility] 2021-10-15 00:00:00 2021-10-15 00:00:00 (TEL) [facility] [id number] [facility] 2021-10-15 00:00:00 2021-10-15 00:00:00 OFFICE VISIT ESTAB PT LEVEL 4 [facility] [id number] [facility] 2021-10-15 00:00:00 2021-10-15 00:00:00 (TEL) [facility] [id number] [facility] 2021-04-10 00:00:00 2021-04-10 00:00:00 OFFICE VISIT ESTAB PT LEVEL 4 [facility] [id number] [facility] 2021-04-03 00:00:00 2021-04-03 00:00:00 (INJ) Injection [facility] [id number] [facility] 2020-09-06 00:00:00 2020-09-06 00:00:00 Outpatient [facility] [id number] [facility] 2020-06-28 00:00:00 2020-06-28 00:00:00 Outpatient [facility] [id number] [facility] 2020-05-01 00:00:00 2020-05-01 00:00:00 Outpatient [facility] [id number] [facility] 2019-12-26 13:00:00 2019-12-26 13:00:[address] [facility] [id number] [facility] 2019-06-27 13:00:00 2019-06-27 13:00:00 [facility] [id number] [facility] 2019-03-31 05:20:00 2019-03-31 05:20:[address] [facility] [id number] [facility] 2019-03-29 11:00:00 2019-03-29 11:00:00 [facility] [id number] [facility] 2019-03-28 13:00:00 2019-03-28 13:00:00 [facility] [id number] [facility] 2018-12-20 13:00:00 2018-12-20 13:00:00 [facility] [address] [id number] [facility] 2018-09-20 09:30:00 2018-09-20 09:30:00 [facility] [address] [id number] [facility] 2018-06-20 14:30:00 2018-06-20 14:30:[address] [facility] [address] [facility] [id number] [facility] 2018-03-17 14:00:00 2018-03-17 14:00:[address] [facility] [facility] [id number] [facility] 2017-12-14 14:15:00 2017-12-14 14:15:00 [facility] [id number] [facility] Results Test Description Test Time Test Comments Results Result Co mments Source POC, COVID 19 Antigen + Flu by SofiaPOC, COVID 19 Antigen + Flu by Melva Notes Date/Time Note Provider Source Sergei Maher [facility]
--- NOTE | 2024-10-06 18:30 | RAD REPORT ---
EXAMINATION: TWO VIEW CHEST XR CLINICAL INDICATION: Cough;Congestion TECHNIQUE: 2 views of the chest was performed. COMPARISON: 10/06/2024 FINDINGS: Emphysematous changes are present throughout the lungs. There is moderate opacity in the medial right lung base projecting anteriorly likely pneumonia. The heart is normal in size. No displaced fractures evident. IMPRESSION: Right middle lobe pneumonia superimposed on significant COPD.
[2024-10-06 21:12] LABS: Absolute Lymphocytes (CBC) 1.2 K/uL (0.7-4.9); Absolute Monocytes 0.6 K/uL (0.1-1.3); Basophils % 0.2 % (0-1.3); Eosinophils % 0.4 % (0-4.4); Hematocrit 37.1 % (36.0-45.0); Hemoglobin 12.4 g/dL (12.0-15.0); MCH 29.6 pg (27.0-35.0); MCHC 33.6 g/dL (32.0-36.0); MCV 88.2 fL (80-100); MPV 10.7 fL (7.6-11.3); Monocytes % 6.4 % (3.3-12.3); Platelets 202 thou/uL (152-406); Red Cell Distribution Width 14.5 % (12.1-15.2)
[2024-10-06 21:20] LABS: Anion Gap 9.9 mEq/L (5.0-15.0); Potassium 3.9 mEq/L (3.5-5.1)
[2024-10-06 21:21] LABS: PT Prothrombin Time 12.6 SECONDS (10-13.0); Protime INR 1.11
[2024-10-06 21:31] LABS: ALT/SGPT 17 U/L (13-56); AST/SGOT 13 U/L (15-37); Albumin/Globulin Ratio 0.7 (1.1-1.8); Alkaline Phosphatase 93 U/L (45-117); Bilirubin Total 0.5 mg/dL (0.2-1.0); Globulin 4.2 g/dL (2.3-3.5); Protein, Total 7.2 g/dL (6.4-8.2)
[2024-10-06 21:33] LABS: Bilirubin Direct < 0.2 mg/dL (0-0.2); Bilirubin Indirect, Calculated 0.3 mg/dL (0.2-0.8)
--- NOTE | 2024-10-06 22:10 | ER ---
Nurse's Notes [facility] Name: Daphne Samuels Age: 79 yrs Sex: Female : 1945 Arrival Date: 10/06/2024 Time: 17:00 Bed 20 Private MD: Diagnosis: Pneumonia, unspecified organism Presentation: 10/06 17:50 Chief complaint: Patient states: dx with pneumonia sep 07 , coughed up some blood iw today. Coronavirus screen: Client presents with at least one sign or symptom that may indicate coronavirus-19. Ebola Screen: No symptoms or risks identified at this time. Initial Sepsis Screen: Does the patient meet any 2 criteria? No. Patient's initial sepsis screen is negative. Does the patient have a suspected source of infection? No. Patient's initial sepsis screen is negative. Risk Assessment: Do you want to hurt yourself or someone else? Patient reports no desire to harm self or others. 17:50 Method Of Arrival: Ambulatory iw 17:50 Acuity: AYSHA 3 iw Historical: - Allergies: 17:51 metronidazole; iw 17:51 Omeprazole; iw - PMHx: 17:51 laryngopharyngeal reflux disease (Macular degenerativ); Hypertensive disorder; iw Hypothyroidism; Macular degenerative; - PSHx: 17:51 cataract; section; iw - Immunization history:: Adult Immunizations up to date. - Infectious Disease History:: Denies. - Social history:: Smoking status: Patient denies any tobacco usage or history of. Screenin:00 [facility] ED Fall Risk Assessment (Adult) History of falling in the last 3 months, ay including since admission No falls in past 3 months (0 pts) Confusion or Disorientation No (0 pts) Intoxicated or Sedated No (0 pts) Impaired Gait No (0 pts) Mobility Assist Device Used No (0 pt) Altered Elimination No (0 pt) Score/Fall Risk Level 0 - 2 = Low Risk Oriented to surroundings, Maintained a safe environment, Educated pt \T\ family on fall prevention, incl call for assistance when getting out of bed. Abuse screen: Denies threats or abuse. Nutritional screening: No deficits noted. Tuberculosis screening: No symptoms or risk factors identified. Assessment: 20:00 General: Appears in no apparent distress. comfortable, Behavior is calm, cooperative. ay Pain: Denies pain. Neuro: Level of Consciousness is awake, alert, obeys commands, Oriented to person, place, time, situation, Speech is normal. Cardiovascular: Denies chest pain, nausea, shortness of breath, Capillary refill < 3 seconds. Respiratory: Reports cough that is productive, blood tinged Denies shortness of breath. GI: Abdomen is flat, Patient currently denies nausea. : No signs and/or symptoms were reported regarding the genitourinary system. EENT: No signs and/or symptoms were reported regarding the EENT system. Derm: No signs and/or symptoms reported regarding the dermatologic system. Vital Signs: 17:47 Pulse 78; Resp 18; Pulse Ox 99% ; kb 17:51 BP 172 / 84; Pulse 75; Resp 16; Temp 98.4; Pulse Ox 98% on R/A; iw 20:00 BP 180 / 91; Pulse 80; Resp 16; Temp 98.6; Pulse Ox 96% on R/A; ay 22:30 BP 162 / 86; Pulse 77; Resp 17; Pulse Ox 96% on R/A; ay ED Course: 17:03 Patient arrived in ED. im 17:19 Mary Ellen Colby FNP-C is PHCP. kb 17:19 Rosalba Barnes MD is Attending Physician. kb 17:51 Triage completed. iw 18:21 Chest Pa And Lat (2 Views) XRAY In Process Unspecified. EDMS 20:40 First set of blood cultures drawn by me. oe 20:42 Inserted saline lock: 22 gauge in right forearm, using aseptic technique. Blood oe collected. Flushed with 10 mL NS. 20:50 Sparkle Tan, RN is Primary Nurse. ay 20:51 Second set of blood cultures drawn by me. oe 21:03 Blood Culture Adult (2) Sent. oe 21:03 Lactate w/ 2H reflex if indic. Sent. oe 21:03 Protime (+inr) Sent. oe 21:03 Ptt, Activated Sent. oe 21:04 BMP Sent. oe 21:04 CBC with Diff Sent. oe 21:04 LFT's Sent. oe 22:40 IV discontinued, intact, bleeding controlled, No redness/swelling at site. Pressure ay dressing applied. Administered Medications: 22:47 Drug: LevOfloxacin PO 750 mg PO once; give with food Route: PO; ay 23:14 Follow up: Response: Medication administered at discharge. ay Outcome: 22:10 Discharge ordered by . al 22:40 Discharged to home with significant other, ay 22:40 Condition: stable 22:40 Discharge instructions given to patient, Instructed on discharge instructions, follow up and referral plans. Demonstrated understanding of instructions, follow-up care, medications, Prescriptions given X 1, 23:14 Patient left the ED. ay Signatures: Dispatcher [employer] EDMary Ellen Hernandez, HAND MOLDER AND CASTER-C HAND MOLDER AND CASTER-CkCecilia Everett, RN RN Frederick Garcia Itzel im [place], Awudu, RN BIMAL wade
--- NOTE | 2024-10-06 22:10 | EDPHYS ---
Physician Documentation [facility] [place], [place] Name: Daphne Samuels Age: 79 yrs Sex: Female : 1945 Arrival Date: 10/06/2024 Time: 17:00 Bed 20 Private MD: ED Physician Rosalba Barnes HPI: 10/06 17:43 This 79 yrs old Female presents to ER via Unassigned with complaints of Cough - blood. kb 17:43 Pt is a 79 year old female who presents for coughing up blood. States she had pneumonia kb at the end of August that is still being treated by Dr Rondon. States she coughed up blood when she was diagnosed and it resolved. Dr Rondon told her to call if she coughed up blood again, but the office is closed. . Historical: - Allergies: 17:51 metronidazole; iw 17:51 Omeprazole; iw - PMHx: 17:51 laryngopharyngeal reflux disease (Macular degenerativ); Hypertensive disorder; iw Hypothyroidism; Macular degenerative; - PSHx: 17:51 cataract; section; iw - Immunization history:: Adult Immunizations up to date. - Infectious Disease History:: Denies. - Social history:: Smoking status: Patient denies any tobacco usage or history of. ROS: 17:43 Constitutional: As per HPI kb Exam: 22:56 Constitutional: This is a well developed, well nourished patient who is awake, alert, kb and in no acute distress. Head/Face: Normocephalic, atraumatic. ENT: Moist Mucous membranes Cardiovascular: Regular rate Abdomen/GI: Soft, non-tender. No distention Skin: Warm, dry with normal turgor. Normal color. MS/ Extremity: Pulses equal, no cyanosis. Neurovascular intact. Full, normal range of motion. Neuro: Awake and alert, GCS 15, oriented to person, place, time, and situation. 22:56 Respiratory: the patient does not display signs of respiratory distress, Respirations: normal, Breath sounds: Crackles on the right base, Vital Signs: 17:47 Pulse 78; Resp 18; Pulse Ox 99% ; kb 17:51 BP 172 / 84; Pulse 75; Resp 16; Temp 98.4; Pulse Ox 98% on R/A; iw 20:00 BP 180 / 91; Pulse 80; Resp 16; Temp 98.6; Pulse Ox 96% on R/A; ay 22:30 BP 162 / 86; Pulse 77; Resp 17; Pulse Ox 96% on R/A; ay MDM: 17:19 Medical Screening Exam initiated kb 22:56 Differential Diagnosis: Bronchitis Influenza Upper Respiratory Infection Pneumonia. kb Data reviewed: vital signs, nurses notes. Consideration of Admission/Observation Escalation of care including admission/observation considered. Admission considered. Discussed inpatient versus outpatient treatment with patient. Patient prefers to go home with oral antibiotics and will return for worsening symptoms. Patient states she can breathe just fine so she thinks she can go home today. Patient will call Dr. Alatorre's office on Wednesday for follow-up appointment. Educated on return precautions.. Management of patient was discussed with the following: Service Secretary: Dr. Rondon consulted. Recommends Levaquin 750 mg p.o. daily for 1 week and follow-up outpatient.. Historians other than the Patient: Spouse/Significant Other: . Counseling: I had a detailed discussion with the patient and/or guardian regarding the historical points, exam findings, and any diagnostic results supporting the discharge/admit diagnosis, lab results, radiology results, the need for outpatient follow up, a car park attendant, to return to the emergency department if symptoms worsen or persist or if there are any questions or concerns that arise at home. 10/06 18:11 Order name: CBC with Diff; Complete Time: 21:21 kb 10/06 18:11 Order name: BMP; Complete Time: 21:21 kb 10/06 18:37 Order name: Blood Culture Adult (2) kb 10/06 18:37 Order name: Lactate w/ 2H reflex if indic.; Complete Time: 21:23 kb 10/06 18:37 Order name: Protime (+inr); Complete Time: 21:21 kb 10/06 18:37 Order name: Ptt, Activated; Complete Time: 21:21 kb 10/06 18:37 Order name: LFT's; Complete Time: 21:35 kb 10/06 17:45 Order name: Chest Pa And Lat (2 Views) XRAY; Complete Time: 18:30 kb 10/06 18:11 Order name: IV Start; Complete Time: 21:03 kb 10/06 18:37 Order name: Labs collected and sent; Complete Time: 21:03 kb 10/06 18:37 Order name: O2 Per Protocol; Complete Time: 22:24 kb 10/06 18:37 Order name: O2 Sat Monitoring; Complete Time: :24 kb 10/06 18:37 Order name: Vital Signs; Complete Time: 22:24 kb Administered Medications: 22:47 Drug: LevOfloxacin PO 750 mg PO once; give with food Route: PO; ay 23:14 Follow up: Response: Medication administered at discharge. ay Disposition: 21:01 Co-signature as Attending Physician, Rosalba Barnes MD I reviewed the patient's care gb1 provided by the Advanced Practice Provider and agree with the diagnosis and treatment plan. Disposition Summary: 10/06/24 22:10 Discharge Ordered Notes: Location: Home kb Condition: Stable kb Diagnosis - Pneumonia, unspecified organism kb Followup: kb - With: Emergency Department - When: As needed - Reason: Worsening of condition Followup: kb - With: Private Physician - When: 2 - 3 days - Reason: Recheck today's complaints, Continuance of care, Re-evaluation by your physician Discharge Instructions: - Discharge Summary Sheet kb - Community-Acquired Pneumonia, Adult, [id number] kb Forms: - Medication Reconciliation Form kb - Antibiotic Education kb - Prescription Opioid Use kb - Patient Portal Instructions kb - Leadership Thank You Letter kb Prescriptions: - levofloxacin 750 mg Oral tablet - take 1 tablet ORAL route once daily; 6 tablet; Refills: 0, Product Selection kb Permitted Signatures: Dispatcher [employer] Mary Ellen Harvey, Cecilia Avina, RN RN Rosalba Lomeli MD MD gb1 Sparkle Tan RN RN ay
[2024-10-06] MEDS ORDERED: levoFLOXacin 750 MG TAB ONE (22:32)
[2024-10-06 23:22] VITALS: TEMP 98.6; O2SAT 96
[2024-10-06 23:23] VITALS: BP 162/86
== END 2024-10-06 23:14 | disposition home or self-care (01) ==
LOC: ER 17:00
DX: J18.9 Pneumonia, unspecified organism (principal)
CPT/HCPCS: 36415; 71046; 80048; 80076; 83605; 85025; 85610; 85730; 87040; 99284

== ENCOUNTER 2024-10-07 21:47 | Emergency (ER) | payer OTHER ==
--- OUTSIDE RECORDS SUMMARY | 2024-10-07 21:50 | XMS REPORT | Continuity of Care Document ---
Author Name Unknown Address [address] [facility] [place] [address] [facility] [place] Address [address] [facility] [place] [address] Care Team Providers Care Accounting Generalist Name Role Phone Alcon APONTE, Slim Beard Primary Care Physician Zulay Galindo Attending Clinician Unavailable Kary Anguiano Attending Clinician Unavailable Payers Payer Name Policy Type Policy Number Effective Date Expirati on Date Source [facility] Care Medicare Advantage [id number] 2020 00:00:00 [facility] Care Medicare Advantage [id number] 2020 00:00:00 [facility] Problems Condition Name Condition Details Condition Category Status Onset Date Resolution Date Last Treatment Date Treating Clinician Comments Source Decreased hearing Decreased hearing Problem [facility] [id number] Irregular heart beat Problem [facility] [id number] Hematoma Problem Active Comm on [facility] [id number] Screening for osteoporos is Problem Active [facility] Hypertensi on Hypertensi on Problem Active [facility] Hyperlipop roteinemia Acquired hyperlipop roteinemia Problem Active [facility] 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 Problem Active [facility] Acquired hypothyroi dism Acquired hypothyroi dism Problem Active [facility] Hyperlipid emia Hyperlipid emia Problem Active [facility] [id number] Elevated serum globulin level Problem Active [facility] [id number] 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 [facility] Allergic rhinitis Allergic rhinitis, unspecifie d seasonalit y, unspecifie d trigger Problem Active [facility] [id number] Needs flu shot Problem Active [facility] [id number] Arthritis of left hand Problem Active [facility] 331397080 Renal insufficie ncy Problem Active [facility] Vitamin deficiency Encounter for vitamin deficiency screening Problem Active [facility] 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 Problem Active [facility] [id number] Primary osteoarthr itis, left hand Problem Active [facility] [id number] Primary osteoarthr itis, right hand Problem Active [facility] Allergies, Adverse Reactions, Alerts Allergy Name Allergy Type Status Severity Reaction(s) Onset Date Inactive Date Treating Clinician Comments Source loratadi ne / pseudoep hedrine loratadi ne / pseudoep hedrine Active Unknown [facility] Social History Social Habit Start Date Stop Date Quantity Comments Source History of Tobacco Use [facility] Sex Assigned At [facility] Smoking Status Start Date Stop Date Source Never Smoker [facility] Former Smoker 2022-01-21 00:00:00 2022-01-21 00:00:00 [facility] Medications Ordered Medication Name Filled Medication Name Start Date Stop Date Current Medication? Ordering Clinician Indication Dosage Frequency Signature (SIG) Comments Components Source Benzonatate 100 MG Benzonatate 100 MG 2023-07 00:00: 00 No 1{capsu le_as_n eeded} TID Benzonatat e 100 MG SOLU-Medrol SOLU-Medrol 2023-07 00:00: 00 No 125mg [facility] Aspir-Low 81 MG Aspir-Low 81 MG No [...] Comments Source FluAD FluAD 2021-04-03 14:11:00 Completed [facility] FluAD FluAD 2021-04-03 14:11:00 Completed [facility] FluAD FluAD 2020-05-01 10:14:00 Completed [facility] FluAD FluAD 2020-05-01 10:14:00 Completed [facility] FluAD FluAD 2019-03-29 12:37:00 Completed [facility] FluAD FluAD 2019-03-29 12:37:00 Completed [facility] FluAD FluAD 2019-03-29 00:00:00 Completed [facility] FluAD FluAD Unknown Completed [facility] FluAD FluAD Unknown Completed [facility] FluAD FluAD Unknown Completed [facility] - [facility] FluAD FluAD Unknown Completed [facility] FluAD FluAD Unknown Completed [facility] FluAD FluAD Unknown Completed [facility] FluAD FluAD Unknown Completed [facility] FluAD FluAD Unknown Completed [facility] FluAD FluAD Unknown Completed [facility] FluAD FluAD Unknown Completed [facility] FluAD FluAD Unknown Completed [facility] FluAD FluAD Unknown Completed [facility] Vital Signs Vital Name Observation Time Observation Value Comments S andrece height 2024-09-14 08:40:00 58 [in_i] Commo n [facility] weight 2024-09-14 08:40:00 90 [lb_av] Commo n [facility] bmi 2024-09-14 08:40:00 18.81 kg/m2 Comm on [facility] height 2024-07-04 14:00:00 58 [in_i] Commo n [facility] weight 2024-07-04 14:00:00 98.8 [lb_av] Com [facility] temperature 2024-07-04 14:00:00 97.0 [degF] Com [facility] bmi 2024-07-04 14:00:00 20.65 kg/m2 Comm on [facility] oximetry 2024-07-04 14:00:00 [facility] 20[facility] 14:00:00 16 /min [facility] blood pressure systolic 2024-07-04 14:00:00 142 mm[Hg] [facility] blood pressure diastolic 2024-07-04 14:00:00 66 mm[Hg] [facility] height 2024-05-17 11:20:00 58 [in_i] Commo n [facility] weight 2024-05-17 11:20:00 100 [lb_av] Comm on [facility] temperature 2024-05-17 11:20:00 97.3 [degF] Com [facility] bmi 2024-05-17 11:20:00 20.9 kg/m2 Commo n [facility] oximetry 2024-05-17 11:20:00 97 % Commo n [facility] respiratory rate 2024-05-17 11:20:00 16 /min [facility] blood pressure systolic 2024-05-17 11:20:00 120 mm[Hg] [facility] blood pressure diastolic 2024-05-17 11:20:00 72 mm[Hg] [facility] height 2024-02-15 11:20:00 58 [in_i] Commo n [facility] weight 2024-02-15 11:20:00 100.4 [lb_av] Co [facility] temperature 2024-02-15 11:20:00 97.6 [degF] Com [facility] bmi 2024-02-15 11:20:00 20.98 kg/m2 Comm on [facility] oximetry 2024-02-15 11:20:00 97 % Commo n [facility] respiratory rate 2024-02-15 11:20:00 16 /min [facility] blood pressure systolic 2024-02-15 11:20:00 118 mm[Hg] [facility] blood pressure diastolic 2024-02-15 11:20:00 68 mm[Hg] [facility] height 2023-11-16 10:00:00 58 [in_i] Commo n [facility] weight 2023-11-16 10:00:00 101.6 [lb_av] Co [facility] temperature 2023-11-16 10:00:00 97.3 [degF] Com [facility] bmi 2023-11-16 10:00:00 21.23 kg/m2 Comm on [facility] oximetry 2023-11-16 10:00:00 98 % Commo n [facility] respiratory rate 2023-11-16 10:00:00 16 /min Common [facility] blood pressure systolic 2023-11-16 10:00:00 112 mm[Hg] Common [facility] blood pressure diastolic 2023-11-16 10:00:00 56 mm[Hg] [facility] height 2023-08-16 10:00:00 58 [in_i] Commo n [facility] weight 2023-08-16 10:00:00 102 [lb_av] Comm on [facility] temperature 2023-08-16 10:00:00 97.8 [degF] Com mon [facility] bmi 2023-08-16 10:00:00 21.32 kg/m2 Comm on [facility] oximetry 2023-08-16 10:00:00 97 % Commo n [facility] respiratory rate 2023-08-16 10:00:00 16 /min [facility] blood pressure systolic 2023-08-16 10:00:00 134 mm[Hg] Common Spiri [facility] blood pressure diastolic 2023-08-16 10:00:00 76 mm[Hg] [facility] height 2023-08-16 11:20:00 58 [in_i] Commo n [facility] weight 2023-08-16 11:20:00 102 [lb_av] Comm on [facility] temperature 2023-08-16 11:20:00 97.8 [degF] Com mon [facility] bmi 2023-08-16 11:20:00 21.32 kg/m2 Comm on [facility] oximetry 2023-08-16 11:20:00 97 % Commo n [facility] respiratory rate 2023-08-16 11:20:00 16 /min Common [facility] blood pressure systolic 2023-08-16 11:20:00 134 mm[Hg] [facility] blood pressure diastolic 2023-08-16 11:20:00 76 mm[Hg] [facility] height 2023-04-22 09:40:00 58 [in_i] Commo n [facility] weight 2023-04-22 09:40:00 106.8 [lb_av] Co mmon [facility] temperature 2023-04-22 09:40:00 97.0 [degF] Com mon [facility] bmi 2023-04-22 09:40:00 22.32 kg/m2 Comm on [facility] oximetry 2023-04-22 09:40:00 97 % Commo n [facility] respiratory rate 2023-04-22 09:40:00 16 /min [facility] blood pressure systolic 2023-04-22 09:40:00 139 mm[Hg] [facility] blood pressure diastolic 2023-04-22 09:40:00 77 mm[Hg] [facility] height 2023-01-20 09:20:00 58 [in_i] Commo n [facility] weight 2023-01-20 09:20:00 113.4 [lb_av] Co mmon [facility] temperature 2023-01-20 09:20:00 97.0 [degF] Com mon [facility] bmi 2023-01-20 09:20:00 23.7 kg/m2 Commo n [facility] oximetry 2023-01-20 09:20:00 98 % Commo n [facility] respiratory rate 2023-01-20 09:20:00 16 /min [facility] blood pressure systolic 2023-01-20 09:20:00 125 mm[Hg] [facility] blood pressure diastolic 2023-01-20 09:20:00 81 mm[Hg] Common Sp[facility] height 2022-11-25 13:20:00 58 [in_i] Commo n [facility] weight 2022-11-25 13:20:00 114.8 [lb_av] Co [facility] temperature 2022-11-25 13:20:00 98.4 [degF] Com [facility] bmi 2022-11-25 13:20:00 23.99 kg/m2 Comm on [facility] oximetry 2022-11-25 13:20:00 96 % Commo n [facility] respiratory rate 2022-11-25 13:20:00 16 /min Common [facility] blood pressure systolic 2022-11-25 13:20:00 122 mm[Hg] Common [facility] blood pressure diastolic 2022-11-25 13:20:00 84 mm[Hg] Common [facility] height 2022-11-25 14:00:00 58 [in_i] Commo n [facility] weight 2022-11-25 14:00:00 114.8 [lb_av] Co [facility] temperature 2022-11-25 14:00:00 98.4 [degF] Com [facility] bmi 2022-11-25 14:00:00 23.99 kg/m2 Comm on [facility] oximetry 2022-11-25 14:00:00 96 % Commo n [facility] respiratory rate 2022-11-25 14:00:00 16 /min Common [facility] blood pressure systolic 2022-11-25 14:00:00 122 mm[Hg] [facility] blood pressure diastolic 2022-11-25 14:00:00 84 mm[Hg] Common [facility] height 2022-02-04 08:40:00 58 [in_i] Commo n [facility] weight 2022-02-04 08:40:00 105 [lb_av] Comm on [facility] bmi 2022-02-04 08:40:00 21.94 kg/m2 Comm on [facility] height 2021-10-15 09:00:00 58 [in_i] Commo n [facility] weight 2021-10-15 09:00:00 104 [lb_av] Comm on [facility] bmi 2021-10-15 09:00:00 21.73 kg/m2 Comm on [facility] height 2021-04-10 09:00:00 58 [in_i] Commo n [facility] weight 2021-04-10 09:00:00 104 [lb_av] Comm on [facility] temperature 2021-04-10 09:00:00 97.4 [degF] Com mon [facility] bmi 2021-04-10 09:00:00 21.73 kg/m2 Comm on [facility] oximetry 2021-04-10 09:00:00 97 % Commo n [facility] respiratory rate 2021-04-10 09:00:00 15 /min [facility] blood pressure systolic 2021-04-10 09:00:00 128 mm[Hg] [facility] blood pressure diastolic 2021-04-10 09:00:00 70 mm[Hg] [facility] Height Measured 2024-09-14 14:14:00 49.20 inches Sergei [...] End Date/Time Encounter Type Admission Type Attending [facility] Facility Care Department Encounter ID Source 2024-02-11 10:49:00 Outpatient Zulay Galindo [facility] [id number] [facility] 2023-11-16 09:29:00 Outpatient Zulay Galindo [facility] [id number] [facility] 2022-10-01 10:01:00 Outpatient Zulay Galindo [facility] [id number] [facility] 2022-09-09 16:36:00 Outpatient Zulay Galindo [facility] [id number] [facility] 2022-02-02 08:15:00 Outpatient Anguiano, Na [facility] [id number] [facility] 2021-10-13 08:34:01 Outpatient Anguiano, Na [facility] [id number] [facility] 2021-08-13 12:37:36 Outpatient Anguiano, Na [facility] [id number] [facility] 2021-08-13 12:12:37 Outpatient Anguiano, Na [facility] [id number] [facility] 2021-08-13 12:11:40 Outpatient Anguiano, Na [facility] [id number] [facility] 2021-08-13 12:09:23 Outpatient Anguiano, Na [facility] [id number] [facility] 2021-08-13 11:25:00 Outpatient Anguiano, Na [facility] [id number] [facility] 2021-08-13 11:17:12 Outpatient Anguiano, Na [facility] [id number] [facility] 2024-09-14 13:58:59 2024-09-14 13:58:[address] [facility] [id number] Sergei Maher 2024-09-14 00:00:00 2024-09-14 00:00:00 (EST. VIDEO) EST VIRTUAL VIDEO VISIT [facility]LMLC ST[facility]C [id number] [facility] 2024-09-14 00:00:00 2024-09-14 00:00:00 Outpatient Visit [facility] [id number] Sergei Maher 2024-09-11 00:00:00 2024-09-11 00:00:00 (TEL) STLMLC ST[facility] [id number] [facility] 2024-07-04 00:00:00 2024-07-04 00:00:00 (TEL) [facility]MLC [facility] [id number] [facility] 2024-07-04 00:00:00 2024-07-04 00:00:00 OFFICE VISIT ESTAB PT LEVEL 4 [facility] ST[facility] [id number] [facility] 2024-05-17 00:00:00 2024-05-17 00:00:00 OFFICE VISIT ESTAB PT LEVEL 4 [facility] [id number] [facility] 2024-02-15 00:00:00 2024-02-15 00:00:00 OFFICE VISIT ESTAB PT LEVEL 4 [facility] [id number] [facility] 2023-11-16 00:00:00 2023-11-16 00:00:00 OFFICE VISIT ESTAB PT LEVEL 4 [facility] [id number] [facility] 2023-08-16 00:00:00 2023-08-16 00:00:00 SUB ANNUAL [facility] VISIT STL[facility] STL[facility]C [id number] [facility] 2023-08-16 00:00:00 2023-08-16 00:00:00 OFFICE VISIT ESTAB PT LEVEL 4 [facility] ST[facility] [id number] [facility] 2023-04-22 00:00:00 2023-04-22 00:00:00 OFFICE VISIT ESTAB PT LEVEL 4 [facility] [id number] [facility] 2023-04-22 00:00:00 2023-04-22 00:00:00 (TEL) STLMLC ST[facility] [id number] [facility] 2023-04-22 00:00:00 2023-04-22 00:00:00 (TEL) [facility] [id number] [facility] 2023-01-20 00:00:00 2023-01-20 00:00:00 OFFICE VISIT ESTAB PT LEVEL 4 [facility] [id number] [facility] 2022-12-21 00:00:00 2022-12-21 00:00:00 (TEL) STLMLC [facility] [id number] [facility] 2022-11-25 00:00:00 2022-11-25 00:00:00 OFFICE VISIT ESTAB PT LEVEL 4 [facility] [id number] [facility] 2022-11-25 00:00:00 2022-11-25 00:00:00 SUB ANNUAL [facility]LL[facility] VISIT [facility] ST[facility]C [id number] [facility] 2022-10-01 00:00:00 2022-10-01 00:00:00 (TEL) [facility]LMLC ST[facility] [id number] [facility] 2022-02-04 00:00:00 2022-02-04 00:00:00 OFFICE VISIT ESTAB PT LEVEL 4 [facility] [id number] [facility] 2021-10-15 00:00:00 2021-10-15 00:00:00 (TEL) [facility] [id number] [facility] 2021-10-15 00:00:00 2021-10-15 00:00:00 OFFICE VISIT ESTAB PT LEVEL 4 [facility] [id number] [facility] 2021-10-15 00:00:00 2021-10-15 00:00:00 (TEL) [facility]LMLC [facility] [id number] [facility] 2021-04-10 00:00:00 2021-04-10 00:00:00 OFFICE VISIT ESTAB PT LEVEL 4 [facility] [id number] [facility] 2021-04-03 00:00:00 2021-04-03 00:00:00 (INJ) Injection [facility] [id number] [facility] 2020-09-06 00:00:00 2020-09-06 00:00:00 Outpatient [facility] [id number] [facility] 2020-06-28 00:00:00 2020-06-28 00:00:00 Outpatient [facility] [id number] [facility] 2020-05-01 00:00:00 2020-05-01 00:00:00 Outpatient [facility] [id number] [facility] 2019-12-26 13:00:00 2019-12-26 13:00:[address] [facility] [facility] [employer] [id number] [facility] 2019-06-27 13:00:00 2019-06-27 13:00:00 [facility] [id number] [facility] 2019-03-31 05:20:00 2019-03-31 05:20:[address] [facility] [id number] [facility] 2019-03-29 11:00:00 2019-03-29 11:00:00 [facility] [id number] [facility] 2019-03-28 13:00:00 2019-03-28 13:00:00 [facility] [id number] [facility] 2018-12-20 13:00:00 2018-12-20 13:00:00 Outpatient [facility] [id number] [facility] 2018-09-20 09:30:00 2018-09-20 09:30:00 Outpatient [facility] [id number] [facility] 2018-06-20 14:30:00 2018-06-20 14:30:00 Outpatient [facility] [id number] [facility] 2018-03-17 14:00:00 2018-03-17 14:00:00 Outpatient [facility] [id number] [facility] 2017-12-14 14:15:00 2017-12-14 14:15:00 Outpatient [facility] [id number] [facility] Results Test Description Test Time Test Comments Results Result Co mments Source LIPID PANEL WITH REFLEX TO DIRECT [id number] 00:00:00* Test Item Value Reference Range Interpretation Comme nts ALBUMIN (test code = 1751-7) 3.6 g/dL See_Comment N [Automated [employer]] The system which generated this result transmitted reference range: 3.6-5.1 g/dL. The reference range was not used to interpret this result as normal/abnormal. ALBUMIN/GLOBULIN RATIO (test code = 1759-0) 1.2 (calc) See_Comment N [Automated message] The system which generated this result transmitted reference range: 1.0-2.5 (calc). The reference range was not used to interpret this result as normal/abnormal. ALKALINE PHOSPHATASE (test code = 6768-6) 79 U/L See_Comment N [Automated message] The system which generated this result transmitted reference range: 37-153 U/L. The reference range was not used to interpret this result as normal/abnormal. ALT (test code = 1742-6) 8 U/L See_Comment N [Automated [employer]] The system which generated this result transmitted reference range: 6-29 U/L. The reference range was not used to interpret this result as normal/abnormal. AST (test code = 1920-8) 12 U/L See_Comment N [Automated messa ge] The system which generated this result transmitted reference range: 10-35 U/L. The reference range was not used to interpret this result as normal/abnormal. BILIRUBIN, TOTAL (test code = 1975-2) 0.6 mg/dL See_Comment N [Automated messa ge] The system which generated this result transmitted reference range: 0.2-1.2 mg/dL. The reference range was not used to interpret this result as normal/abnormal. BUN/CREATININE RATIO (test code = 3097-3) SEE NOTE: (calc) See_Comment [Automated message] The system which generated this result transmitted reference range: 6-22 (calc). The reference range was not used to interpret this result as normal/abnormal. CALCIUM (test code = 81597-5) 9.6 mg/dL See_Comment N [Automated messa ge] The system which generated this result transmitted reference range: 8.6-10.4 mg/dL. The reference range was not used to interpret this result as normal/abnormal. CARBON DIOXIDE (test code = 8-9) 31 mmol/L See_Comment N [Automated messa ge] The system which generated this result transmitted reference range: 20-32 mmol/L. The reference range was not used to interpret this result as normal/abnormal. CHLORIDE (test code = 2075-0) 103 mmol/L See_Comment N [Automated messa ge] The system which generated this result transmitted reference range: 98-110 mmol/L. The reference range was not used to interpret this result as normal/abnormal. CREATININE (test code = 2160-0) 0.69 mg/dL See_Comment N [Automated messa ge] The system which generated this result transmitted reference range: 0.60-1.00 mg/dL. The reference range was not used to interpret this result as normal/abnormal. GLOBULIN (test code = 82010-4) 3.1 g/dL (calc) See_Comment N [Automated message] The system which generated this result transmitted reference range: 1.9-3.7 g/dL (calc). The reference range was not used to interpret this result as normal/abnormal. GLUCOSE (test code = 2345-7) 82 mg/dL See_Comment N [Automated [employer] [facility]] The system which generated this result transmitted reference range: 65-99 mg/dL. The reference range was not used to interpret this result as normal/abnormal. POTASSIUM (test code = 2823-3) 4.5 mmol/L See_Comment N [Automated [employer]] The system which generated this result transmitted reference range: 3.5-5.3 mmol/L. The reference range was not used to interpret this result as normal/abnormal. PROTEIN, TOTAL (test code = 2885-2) 6.7 g/dL See_Comment N [Automated [employer]] The system which generated this result transmitted reference range: 6.1-8.1 g/dL. The reference range was not used to interpret this result as normal/abnormal. SODIUM (test code = 2951-2) 139 mmol/L See_Comment N [Automated [employer]] The system which generated this result transmitted reference range: 135-146 mmol/L. The reference range was not used to interpret this result as normal/abnormal. UREA NITROGEN (BUN) (test code = 3094-0) 17 mg/dL See_Comment N [Automated message] The system which generated this result transmitted reference range: 7-25 mg/dL. The reference range was not used to interpret this result as normal/abnormal. CHOL/HDLC RATIO (test code = 9830-1) 3.7 (calc) See_Comment N [Automated [employer]] The system which generated this result transmitted reference range: <5.0 (calc). The reference range was not used to interpret this result as normal/abnormal. CHOLESTEROL, TOTAL (test code = 2093-3) 168 mg/dL See_Comment N [Automated message] The system which generated this result transmitted reference range: <200 mg/dL. The reference range was not used to interpret this result as normal/abnormal. HDL CHOLESTEROL (test code = 2085-9) 46 mg/dL See_Comment L [Automated [employer]] The system which generated this result transmitted reference range: > OR = 50 mg/dL. The reference range was not used to interpret this result as normal/abnormal. LDL-CHOLESTEROL (test code = 72514-3) 106 mg/dL (calc) H TRIGLYCERIDES (test code = 2571-8) 71 mg/dL See_Comment N [Automated messa ge] The system which generated this result transmitted reference range: <150 mg/dL. The reference range was not used to interpret this result as normal/abnormal. POC, COVID 19 Antigen + Flu by SofiaPOC, COVID 19 Antigen + Flu by Melva Notes Date/Time Note Provider Source Sergei Magana [facility]
--- NOTE | 2024-10-07 22:22 | ER ---
Nurse's Notes [facility] Name: Daphne Samuels Age: 79 yrs Sex: Female : 1945 Arrival Date: 10/07/2024 Time: 21:47 Bed IW1 Private MD: Diagnosis: Adverse reaction to levaquin;Pneumonia, unspecified organism Presentation: 10/07 21:56 Chief complaint: Patient states: started levaquin yesterday for pneumonia and is me1 concerned because bilateral feet are tingling. Denies pain. Coronavirus screen: Vaccine status: Patient reports receiving the 2nd dose of the covid vaccine. Ebola Screen: No symptoms or risks identified at this time. Initial Sepsis Screen: Does the patient meet any 2 criteria? No. Patient's initial sepsis screen is negative. Does the patient have a suspected source of infection? No. Patient's initial sepsis screen is negative. Risk Assessment: Do you want to hurt yourself or someone else? Patient reports no desire to harm self or others. Onset of symptoms was October 07, 2024 at 20:30. 21:56 Method Of Arrival: Ambulatory [facility] 21:56 Acuity: AYSHA 4 me1 Triage Assessment: 21:58 General: Appears in no apparent distress. well groomed, well developed, well nourished, me1 Behavior is calm, cooperative, appropriate for age. Pain: Denies pain. EENT: No signs and/or symptoms were reported regarding the EENT system. Neuro: Level of Consciousness is awake, alert, obeys commands, Oriented to person, place, time, situation, Appropriate for age. Cardiovascular: Patient's skin is warm and dry. Respiratory: Reports cough that is non-productive, Airway is patent Respiratory effort is even, unlabored, Respiratory pattern is regular, symmetrical. GI: No signs and/or symptoms were reported involving the gastrointestinal system. : No signs and/or symptoms were reported regarding the genitourinary system. Derm: Skin is intact, is healthy with good turgor, Skin is pink, warm \T\ dry. Musculoskeletal: Reports tingling in both feet that started tonight about 20:30. Historical: - Allergies: 21:58 metronidazole; me1 21:58 Omeprazole; me1 - PMHx: 21:58 Hypertensive disorder; Hypothyroidism; Macular degenerative; me1 - PSHx: 21:58 cataract; section; me1 - Immunization history:: Adult Immunizations up to date. - Infectious Disease History:: Denies. - Social history:: Smoking status: Patient/guardian denies using tobacco, but has a distant history of tobacco abuse. Screenin:45 [facility] ED Fall Risk Assessment (Adult) History of falling in the last 3 months, me1 including since admission No falls in past 3 months (0 pts) Confusion or Disorientation No (0 pts) Intoxicated or Sedated No (0 pts) Impaired Gait No (0 pts) Mobility Assist Device Used No (0 pt) Altered Elimination No (0 pt) Score/Fall Risk Level 0 - 2 = Low Risk Maintained a safe environment, Provided non-skid footwear, Hourly rounding (assess needs \T\ fall precautionary measures) done. Abuse screen: Denies threats or abuse. Nutritional screening: No deficits noted. Tuberculosis screening: No symptoms or risk factors identified. Assessment: 22:45 General: See triage assessment. me1 Vital Signs: 21:56 BP 160 / 87; Pulse 75; Resp 18; Temp 98; Pulse Ox 98% ; Weight 40.82 kg; Height 4 ft. me1 10 in. ; Pain 0/10; 22:47 BP 154 / 82; Pulse 72; Resp 17; Temp 98.2; Pulse Ox 99% ; me1 21:56 Body Mass Index 18.81 (40.82 kg, 147.32 cm) me1 21:56 Pain Scale: Adult hi1 ED Course: 21:49 Patient arrived in ED. [id number] 21:58 Triage completed. me1 21:58 Arm band placed on Patient placed in an internal wait recliner. me1 22:02 Meliza Colmenares, BIMAL is Primary Nurse. me1 22:03 Giorgio Boyle MD is Attending Physician. sp4 22:05 Mary Ellen Colby FNP-C [facility]. kb 22:45 Patient has correct armband on for positive identification. Provided Education on: POC. me1 Verbalized understanding.. 22:45 No provider procedures requiring assistance completed. Patient did not have IV access me1 during this emergency room visit. Administered Medications: 22:45 Drug: AZITHromycin PO 500 mg PO once Route: PO; me1 22:48 Follow up: Response: No adverse reaction me1 22:45 Drug: Cefdinir PO 300 mg PO once Route: PO; me1 22:48 Follow up: Response: No adverse reaction me1 Medication: 22:45 VIS not applicable for this client. me1 Outcome: 22:21 Discharge ordered by . kb 22:46 Discharged to home ambulatory, with significant other, me1 22:46 Condition: stable 22:46 Discharge instructions given to patient, significant other, Instructed on discharge instructions, follow up and referral plans. medication usage, Demonstrated understanding of instructions, follow-up care, medications, Prescriptions given X 2, 22:47 Patient left the ED. me1 Signatures: Mary Ellen Colby, AUTOMATIC CENTRIFUGAL STATION OPERATOR-C AUTOMATIC CENTRIFUGAL STATION OPERATOR-Ckb Meme Elmore [id number] Giorgio Boyle MD MD sp4 Meliza Colmenares RN RN me1 Corrections: (The following items were deleted from the chart) 21:59 21:58 PMHx: laryngopharyngeal reflux disease (Unknown); me1 me1
--- NOTE | 2024-10-07 22:22 | EDPHYS ---
Physician Documentation [facility] Name: Daphne Samuels Age: 79 yrs Sex: Female : 1945 Arrival Date: 10/07/2024 Time: 21:47 Bed IW1 Private MD: ED Physician Giorgio Boyle HPI: 10/07 22:03 This 79 yrs old Female presents to ER via Ambulatory with complaints of sp4 MEDICATION REACTION. 22:12 Pt reports she had some tingling in both feet around 1999 this evening and is concerned kb that it is due to the levaquin that she started yesterday. States she did not take her dose tonight because of the concern. Pt states she had similar tingling to bilateral feet after getting IV contrast for CT when she was here in August. Denies any other symptoms. Denies any dyspnea, coughing up blood. . Historical: - Allergies: 21:58 metronidazole; me1 21:58 Omeprazole; me1 - PMHx: 21:58 Hypertensive disorder; Hypothyroidism; Macular degenerative; me1 - PSHx: 21:58 cataract; section; me1 - Immunization history:: Adult Immunizations up to date. - Infectious Disease History:: Denies. - Social history:: Smoking status: Patient/guardian denies using tobacco, but has a distant history of tobacco abuse. ROS: 22:14 Constitutional: As per HPI kb Exam: 22:14 Constitutional: This is a well developed, well nourished patient who is awake, alert, kb and in no acute distress. Head/Face: Normocephalic, atraumatic. ENT: Moist Mucous membranes Cardiovascular: Regular rate Respiratory: Respirations even and unlabored. No increased work of breathing. Talking in full sentences Abdomen/GI: Soft, non-tender. No distention Skin: Warm, dry with normal turgor. Normal color. MS/ Extremity: Pulses equal, no cyanosis. Neurovascular intact. Full, normal range of motion. Neuro: Awake and alert, GCS 15, oriented to person, place, time, and situation. Vital Signs: 21:56 BP 160 / 87; Pulse 75; Resp 18; Temp 98; Pulse Ox 98% ; Weight 40.82 kg; Height 4 ft. me1 10 in. ; Pain 0/10; 22:47 BP 154 / 82; Pulse 72; Resp 17; Temp 98.2; Pulse Ox 99% ; me1 21:56 Body Mass Index 18.81 (40.82 kg, 147.32 cm) me1 21:56 Pain Scale: Adult me1 MDM: 22:05 Medical Screening Exam initiated kb 22:15 Data reviewed: vital signs, nurses notes. kb 22:15 ED course: Pt reported concern about taking levaquin yesterday due to having a kb reaction in the past. We discussed it yesterday and she decided to take it since Dr Rondon suggested it. Discussed the case with Dr Tamar mario and he recommends changing to zithromax and cefdinir. Pt in agreement. . 22:18 Counseling: I had a detailed discussion with the patient and/or guardian regarding the kb historical points, exam findings, and any diagnostic results supporting the discharge/admit diagnosis, the need for outpatient follow up, a family practitioner, to return to the emergency department if symptoms worsen or persist or if there are any questions or concerns that arise at home. 22:27 Differential diagnosis: allergic reaction, adverse reaction to medication. kb Administered Medications: 22:45 Drug: AZITHromycin PO 500 mg PO once Route: PO; me1 22:48 Follow up: Response: No adverse reaction me1 22:45 Drug: Cefdinir PO 300 mg PO once Route: PO; me1 22:48 Follow up: Response: No adverse reaction me1 Disposition: 23:01 Co-signature as Attending Physician, Giorgio Boyle MD I agree with the assessment sp4 and plan of care. I reviewed the patient's care provided by the Advanced Practice Provider and agree with the diagnosis and treatment plan. Disposition Summary: 10/07/24 22:21 Discharge Ordered Notes: Location: Home kb Condition: Stable kb Diagnosis - Adverse reaction to levaquin kb - Pneumonia, unspecified organism kb Followup: kb - With: Emergency Department - When: As needed - Reason: Worsening of condition Followup: kb - With: Private Physician - When: 2 - 3 days - Reason: Recheck today's complaints, Continuance of care, Re-evaluation by your physician Discharge Instructions: - Discharge Summary Sheet kb - Community-Acquired Pneumonia, Adult, [id number] kb Forms: - Medication Reconciliation Form kb - Antibiotic Education kb - Prescription Opioid Use kb - Patient Portal Instructions kb - Leadership Thank You Letter kb Prescriptions: - cefdinir 300mg - take 1 capsule ORAL route every 12 hours; 19 capsule; Refills: 0, Product kb Selection Permitted - Zithromax 500 mg Oral tablet - take 1 tablet ORAL route once daily for 4 days; 4 tablet; Refills: 0, Product kb Selection Permitted Signatures: Mary Ellen Colby, TANYA-C PROGRAM SCHEDULER-Giorgio Jeffries MD MD sp4 Meliza Colmenares, BIMAL RN me1 Corrections: (The following items were deleted from the chart) 21:59 21:58 PMHx: laryngopharyngeal reflux disease (Unknown); me1 me1 22:28 22:15 ED course: Pt reported concern about taking levaquin yesterday due to al having a reaction in the past. We discussed it yesterday and she decided to take it since Dr Rondon suggested it. Discussed the case with Dr Tamar mario and he recommends changing to zithromax and cefdinir. Pt in agreement. . kb 10/08 00:33 10/07 22:12 Pt reports she had some tingling in both feet around 1999 this evening and al is concerned that it is due to the levaquin that she started yesterday. States she did not take her dose tonight because of the concern. Denies any other symptoms. Denies any dyspnea, coughing up blood. . kb
[2024-10-07] MEDS ORDERED: CEFDINIR 300 MG CAP PO ONE (22:42)
[2024-10-07] MEDS ORDERED: AZITHROMYCIN 250 MG TAB ONE (22:42)
[2024-10-07 22:53] VITALS: BP 154/82; TEMP 98.2; O2SAT 99
== END 2024-10-07 22:47 | disposition home or self-care (01) ==
LOC: ER 21:47
DX: R20.2 Paresthesia of skin (principal); T36.8X5A Adverse effect of other systemic antibiotics, initial encounter; J18.9 Pneumonia, unspecified organism
CPT/HCPCS: 99283

== ENCOUNTER 2024-10-11 10:53 | Emergency (ER) | payer OTHER ==
--- OUTSIDE RECORDS SUMMARY | 2024-10-11 11:18 | XMS REPORT | Continuity of Care Document ---
Author Name Unknown Address [address] [place] [address] [facility] [place] Address [address] [place] [address] Care Team Providers Care Marketing Executive Name Role Phone Alocn APONTE, Slim Beard Primary Care Physician Zulay Galindo Attending Clinician Unavailable Kary Anguiano Attending Clinician Unavailable Payers Payer Name Policy Type Policy Number Effective Date Expirati on Date Source [facility] Care Medicare Advantage [id number] 2020 00:00:00 [facility] Care Medicare Advantage [id number] 2020 00:00:00 [facility] Problems Condition Name Condition Details Condition Category Status Onset Date Resolution Date Last Treatment Date Treating Clinician Comments Source Decreased hearing Decreased hearing Problem [facility] [id number] Irregular heart beat Problem [facility] [id number] Hematoma Problem Active Comm on [facility] [id number] Screening for osteoporos is Problem Active [facility] Hypertensi on Hypertensi on Problem Active [facility] Hyperlipop roteinemia Acquired hyperlipop roteinemia Problem Active [facility] 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 Problem Active [facility] Acquired hypothyroi dism Acquired hypothyroi dism Problem Active [facility] Hyperlipid emia Hyperlipid emia Problem Active [facility] [id number] Elevated serum globulin level Problem Active [facility] [id number] 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 [facility] Allergic rhinitis Allergic rhinitis, unspecifie d seasonalit y, unspecifie d trigger Problem Active [facility] [id number] Needs flu shot Problem Active [facility] [id number] Arthritis of left hand Problem Active [facility] [id number] Renal insufficie ncy Problem Active [facility] Vitamin deficiency Encounter for vitamin deficiency screening Problem Active [facility] 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 Problem Active [facility] [id number] Primary osteoarthr itis, left hand Problem Active [facility] [id number] Primary osteoarthr itis, right hand Problem Active [facility] Allergies, Adverse Reactions, Alerts Allergy Name Allergy Type Status Severity Reaction(s) Onset Date Inactive Date Treating Clinician Comments Source loratadi ne / pseudoep hedrine loratadi ne / pseudoep hedrine Active Unknown [facility] Social History Social Habit Start Date Stop Date Quantity Comments Source History of Tobacco Use [facility] Sex Assigned At [facility] Smoking Status Start Date Stop Date Source Never Smoker [facility] Former Smoker 2022-01-21 00:00:00 2022-01-21 00:00:00 [facility] Medications Ordered Medication Name Filled Medication Name Start Date Stop Date Current Medication? Ordering Clinician Indication Dosage Frequency Signature (SIG) Comments Components Source Benzonatate 100 MG Benzonatate 100 MG 2023-07 00:00: 00 No 1{capsu le_as_n eeded} TID Benzonatat e 100 MG SOLU-Medrol SOLU-Medrol 2023-07 00:00: 00 No 125mg [facility] Aspir-Low 81 MG Aspir-Low 81 MG [...] Comments Source FluAD FluAD 2021-04-03 14:11:00 Completed [facility] FluAD FluAD 2021-04-03 14:11:00 Completed [facility] FluAD FluAD 2020-05-01 10:14:00 Completed [facility] FluAD FluAD 2020-05-01 10:14:00 Completed [facility] FluAD FluAD 2019-03-29 12:37:00 Completed [facility] FluAD FluAD 2019-03-29 12:37:00 Completed [facility] FluAD FluAD 2019-03-29 00:00:00 Completed [facility] FluAD FluAD Unknown Completed [facility] FluAD FluAD Unknown Completed [facility] FluAD FluAD Unknown Completed [facility] FluAD FluAD Unknown Completed [facility] FluAD FluAD Unknown Completed [facility] FluAD FluAD Unknown Completed [facility] FluAD FluAD Unknown Completed [facility] FluAD FluAD Unknown Completed [facility] FluAD FluAD Unknown Completed [facility] FluAD FluAD Unknown [facility]pleted [facility] FluAD FluAD Unknown Completed [facility] FluAD FluAD Unknown Completed [facility] Vital Signs Vital Name Observation Time Observation Value Comments S andrece height 2024-09-14 08:40:00 58 [in_i] Commo n [facility] weight 2024-09-14 08:40:00 90 [lb_av] Commo n [facility] bmi 2024-09-14 08:40:00 18.81 kg/m2 Comm on [facility] height 2024-07-04 14:00:00 58 [in_i] Commo n [facility] weight 2024-07-04 14:00:00 98.8 [lb_av] Com [facility] temperature 2024-07-04 14:00:00 97.0 [degF] Com [facility] bmi 2024-07-04 14:00:00 20.65 kg/m2 Comm on [facility] oximetry 2024-07-04 14:00:00 98 [facility] 2024-07-04 14:00:00 16 /min [facility] blood pressure systolic 2024-07-04 14:00:00 142 mm[Hg] [facility] blood pressure diastolic 2024-07-04 14:00:00 66 mm[Hg] [facility] height 2024-05-17 11:20:00 58 [in_i] Commo n [facility] weight 2024-05-17 11:20:00 100 [lb_av] Comm on [facility] temperature 2024-05-17 11:20:00 97.3 [degF] Com [facility] bmi 2024-05-17 11:20:00 20.9 kg/m2 Commo n [facility] oximetry 2024-05-17 11:20:00 97 % Commo n [facility] respiratory rate 2024-05-17 11:20:00 16 /min [facility] blood pressure systolic 2024-05-17 11:20:00 120 mm[Hg] [facility] blood pressure diastolic 2024-05-17 11:20:00 72 mm[Hg] [facility] height 2024-02-15 11:20:00 58 [in_i] Commo n [facility] weight 2024-02-15 11:20:00 100.4 [lb_av] Co [facility] temperature 2024-02-15 11:20:00 97.6 [degF] Com [facility] bmi 2024-02-15 11:20:00 20.98 kg/m2 Comm on [facility] oximetry 2024-02-15 11:20:00 97 % Commo n [facility] respiratory rate 2024-02-15 11:20:00 16 /min [facility] blood pressure systolic 2024-02-15 11:20:00 118 mm[Hg] [facility] blood pressure diastolic 2024-02-15 11:20:00 68 mm[Hg] [facility] height 2023-11-16 10:00:00 58 [in_i] Commo n [facility] weight 2023-11-16 10:00:00 101.6 [lb_av] Co [facility] temperature 2023-11-16 10:00:00 97.3 [degF] Com [facility] bmi 2023-11-16 10:00:00 21.23 kg/m2 Comm on [facility] oximetry 2023-11-16 10:00:00 98 % Commo n [facility] respiratory rate 2023-11-16 10:00:00 16 /min Common [facility] blood pressure systolic 2023-11-16 10:00:00 112 mm[Hg] [facility] blood pressure diastolic 2023-11-16 10:00:00 56 mm[Hg] [facility] height 2023-08-16 10:00:00 58 [in_i] Commo n [facility] weight 2023-08-16 10:00:00 102 [lb_av] Comm on [facility] temperature 2023-08-16 10:00:00 97.8 [degF] Com mon [facility] bmi 2023-08-16 10:00:00 21.32 kg/m2 Comm on [facility] oximetry 2023-08-16 10:00:00 97 % Commo n [facility] respiratory rate 2023-08-16 10:00:00 16 /min [facility] blood pressure systolic 2023-08-16 10:00:00 134 mm[Hg] Common [facility] blood pressure diastolic 2023-08-16 10:00:00 76 mm[Hg] [facility] height 2023-08-16 11:20:00 58 [in_i] Commo n [facility] weight 2023-08-16 11:20:00 102 [lb_av] Comm on [facility] temperature 2023-08-16 11:20:00 97.8 [degF] Com mon [facility] bmi 2023-08-16 11:20:00 21.32 kg/m2 Comm on [facility] oximetry 2023-08-16 11:20:00 97 % Commo n [facility] respiratory rate 2023-08-16 11:20:00 16 /min Common [facility] blood pressure systolic 2023-08-16 11:20:00 134 mm[Hg] [facility] blood pressure diastolic 2023-08-16 11:20:00 76 mm[Hg] [facility] height 2023-04-22 09:40:00 58 [in_i] Commo n [facility] weight 2023-04-22 09:40:00 106.8 [lb_av] Co mmon [facility] temperature 2023-04-22 09:40:00 97.0 [degF] Com mon [facility] bmi 2023-04-22 09:40:00 22.32 kg/m2 Comm on [facility] oximetry 2023-04-22 09:40:00 97 % Commo n [facility] respiratory rate 2023-04-22 09:40:00 16 /min [facility] blood pressure systolic 2023-04-22 09:40:00 139 mm[Hg] [facility] blood pressure diastolic 2023-04-22 09:40:00 77 mm[Hg] [facility] height 2023-01-20 09:20:00 58 [in_i] Commo n [facility] weight 2023-01-20 09:20:00 113.4 [lb_av] Co mmon [facility] temperature 2023-01-20 09:20:00 97.0 [degF] Com mon [facility] bmi 2023-01-20 09:20:00 23.7 kg/m2 Commo n [facility] oximetry 2023-01-20 09:20:00 98 % Commo n [facility] respiratory rate 2023-01-20 09:20:00 16 /min [facility] blood pressure systolic 2023-01-20 09:20:00 125 mm[Hg] [facility] blood pressure diastolic 2023-01-20 09:20:00 81 mm[Hg] Common [facility] height 2022-11-25 13:20:00 58 [in_i] Commo n [facility] weight 2022-11-25 13:20:00 114.8 [lb_av] Co [facility] temperature 2022-11-25 13:20:00 98.4 [degF] Com [facility] bmi 2022-11-25 13:20:00 23.99 kg/m2 Comm on [facility] oximetry 2022-11-25 13:20:00 96 % Commo n [facility] respiratory rate 2022-11-25 13:20:00 16 /min Common [facility] blood pressure systolic 2022-11-25 13:20:00 122 mm[Hg] Common [facility] blood pressure diastolic 2022-11-25 13:20:00 84 mm[Hg] Common [facility] height 2022-11-25 14:00:00 58 [in_i] Commo n [facility] weight 2022-11-25 14:00:00 114.8 [lb_av] Co [facility] temperature 2022-11-25 14:00:00 98.4 [degF] Com [facility] bmi 2022-11-25 14:00:00 23.99 kg/m2 Comm on [facility] oximetry 2022-11-25 14:00:00 96 % Commo n [facility] respiratory rate 2022-11-25 14:00:00 16 /min Common [facility] blood pressure systolic 2022-11-25 14:00:00 122 mm[Hg] [facility] blood pressure diastolic 2022-11-25 14:00:00 84 mm[Hg] Common [facility] height 2022-02-04 08:40:00 58 [in_i] Commo n [facility] weight 2022-02-04 08:40:00 105 [lb_av] Comm on [facility] bmi 2022-02-04 08:40:00 21.94 kg/m2 Comm on [facility] height 2021-10-15 09:00:00 58 [in_i] Commo n [facility] weight 2021-10-15 09:00:00 104 [lb_av] Comm on [facility] bmi 2021-10-15 09:00:00 21.73 kg/m2 Comm on [facility] height 2021-04-10 09:00:00 58 [in_i] Commo n [facility] weight 2021-04-10 09:00:00 104 [lb_av] Comm on [facility] temperature 2021-04-10 09:00:00 97.4 [degF] Com mon [facility] bmi 2021-04-10 09:00:00 21.73 kg/m2 Comm on [facility] oximetry 2021-04-10 09:00:00 97 % Commo n [facility] respiratory rate 2021-04-10 09:00:00 15 /min [facility] blood pressure systolic 2021-04-10 09:00:00 128 mm[Hg] [facility] blood pressure diastolic 2021-04-10 09:00:00 70 mm[Hg] [facility] Height Measured 2024-09-14 14:14:00 49.20 inches Sergei [...] End Date/Time Encounter Type Admission Type Attending [facility] Facility Care Department Encounter ID Source 2024-02-11 10:49:00 Outpatient Zulay Galindo [facility] [id number] [facility] 2023-11-16 09:29:00 Outpatient Zulay Galindo [facility] [id number] [facility] 2022-10-01 10:01:00 Outpatient Zulay Galindo [facility] [id number] [facility] 2022-09-09 16:36:00 Outpatient Zulay Galindo [facility] [id number] [facility] 2022-02-02 08:15:00 Outpatient Anguiano, Na [facility] [id number] [facility] 2021-10-13 08:34:01 Outpatient Anguiano, Na [facility] [id number] [facility] 2021-08-13 12:37:36 Outpatient Anguiano, Na [facility] [id number] [facility] 2021-08-13 12:12:37 Outpatient Anguiano, Na [facility] [id number] [facility] 2021-08-13 12:11:40 Outpatient Anguiano, Na [facility] [id number] [facility] 2021-08-13 12:09:23 Outpatient Anguiano, Na [facility] [id number] [facility] 2021-08-13 11:25:00 Outpatient Anguiano, Na [facility] [id number] [facility] 2021-08-13 11:17:12 Outpatient Anguiano, Na [facility] [id number] [facility] 2024-09-14 13:58:59 2024-09-14 13:58:59 Outpatient [facility] [id number] Sergei Maher 2024-09-14 00:00:00 2024-09-14 00:00:00 (EST. VIDEO) EST VIRTUAL VIDEO VISIT [facility] [id number] [facility] 2024-09-14 00:00:00 2024-09-14 00:00:00 Outpatient Visit [facility] [id number] Sergei Maher 2024-09-11 00:00:00 2024-09-11 00:00:00 (TEL) [facility] [id number] [facility] 2024-07-04 00:00:00 2024-07-04 00:00:00 (TEL) [facility] [id number] [facility] 2024-07-04 00:00:00 2024-07-04 00:00:00 OFFICE VISIT ESTAB PT LEVEL 4 [facility] [id number] [facility] 2024-05-17 00:00:00 2024-05-17 00:00:00 OFFICE VISIT ESTAB PT LEVEL 4 [facility] [id number] [facility] 2024-02-15 00:00:00 2024-02-15 00:00:00 OFFICE VISIT ESTAB PT LEVEL 4 [facility] [id number] [facility] 2023-11-16 00:00:00 2023-11-16 00:00:00 OFFICE VISIT ESTAB PT LEVEL 4 [facility] [id number] [facility] 2023-08-16 00:00:00 2023-08-16 00:00:00 SUB ANNUAL [facility]LL[facility] VISIT [facility] [id number] [facility] 2023-08-16 00:00:00 2023-08-16 00:00:00 OFFICE VISIT ESTAB PT LEVEL 4 [facility] [id number] [facility] 2023-04-22 00:00:00 2023-04-22 00:00:00 OFFICE VISIT ESTAB PT LEVEL 4 [facility] [id number] [facility] 2023-04-22 00:00:00 2023-04-22 00:00:00 (TEL) [facility] [id number] [facility] 2023-04-22 00:00:00 2023-04-22 00:00:00 (TEL) [facility] [id number] [facility] 2023-01-20 00:00:00 2023-01-20 00:00:00 OFFICE VISIT ESTAB PT LEVEL 4 [facility] [id number] [facility] 2022-12-21 00:00:00 2022-12-21 00:00:00 (TEL) [facility] [id number] [facility] 2022-11-25 00:00:00 2022-11-25 00:00:00 OFFICE VISIT ESTAB PT LEVEL 4 [facility] [id number] [facility] 2022-11-25 00:00:00 2022-11-25 00:00:00 SUB ANNUAL [facility] WELLNESS VISIT [facility] [id number] [facility] 2022-10-01 00:00:00 2022-10-01 00:00:00 (TEL) [facility] [id number] [facility] 2022-02-04 00:00:00 2022-02-04 00:00:00 OFFICE VISIT ESTAB PT LEVEL 4 [facility] [id number] [facility] 2021-10-15 00:00:00 2021-10-15 00:00:00 (TEL) [facility] [id number] [facility] 2021-10-15 00:00:00 2021-10-15 00:00:00 OFFICE VISIT ESTAB PT LEVEL 4 [facility] [id number] [facility] 2021-10-15 00:00:00 2021-10-15 00:00:00 (TEL) [facility] [id number] [facility] 2021-04-10 00:00:00 2021-04-10 00:00:00 OFFICE VISIT ESTAB PT LEVEL 4 [facility] [id number] [facility] 2021-04-03 00:00:00 2021-04-03 00:00:00 (INJ) Injection [facility] [id number] [facility] 2020-09-06 00:00:00 2020-09-06 00:00:00 Outpatient [facility] [id number] [facility] 2020-06-28 00:00:00 2020-06-28 00:00:00 Outpatient [facility] [id number] [facility] 2020-05-01 00:00:00 2020-05-01 00:00:00 Outpatient [facility] [id number] [facility] 2019-12-26 13:00:00 2019-12-26 13:00:[address] [facility] [id number] [facility] 2019-06-27 13:00:00 2019-06-27 13:00:00 [facility] [id number] [facility] 2019-03-31 05:20:00 2019-03-31 05:20:00 [facility] [id number] [facility] 2019-03-29 11:00:00 2019-03-29 11:00:00 [facility] [id number] [facility] 2019-03-28 13:00:00 2019-03-28 13:00:00 [facility] [id number] [facility] 2018-12-20 13:00:00 2018-12-20 13:00:00 Outpatient [facility] [id number] [facility] 2018-09-20 09:30:00 2018-09-20 09:30:00 Outpatient [facility] [id number] [facility] 2018-06-20 14:30:00 2018-06-20 14:30:00 Outpatient [facility] [id number] [facility] 2018-03-17 14:00:00 2018-03-17 14:00:00 Outpatient [facility] [id number] [facility] 2017-12-14 14:15:00 2017-12-14 14:15:00 Outpatient [facility] [id number] [facility] Results Test Description Test Time Test Comments Results Result Co mments Source LIPID PANEL WITH REFLEX TO DIRECT [id number] 00:00:00* Test Item Value Reference Range Interpretation Comme nts ALBUMIN (test code = 1751-7) 3.6 g/dL See_Comment N [Automated [employer]] The system which generated this result transmitted [...] = 1742-6) 8 U/L See_Comment N [Automated [employer]] The system which generated this result transmitted [...] result as normal/abnormal. CALCIUM (test code = 90648-5) 9.6 mg/dL See_Comment N [Automated messa ge] [...] result as normal/abnormal. GLOBULIN (test code = 01660-5) 3.1 g/dL (calc) See_Comment N [Automated message] The system which generated this result transmitted reference range: 1.9-3.7 g/dL (calc). The reference range was not used to interpret this result as normal/abnormal. GLUCOSE (test code = 2345-7) 82 mg/dL See_Comment N [Automated [employer] ge] The system which generated this result transmitted reference range: 65-99 mg/dL. The reference range was not used to interpret this result as normal/abnormal. POTASSIUM (test code = 2823-3) 4.5 mmol/L See_Comment N [Automated [employer] ge] The system which generated this result transmitted reference range: 3.5-5.3 mmol/L. The reference range was not used to interpret this result as normal/abnormal. PROTEIN, TOTAL (test code = 2885-2) 6.7 g/dL See_Comment N [Automated [employer] ge] The system which generated this result transmitted reference range: 6.1-8.1 g/dL. The reference range was not used to interpret this result as normal/abnormal. SODIUM (test code = 2951-2) 139 mmol/L See_Comment N [Automated [employer] ge] The system which generated this result [...] = 9830-1) 3.7 (calc) See_Comment N [Automated [employer] ge] The system which generated this result [...] = 2085-9) 46 mg/dL See_Comment L [Automated [employer] ge] The system which generated this result transmitted reference range: > OR = 50 mg/dL. The reference range was not used to interpret this result as normal/abnormal. LDL-CHOLESTEROL (test code = 58148-3) 106 mg/dL (calc) H TRIGLYCERIDES (test code = 2571-8) 71 mg/dL See_Comment N [Automated messa ge] The system which generated this result transmitted reference range: <150 mg/dL. The reference range was not used to interpret this result as normal/abnormal. POC, COVID 19 Antigen + Flu by SofiaPOC, COVID 19 Antigen + Flu by Melva Notes Date/Time Note Provider Source Sergei Magana [facility]
--- NOTE | 2024-10-11 12:37 | RAD REPORT ---
Procedure: Chest Single View HISTORY: Cough COMPARISON: October 06, 2024 FINDINGS: Mild right middle lobe alveolar opacity. Moderate reticular nodular opacities scattered throughout the lungs. Lungs are moderately hyperaerated.. No significant pleural effusion noted. The heart is normal size. IMPRESSION: Bilateral pulmonary opacities system with infection. Overall no significant change since prior exam
[2024-10-11 13:08] LABS: Absolute Lymphocytes (CBC) 1.2 K/uL (0.7-4.9); Absolute Monocytes 0.6 K/uL (0.1-1.3); Absolute Neutrophil 8.7 K/uL (1.8-8.0); Basophils % 0.1 % (0-1.3); Eosinophils % 0.2 % (0-4.4); Hematocrit 40.1 % (36.0-45.0); Hemoglobin 13.2 g/dL (12.0-15.0); Lymphocytes % 11.3 % (15.3-44.8); MCH 29.4 pg (27.0-35.0); MCHC 32.8 g/dL (32.0-36.0); MCV 89.5 fL (80-100); MPV 10.5 fL (7.6-11.3); Monocytes % 5.6 % (3.3-12.3); Neutrophils % 82.8 % (41.7-73.7); Nucleated Red Blood Cells % 0.1 % (0-0); Platelets 218 thou/uL (152-406); RBC Red Blood Cell Count 4.48 M/uL (3.86-4.86); Red Cell Distribution Width 14.8 % (12.1-15.2)
[2024-10-11 13:38] LABS: Anion Gap 8.2 mEq/L (5.0-15.0); Potassium 4.2 mEq/L (3.5-5.1)
--- NOTE | 2024-10-11 13:42 | ER ---
Nurse's Notes [facility] Name: Daphne Samuels Age: 79 yrs Sex: Female : 1945 Arrival Date: 10/11/2024 Time: 10:53 Bed 5 Private MD: Diagnosis: Weakness Presentation: 10/11 11:31 Chief complaint: Patient states: I have pneumonia , was in the hospital in aug, and the iw reason I'm here is I have been taking the medicine for 5 days and I still have a hard time breathing and I can't do anything around the house because I'm SOB. Coronavirus screen: Client presents with at least one sign or symptom that may indicate coronavirus-19. Ebola Screen: No symptoms or risks identified at this time. Initial Sepsis Screen: Does the patient meet any 2 criteria? No. Patient's initial sepsis screen is negative. Does the patient have a suspected source of infection? No. Patient's initial sepsis screen is negative. 11:31 Method Of Arrival: Ambulatory iw 11:34 Risk Assessment: Do you want to hurt yourself or someone else? Patient reports no iw desire to harm self or others. Onset of symptoms was October 06, 2024. 11:34 Acuity: AYSHA 3 iw Triage Assessment: 12:59 Respiratory: ph Historical: - Allergies: 11:34 metronidazole; iw 11:34 Omeprazole; iw - PMHx: 11:34 Hypertensive disorder; Hypothyroidism; Macular degenerative; iw - PSHx: 11:34 cataract; section; iw - Immunization history:: Adult Immunizations unknown. - Infectious Disease History:: Denies. - Social history:: Smoking status: Patient denies any tobacco usage or history of. Screenin:58 [facility] ED Fall Risk Assessment (Adult) History of falling in the last 3 months, ph including since admission No falls in past 3 months (0 pts) Confusion or Disorientation No (0 pts) Intoxicated or Sedated No (0 pts) Impaired Gait No (0 pts) Mobility Assist Device Used No (0 pt) Altered Elimination No (0 pt) Score/Fall Risk Level 0 - 2 = Low Risk Oriented to surroundings, Maintained a safe environment, Hourly rounding (assess needs \T\ fall precautionary measures) done. Abuse screen: Denies threats or abuse. Denies injuries from another. Nutritional screening: No deficits noted. Tuberculosis screening: No symptoms or risk factors identified. Assessment: 14:06 Reassessment: Patient appears in no apparent distress at this time. Patient and/or db family updated on plan of care and expected duration. Pain level reassessed. Patient is alert, oriented x 3, equal unlabored respirations, skin warm/dry/pink. General: Appears in no apparent distress. comfortable. Pain: Denies pain. Neuro: Level of Consciousness is awake, alert, obeys commands, Oriented to person, place, time, situation. Cardiovascular: Rhythm is regular. Respiratory: Airway is patent Respiratory effort is even, unlabored, Respiratory pattern is regular, symmetrical, Breath sounds are clear. Vital Signs: 11:31 BP 151 / 86; Pulse 69; Resp 19; Temp 98.1; Pulse Ox 100% on R/A; iw 13:00 BP 123 / 71; Pulse 65; Resp 16; Pulse Ox 100% ; db 13:46 BP 139 / 97; Pulse 69; Resp 16; Pulse Ox 99% on R/A; db ED Course: 10:58 Patient arrived in ED. cj3 11:00 Александр Menjivar MD is Attending Physician. ec2 11:34 Triage completed. iw 11:34 Arm band placed on. iw 12:25 XRAY Chest (1 view) In Process Unspecified. EDMS 12:27 Patient placed in an exam room, on a stretcher. ll1 12:40 Dana Viveros, RN is Primary Nurse. ph 12:58 Initial lab(s) drawn, by ny, sent to lab. Inserted saline lock: 20 gauge in right ph antecubital area, using aseptic technique. Blood collected. Flushed with 10 mL NS. 12:59 Patient has correct armband on for positive identification. Bed in low position. Call ph light in reach. Side rails up X 1. Pulse ox on. NIBP on. Door closed. Noise minimized. Warm blanket given. 14:06 Provided Education on: DISCHARGE AND FOLLOWUP. db 14:06 No provider procedures requiring assistance completed. IV discontinued, intact, db bleeding controlled, No redness/swelling at site. Administered Medications: No medications were administered Medication: 12:59 VIS not applicable for this client. ph Outcome: 13:42 Discharge ordered by . ec2 14:06 Discharged to home ambulatory, with family, db 14:06 Condition: stable 14:06 Discharge instructions given to patient, Instructed on discharge instructions, follow up and referral plans. 14:07 Patient left the ED. db Signatures: Dispatcher [employer] Cecilia Acuna RN RN Dana Viveros RN BIMAL Bernie Vernon RN RN ll1 Valerie Poe RN RN db Александр Menjivar MD MD ec2 Mya Rodriguez 3
--- NOTE | 2024-10-11 13:42 | EDPHYS ---
Physician Documentation [facility] Name: Daphne Samuels Age: 79 yrs Sex: Female : 1945 Arrival Date: 10/11/2024 Time: 10:53 Bed 5 Private MD: ED Physician Александр Menjivar HPI: 10/11 12:07 This 79 yrs old Female presents to ER via Ambulatory with complaints of ec2 Pneumonia, Breathing Difficulty, General Weakness. 12:07 Patient with recent diagnosis of pneumonia arrives today for generalized weakness. ec2 Reports that she does not feel like she has gone back to her baseline, with recent diagnosis of pneumonia, is on cefdinir and azithromycin, reports that she has been eating and drinking however generally feels weak. Reports no significant shortness of breath. Patient reports no fevers, no vomiting, no diarrhea.. Historical: - Allergies: 11:34 metronidazole; iw 11:34 Omeprazole; iw - PMHx: 11:34 Hypertensive disorder; Hypothyroidism; Macular degenerative; iw - PSHx: 11:34 cataract; section; iw - Immunization history:: Adult Immunizations unknown. - Infectious Disease History:: Denies. - Social history:: Smoking status: Patient denies any tobacco usage or history of. ROS: 12:07 Constitutional: as per hpi ec2 Exam: 12:07 Constitutional: GEN: NAD Head: atraumatic Eyes: EOMI Ears: External ears are ec2 normal. CV: regular rate LUNGS: no respiratory distress, occasional scattered wheeze appreciated ABD: non-distended SKIN: no evidence of rashes MSK: no evidence of trauma Vital Signs: 11:31 BP 151 / 86; Pulse 69; Resp 19; Temp 98.1; Pulse Ox 100% on R/A; iw 13:00 BP 123 / 71; Pulse 65; Resp 16; Pulse Ox 100% ; db 13:46 BP 139 / 97; Pulse 69; Resp 16; Pulse Ox 99% on R/A; db MDM: 12:06 Medical Screening Exam initiated ec2 12:07 Data reviewed: vital signs, nurses notes. ED course: Patient arrives today for ec2 evaluation of general weakness. Examination yields well-appearing nontoxic dynamically stable with reassuring cardiopulmonary examination. Will obtain basic lab work and chest x-ray. Suspect sequela of patient's known pneumonia. Additionally evaluated for processes and shows dehydration, electrolyte disturbances, anemia.. 13:42 ED course: Labs show no evidence of dehydration, no evidence of electrolyte ec2 disturbances or anemia. Chest x-ray is unchanged compared to previous chest x-ray, no interval worsening. On reassessment patient is well-appearing no acute distress, is not hypoxic and is not working hard to breathe. Will discharge home and follow with primary care doctor. Return precautions given.. 10/11 11:53 Order name: Basic Metabolic Panel; Complete Time: 13:41 ec2 10/11 11:53 Order name: CBC with Diff; Complete Time: 13:33 ec2 10/11 11:53 Order name: XRAY Chest (1 view); Complete Time: 12:55 ec2 10/11 11:53 Order name: Cardiac monitoring; Complete Time: 14:04 ec2 10/11 11:53 Order name: EKG - Nurse/Tech; Complete Time: 14:04 ec2 10/11 11:53 Order name: IV Saline Lock; Complete Time: 12:58 ec2 10/11 11:53 Order name: Labs collected and sent; Complete Time: 12:58 ec2 10/11 11:53 Order name: O2 Per Protocol; Complete Time: 12:58 ec2 10/11 11:53 Order name: O2 Sat Monitoring; Complete Time: 12:58 ec2 Administered Medications: No medications were administered Disposition Summary: 10/11/24 13:42 Discharge Ordered Notes: Location: Home ec2 Condition: Stable ec2 Diagnosis - Weakness ec2 Followup: ec2 - With: Private Physician - When: - Reason: Re-evaluation by your physician Discharge Instructions: - Discharge Summary Sheet ec2 - Weakness, [id number] ec2 Forms: - Medication Reconciliation Form ec2 - Antibiotic Education ec2 - Prescription Opioid Use ec2 - Patient Portal Instructions ec2 - Leadership Thank You Letter ec2 Signatures: Dispatcher [employer] Cecilia Acuna RN RN iw Hall, Patricia, RN RN ph Corral, Edwin, MD MD ec2 Corrections: (The following items were deleted from the chart) 11:53 11:53 BASIC METABOLIC PANEL+C.LAB.BRZ ordered. EDMS EDMS 11:53 11:53 CBC+H.LAB.BRZ ordered. EDMS EDMS 11:53 11:53 Chest Single View+RAD.RAD.BRZ ordered. EDMS EDMS
[2024-10-11 16:32] VITALS: TEMP 98.1
[2024-10-11 16:35] VITALS: BP 139/97; O2SAT 99
== END 2024-10-11 14:07 | disposition home or self-care (01) ==
LOC: ER 10:53
DX: R53.1 Weakness (principal); I10 Essential (primary) hypertension
CPT/HCPCS: 36415; 71045; 80048; 85025

== ENCOUNTER 2024-11-05 20:34 | Emergency (ER) | payer OTHER ==
--- OUTSIDE RECORDS SUMMARY | 2024-11-05 20:37 | XMS REPORT | Continuity of Care Document ---
Author Name Unknown Address [address] [facility] [place] [address] [facility] [place] Address [address] [facility] [place] [address] Care Team Providers Care Quality System Manager Name Role Phone Alcon APONTE, Slim Beard Primary Care Physician [phone] Zulay Galindo Attending Clinician Unavailable Kary Anguiano Attending Clinician Unavailable Payers Payer Name Policy Type Policy Number Effective Date Expirati on Date Source [facility] Care Medicare Advantage [id number] 2020 00:00:00 [facility] Care Medicare Advantage [id number] 2020 00:00:00 [facility] Problems Condition Name Condition Details Condition Category Status Onset Date Resolution Date Last Treatment Date Treating Clinician Comments Source Decreased hearing Decreased hearing Problem [facility] [id number] Irregular heart beat Problem [facility] [id number] Hematoma Problem Active Comm on [facility] [id number] Screening for osteoporos is Problem Active [facility] Hypertensi on Hypertensi on Problem Active [facility] Hyperlipop roteinemia Acquired hyperlipop roteinemia Problem Active [facility] 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 Problem Active [facility] Acquired hypothyroi dism Acquired hypothyroi dism Problem Active [facility] Hyperlipid emia Hyperlipid emia Problem Active [facility] [id number] Elevated serum globulin level Problem Active [facility] [id number] 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 [facility] Allergic rhinitis Allergic rhinitis, unspecifie d seasonalit y, unspecifie d trigger Problem Active [facility] [id number] Needs flu shot Problem Active [facility] [id number] Arthritis of left hand Problem Active [facility] [id number] Renal insufficie ncy Problem Active [facility] Vitamin deficiency Encounter for vitamin deficiency screening Problem Active [facility] 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 Problem Active [facility] [id number] Primary osteoarthr itis, left hand Problem Active [facility] [id number] Primary osteoarthr itis, right hand Problem Active [facility] Allergies, Adverse Reactions, Alerts Allergy Name Allergy Type Status Severity Reaction(s) Onset Date Inactive Date Treating Clinician Comments Source metronid azole Propensi ty to adverse reaction to drug Active 10-17 00:00: 00 Sergei Maher loratadi ne / pseudoep hedrine loratadi ne / pseudoep hedrine Active Unknown [facility] Social History Social Habit Start Date Stop Date Quantity Comments Source Sex Assigned At [facility] History of Tobacco Use 1978-07-17 00:00:00 [facility] Smoking Status Start Date Stop Date Source Former Smoker 2024-10-13 00:00:00 2024-10-13 00:00:00 [facility] Never Smoker [facility] Medications Ordered Medication Name Filled Medication Name Start Date Stop Date Current Medication? Ordering Clinician Indication Dosage Frequency Signature (SIG) Comments Components Source Advair Diskus 250 mcg-50 mcg/dose powder for inhalation 10-25 00:00: 00 Yes 1mcg/do se Sergei Maher spironolact one 25 mg tablet 10-25 00:00: 00 Yes 1mg Sergei Maher aspirin 81 mg tablet,guzman yed release 09-14 00:00: 00 Yes 1mg Segrei Maher famotidine 20 mg tablet 09-14 00:00: 00 Yes 1mg Sergei Maher losartan 25 mg tablet 09-14 00:00: 00 Yes 1mg Sergei Maher Ai Allergy 180 mg tablet 09-14 00:00: 00 Yes 1mg Sergei Maher carvedilol 12.5 mg tablet 09-14 00:00: 00 Yes 1mg Sergei Maher flecainide 50 mg tablet 09-14 00:00: 00 Yes 1mg Sergei Maher levothyroxi ne 25 mcg tablet 09-14 00:00: 00 Yes 1mcg Sergei Maher SOLU-Medrol SOLU-Medrol 2023-07 00:00: 00 No 125mg [facility] Vitamin D Vitamin D No 1{ta ble t} QD Vitamin D Losartan Potassium 25 MG Losartan Potassium 25 [...] Comments Source FluAD FluAD 2021-04-03 14:11:00 Completed [facility] FluAD FluAD 2021-04-03 14:11:00 Completed [facility] FluAD FluAD 2020-05-01 10:14:00 Completed [facility] FluAD FluAD 2020-05-01 10:14:00 Completed [facility] FluAD FluAD 2019-03-29 12:37:00 Completed [facility] FluAD FluAD 2019-03-29 12:37:00 Completed [facility] FluAD FluAD 2019-03-29 00:00:00 Completed [facility] FluAD FluAD Unknown Completed Common [facility] FluAD FluAD Unknown Completed Common [facility] FluAD FluAD Unknown Completed [facility] FluAD FluAD Unknown Completed [facility] FluAD FluAD Unknown Completed [facility] FluAD FluAD Unknown Completed [facility] FluAD FluAD Unknown Completed [facility] FluAD FluAD Unknown Completed [facility] FluAD FluAD Unknown Completed [facility] FluAD Unknown Completed [facility] FluAD FluAD Unknown Completed [facility] FluAD FluAD Unknown Completed [facility] Vital Signs Vital Name Observation Time Observation Value Comments S andrece height 2024-10-13 11:20:00 58 [in_i] Commo n [facility] weight 2024-10-13 11:20:00 98 [lb_av] Comm n [facility] bmi 2024-10-13 11:20:00 20.48 kg/m2 Comm on [facility] height 2024-10-13 11:20:00 58 [in_i] Commo n [facility] weight 2024-10-13 11:20:00 98 [lb_av] Commo n [facility] bmi 2024-10-13 11:20:00 20.48 kg/m2 Comm on [facility] height 2024-09-14 08:40:00 58 [in_i] Commo n [facility] weight 2024-09-14 08:40:00 90 [lb_av] Commo n [facility] bmi 2024-09-14 08:40:00 18.81 kg/m2 Comm on [facility] height 2024-07-04 14:00:00 58 [in_i] Commo n [facility] weight 2024-07-04 14:00:00 98.8 [lb_av] Com [facility] temperature 2024-07-04 14:00:00 97.0 [degF] Com [facility] bmi 2024-07-04 14:00:00 20.65 kg/m2 Comm on [facility] oximetry 2024-07-04 14:00:00 98 % Commo n [facility] respiratory rate 2024-07-04 14:00:00 16 /min [facility] blood pressure systolic 2024-07-04 14:00:00 142 mm[Hg] Common [facility] blood pressure diastolic 2024-07-04 14:00:00 66 mm[Hg] Common [facility] height 2024-05-17 11:20:00 58 [in_i] Commo n [facility] weight 2024-05-17 11:20:00 100 [lb_av] Comm on [facility] temperature 2024-05-17 11:20:00 97.3 [degF] Com [facility] bmi 2024-05-17 11:20:00 20.9 kg/m2 Commo n [facility] oximetry 2024-05-17 11:20:00 97 % Commo n [facility] respiratory rate 2024-05-17 11:20:00 16 /min [facility] blood pressure systolic 2024-05-17 11:20:00 120 mm[Hg] [facility] blood pressure diastolic 2024-05-17 11:20:00 72 mm[Hg] Common [facility] height 2024-02-15 11:20:00 58 [in_i] Commo n [facility] weight 2024-02-15 11:20:00 100.4 [lb_av] Co [facility] temperature 2024-02-15 11:20:00 97.6 [degF] Com [facility] bmi 2024-02-15 11:20:00 20.98 kg/m2 Comm on [facility] oximetry 2024-02-15 11:20:00 97 % Commo n [facility] respiratory rate 2024-02-15 11:20:00 16 /min [facility] blood pressure systolic 2024-02-15 11:20:00 118 mm[Hg] Common [facility] blood pressure diastolic 2024-02-15 11:20:00 68 mm[Hg] Common [facility] height 2023-11-16 10:00:00 58 [in_i] Commo n [facility] weight 2023-11-16 10:00:00 101.6 [lb_av] Co [facility] temperature 2023-11-16 10:00:00 97.3 [degF] Com [facility] bmi 2023-11-16 10:00:00 21.23 kg/m2 Comm on [facility] oximetry 2023-11-16 10:00:00 98 % Commo n [facility] respiratory rate 2023-11-16 10:00:00 16 /min Common [facility] blood pressure systolic 2023-11-16 10:00:00 112 mm[Hg] [facility] diastolic 2023-11-16 10:00:00 56 mm[Hg] [facility] height 2023-08-16 10:00:00 58 [in_i] Commo n [facility] weight 2023-08-16 10:00:00 102 [lb_av] Comm on [facility] temperature 2023-08-16 10:00:00 97.8 [degF] Com mon [facility] bmi 2023-08-16 10:00:00 21.32 kg/m2 Comm on [facility] oximetry 2023-08-16 10:00:00 97 % Commo n [facility] respiratory rate 2023-08-16 10:00:00 16 /min Common [facility] blood pressure systolic 2023-08-16 10:00:00 134 mm[Hg] [facility] blood pressure diastolic 2023-08-16 10:00:00 76 mm[Hg] Common [facility] height 2023-08-16 11:20:00 58 [in_i] Commo n [facility] weight 2023-08-16 11:20:00 102 [lb_av] Comm on [facility] temperature 2023-08-16 11:20:00 97.8 [degF] Com [facility] bmi 2023-08-16 11:20:00 21.32 kg/m2 Comm on [facility] oximetry 2023-08-16 11:20:00 97 % Commo n [facility] respiratory rate 2023-08-16 11:20:00 16 /min Common [facility] blood pressure systolic 2023-08-16 11:20:00 134 mm[Hg] Common [facility] blood pressure diastolic 2023-08-16 11:20:00 76 mm[Hg] [facility] height 2023-04-22 09:40:00 58 [in_i] Commo n [facility] weight 2023-04-22 09:40:00 106.8 [lb_av] Co mmon [facility] temperature 2023-04-22 09:40:00 97.0 [degF] Com mon [facility] bmi 2023-04-22 09:40:00 22.32 kg/m2 Comm on [facility] oximetry 2023-04-22 09:40:00 97 % Commo n [facility] respiratory rate 2023-04-22 09:40:00 16 /min [facility] blood pressure systolic 2023-04-22 09:40:00 139 mm[Hg] Common [facility] blood pressure diastolic 2023-04-22 09:40:00 77 mm[Hg] [facility] height 2023-01-20 09:20:00 58 [in_i] Commo n [facility] weight 2023-01-20 09:20:00 113.4 [lb_av] Co [facility] temperature 2023-01-20 09:20:00 97.0 [degF] Com [facility] bmi 2023-01-20 09:20:00 23.7 kg/m2 Commo n [facility] oximetry 2023-01-20 09:20:00 98 % Commo n [facility] respiratory rate 2023-01-20 09:20:00 16 /min [facility] blood pressure systolic 2023-01-20 09:20:00 125 mm[Hg] [facility] blood pressure diastolic 2023-01-20 09:20:00 81 mm[Hg] [facility] height 2022-11-25 13:20:00 58 [in_i] Commo n [facility] weight 2022-11-25 13:20:00 114.8 [lb_av] Co [facility] temperature 2022-11-25 13:20:00 98.4 [degF] Com [facility] bmi 2022-11-25 13:20:00 23.99 kg/m2 Comm on [facility] oximetry 2022-11-25 13:20:00 96 % Commo n [facility] respiratory rate 2022-11-25 13:20:00 16 /min Common [facility] blood pressure systolic 2022-11-25 13:20:00 122 mm[Hg] [facility] blood pressure diastolic 2022-11-25 13:20:00 84 mm[Hg] [facility] height 2022-11-25 14:00:00 58 [in_i] Commo n [facility] weight 2022-11-25 14:00:00 114.8 [lb_av] Co mmon [facility] temperature 2022-11-25 14:00:00 98.4 [degF] Com mon [facility] bmi 2022-11-25 14:00:00 23.99 kg/m2 Comm on [facility] oximetry 2022-11-25 14:00:00 96 % Commo n [facility] respiratory rate 2022-11-25 14:00:00 16 /min [facility] blood pressure systolic 2022-11-25 14:00:00 122 mm[Hg] Common [facility] blood pressure diastolic 2022-11-25 14:00:00 84 mm[Hg] Common [facility] height 2022-02-04 08:40:00 58 [in_i] Commo n [facility] weight 2022-02-04 08:40:00 105 [lb_av] Comm on [facility] bmi 2022-02-04 08:40:00 21.94 kg/m2 Comm on [facility] height 2021-10-15 09:00:00 58 [in_i] Commo n [facility] weight 2021-10-15 09:00:00 104 [lb_av] Comm on [facility] bmi 2021-10-15 09:00:00 21.73 kg/m2 Comm on [facility] height 2021-04-10 09:00:00 58 [in_i] Commo n [facility] weight 2021-04-10 09:00:00 104 [lb_av] Comm on [facility] temperature 2021-04-10 09:00:00 97.4 [degF] Com mon [facility] bmi 2021-04-10 09:00:00 21.73 kg/m2 Comm on [facility] oximetry 2021-04-10 09:00:00 97 % Commo n [facility] respiratory rate 2021-04-10 09:00:00 15 /min [facility] blood pressure systolic 2021-04-10 09:00:00 128 mm[Hg] [facility] blood pressure diastolic 2021-04-10 09:00:00 70 mm[Hg] [facility] BP Systolic 2024-10-25 10:42:00 182 mm[Hg] Step hen F [facility] BP Diastolic 2024-10-25 10:42:00 82 mm[Hg] Agustin phen F Gunnar Weight Measured 2024-10-25 10:42:00 93.60 pounds Sergei F Gunnar Height Measured 2024-10-25 10:42:00 49.00 inches Sergei F Gunnar Body Temperature 2024-10-25 10:42:00 97.50 degrees Sergei F Gunnar Heart Rate 2024-10-25 10:42:00 70.00 /min Suyapa en F Gunnar Respiratory Rate 2024-10-25 10:42:00 19.00 /min Sergei F Gunnar BP Systolic 2024-10-17 11:17:00 167 mm[Hg] Step hen F Gunnar BP Diastolic 2024-10-17 11:17:00 90 mm[Hg] Agustin phen F Gunnar Weight Measured 2024-10-17 11:17:00 93.40 pounds Sergei F Gunnar Height Measured 2024-10-17 11:17:00 49.00 inches Sergei F Gunnar Body Temperature 2024-10-17 11:17:00 97.30 degrees Sergei F Gunnar Heart Rate 2024-10-17 11:17:00 65.00 /min Suyapa Maher Respiratory Rate 2024-10-17 11:17:00 Sergei Maher Respiratory Rate 2024-09-14 14:14:00 16.00 /min Sergei Maher BP Systolic 2024-09-14 14:14:00 196 mm[Hg] Esteban Maher BP Diastolic 2024-09-14 14:14:00 94 mm[Hg] Agustin Maher Weight Measured 2024-09-14 14:14:00 94.80 pounds Sergei Maher Height Measured 2024-09-14 14:14:00 49.20 inches Sergei Maher Body Temperature 2024-09-14 14:14:00 98.40 degrees Sergei Maher Heart Rate 2024-09-14 14:14:00 79.00 /min Suyapa Maher Encounters Start Date/Time End Date/Time Encounter Type Admission Type Attending [facility] Care Department Encounter ID Source 2024-02-11 10:49:00 Outpatient GalindoZulay STLMLC STLMLC [id number] [facility] 2023-11-16 09:29:00 Outpatient GalindoZulay STLMLC STLMLC [id number] [facility] 2022-10-01 10:01:00 Outpatient GalindoZulay STLMLC STLMLC [id number] [facility] 2022-09-09 16:36:00 Outpatient GalindoZulay STLMLC STLMLC [id number] [facility] 2022-02-02 08:15:00 Outpatient Anguiano, Na STLMLC STLMLC [id number] [facility] 2021-10-13 08:34:01 Outpatient Annmarie Na STLMLC STLMLC [id number] [facility] 2021-08-13 12:37:36 Outpatient Annmarie, Na STLMLC STLMLC [id number] [facility] 2021-08-13 12:12:37 Outpatient Anguiano, Na STLMLC STLMLC [id number] [facility] 2021-08-13 12:11:40 Outpatient Anguiano, Na STLMLC STLMLC [id number] [facility] 2021-08-13 12:09:23 Outpatient Anguiano, Na STLMLC STLMLC [id number] [facility] 2021-08-13 11:25:00 Outpatient Kary Anguiano STLMLC STLC [id number] [facility] 2021-08-13 11:17:12 Outpatient Kary Anguiano STLMLC STLC [id number] [facility] 2024-10-25 10:39:30 2024-10-25 10:39:30 Outpatient SFA [id number] Sergei Maher 2024-10-25 00:00:00 2024-10-25 00:00:00 Outpatient Visit SFA [id number] Sergei Maehr 2024-10-17 11:11:36 2024-10-17 11:11:36 Outpatient SFA [id number] Sergei Maher 2024-10-17 00:00:00 2024-10-17 00:00:00 Outpatient Visit SFA [id number] Sergei Maher 2024-10-13 00:00:00 2024-10-13 00:00:00 (WEB) STLMLC STLC [id number] [facility] 2024-10-13 00:00:00 2024-10-13 00:00:00 SUB ANNUAL [facility] WELLNESS VISIT STLC STLC [id number] [facility] 2024-10-13 00:00:00 2024-10-13 00:00:00 OFFICE VISIT ESTAB PT LEVEL 4 [facility] [id number] [facility] 2024-10-13 00:00:00 2024-10-13 00:00:00 (WEB) STLMLC STLMLC [id number] [facility] 2024-10-13 00:00:00 2024-10-13 00:00:00 (WEB) STLMLC STLMLC [id number] [facility] 2024-09-14 13:58:59 2024-09-14 13:58:59 Outpatient SFA [id number] Sergei Maher 2024-09-14 00:00:00 2024-09-14 00:00:00 (EST. VIDEO) EST VIRTUAL VIDEO VISIT STLMLC STLMLC [id number] [facility] 2024-09-14 00:00:00 2024-09-14 00:00:00 Outpatient Visit SFA [id number] Sergei Maher 2024-09-11 00:00:00 2024-09-11 00:00:00 (TEL) STLMLC STLMLC [id number] [facility] 2024-07-04 00:00:00 2024-07-04 00:00:00 (TEL) STLMLC STLMLC [id number] [facility] 2024-07-04 00:00:00 2024-07-04 00:00:00 OFFICE VISIT ESTAB PT LEVEL 4 STLMLC STLMLC [id number] [facility] 2024-05-17 00:00:00 2024-05-17 00:00:00 OFFICE VISIT ESTAB PT LEVEL 4 STLMLC STLMLC [id number] [facility] 2024-02-15 00:00:00 2024-02-15 00:00:00 OFFICE VISIT ESTAB PT LEVEL 4 STLMLC STLMLC [id number] [facility] 2023-11-16 00:00:00 2023-11-16 00:00:00 OFFICE VISIT ESTAB PT LEVEL 4 STLMLC STLMLC [id number] [facility] 2023-08-16 00:00:00 2023-08-16 00:00:00 SUB ANNUAL M[facility] WELLNESS VISIT STLMLC STLMLC [id number] [facility] 2023-08-16 00:00:00 2023-08-16 00:00:00 OFFICE VISIT ESTAB PT LEVEL 4 STLMLC STLMLC [id number] [facility] 2023-04-22 00:00:00 2023-04-22 00:00:00 OFFICE VISIT ESTAB PT LEVEL 4 STLMLC STLMLC [id number] [facility] 2023-04-22 00:00:00 2023-04-22 00:00:00 (TEL) STLMLC STLMLC [id number] [facility] 2023-04-22 00:00:00 2023-04-22 00:00:00 (TEL) STLMLC STLMLC [id number] [facility] 2023-01-20 00:00:00 2023-01-20 00:00:00 OFFICE VISIT ESTAB PT LEVEL 4 STLMLC STLMLC [id number] [facility] 2022-12-21 00:00:00 2022-12-21 00:00:00 (TEL) STLMLC STLMLC [id number] [facility] 2022-11-25 00:00:00 2022-11-25 00:00:00 OFFICE VISIT ESTAB PT LEVEL 4 STLMLC STLMLC [id number] [facility] 2022-11-25 00:00:00 2022-11-25 00:00:00 SUB ANNUAL MCR WELLNESS VISIT STLMLC STLMLC [id number] [facility] 2022-10-01 00:00:00 2022-10-01 00:00:00 (TEL) STLMLC STLMLC [id number] [facility] 2022-02-04 00:00:00 2022-02-04 00:00:00 OFFICE VISIT ESTAB PT LEVEL 4 STLMLC STLMLC [id number] [facility] 2021-10-15 00:00:00 2021-10-15 00:00:00 (TEL) STLMLC STLMLC [id number] [facility] 2021-10-15 00:00:00 2021-10-15 00:00:00 OFFICE VISIT ESTAB PT LEVEL 4 STLMLC STLMLC [id number] [facility] 2021-10-15 00:00:00 2021-10-15 00:00:00 (TEL) STLMLC STLMLC [id number] [facility] 2021-04-10 00:00:00 2021-04-10 00:00:00 OFFICE VISIT ESTAB PT LEVEL 4 STLMLC STLMLC [id number] [facility] 2021-04-03 00:00:00 2021-04-03 00:00:00 (INJ) Injection STLMLC STLMLC [id number] [facility] 2020-09-06 00:00:00 2020-09-06 00:00:00 Outpatient STLMLC STLMLC [id number] [facility] 2020-06-28 00:00:00 2020-06-28 00:00:00 Outpatient STLMLC STLMLC [id number] [facility] 2020-05-01 00:00:00 2020-05-01 00:00:00 Outpatient STLMLC STLMLC [id number] [facility] 2019-12-26 13:00:00 2019-12-26 13:00:[address] [facility] [id number] [facility] 2019-06-27 13:00:00 2019-06-27 13:00:00 [facility] [id number] [facility] 2019-03-31 05:20:00 2019-03-31 05:20:00 [facility] [id number] [facility] 2019-03-29 11:00:00 2019-03-29 11:00:00 [facility] [id number] [facility] 2019-03-28 13:00:00 2019-03-28 13:00:00 [facility] [id number] [facility] 2018-12-20 13:00:00 2018-12-20 13:00:00 [facility] [id number] [facility] 2018-09-20 09:30:00 2018-09-20 09:30:00 [facility] [id number] [facility] 2018-06-20 14:30:00 2018-06-20 14:30:00 [facility] [id number] [facility] 2018-03-17 14:00:00 2018-03-17 14:00:00 [facility] [id number] [facility] 2017-12-14 14:15:00 2017-12-14 14:15:00 Outpatient [facility] [id number] [facility] Results Test Description Test Time Test Comments Results Result Co mments Source LIPID PANEL WITH REFLEX TO DIRECT [id number] 00:00:00* Test Item Value Reference Range Interpretation Comme nts ALBUMIN (test code = 1751-7) 3.6 g/dL See_Comment N [Automated [employer]] The system which generated this result transmitted [...] = 1742-6) 8 U/L See_Comment N [Automated messa ge] The [...] as normal/abnormal. BILIRUBIN, TOTAL (test code = 1974-2) 0.6 mg/dL See_Comment N [Automated messa ge] [...] result as normal/abnormal. CALCIUM (test code = 90329-8) 9.6 mg/dL See_Comment N [Automated messa ge] The system which generated this result transmitted reference range: 8.6-10.4 mg/dL. The reference range was not used to interpret this result as normal/abnormal. CARBON DIOXIDE (test code = 2027-9) 31 mmol/L See_Comment N [Automated [employer] ge] The system which generated this result transmitted reference range: 20-32 mmol/L. The reference range was not used to interpret this result as normal/abnormal. CHLORIDE (test code = 5-0) 103 mmol/L See_Comment N [Automated messa ge] [...] result as normal/abnormal. GLOBULIN (test code = 23822-4) 3.1 g/dL (calc) See_Comment N [Automated message] The system which generated this result transmitted reference range: 1.9-3.7 g/dL (calc). The reference range was not used to interpret this result as normal/abnormal. GLUCOSE (test code = 2345-7) 82 mg/dL See_Comment N [Automated messa ge] The system which generated this result transmitted reference range: 65-99 mg/dL. The reference range was not used to interpret this result as normal/abnormal. POTASSIUM (test code = 2823-3) 4.5 mmol/L See_Comment N [Automated messa ge] The system which generated this result transmitted reference range: 3.5-5.3 mmol/L. The reference range was not used to interpret this result as normal/abnormal. PROTEIN, TOTAL (test code = 2885-2) 6.7 g/dL See_Comment N [Automated messa ge] The system which generated this result transmitted reference range: 6.1-8.1 g/dL. The reference range was not used to interpret this result as normal/abnormal. SODIUM (test code = 2951-2) 139 mmol/L See_Comment N [Automated messa ge] The [...] = 9830-1) 3.7 (calc) See_Comment N [Automated messa ge] The system [...] = 2085-9) 46 mg/dL See_Comment L [Automated messa ge] The system which generated this result transmitted reference range: > OR = 50 mg/dL. The reference range was not used to interpret this result as normal/abnormal. LDL-CHOLESTEROL (test code = 62714-1) 106 mg/dL (calc) H TRIGLYCERIDES (test code = 2571-8) 71 mg/dL See_Comment N [Automated [employer]] The system which generated this result transmitted reference range: <150 mg/dL. The reference range was not used to interpret this result as normal/abnormal. POC, COVID 19 Antigen + Flu by SofiaPOC, COVID 19 Antigen + Flu by Melva Notes Date/Time Note [facility]2025-02-27 00:00:00 [facility]
--- NOTE | 2024-11-05 22:30 | RAD REPORT ---
Procedure: Chest Single View HISTORY: Cough COMPARISON: November 03, 2023 FINDINGS: Mild to moderate bilateral patchy lung opacities. These are without significant change. No significant pleural effusion noted. The heart is normal size. IMPRESSION: Mild to moderate bilateral patchy lung opacities may represent an atypical pneumonia.
[2024-11-05 23:37] LABS: Absolute Lymphocytes (CBC) 1.2 K/uL (0.7-4.9); Absolute Monocytes 0.5 K/uL (0.1-1.3); Absolute Neutrophil 7.1 K/uL (1.8-8.0); Basophils % 0.1 % (0-1.3); Eosinophils % 0.5 % (0-4.4); Hematocrit 38.1 % (36.0-45.0); Hemoglobin 12.7 g/dL (12.0-15.0); Lymphocytes % 13.5 % (15.3-44.8); MCH 29.5 pg (27.0-35.0); MCHC 33.3 g/dL (32.0-36.0); MCV 88.3 fL (80-100); MPV 10.4 fL (7.6-11.3); Monocytes % 6.2 % (3.3-12.3); Neutrophils % 79.7 % (41.7-73.7); PT Prothrombin Time 12.6 SECONDS (10-13.0); Platelets 216 thou/uL (152-406); Protime INR 1.11; RBC Red Blood Cell Count 4.31 M/uL (3.86-4.86); Red Cell Distribution Width 14.6 % (12.1-15.2)
[2024-11-05 23:41] LABS: Specific Gravity 1.006 (1.005-1.030); Sqamous Epithelial None Seen /HPF (None Seen); Urine Bacteria <20 /HPF (<20); Urine Bilirubin NEGATIVE (Negative); Urine Blood Negative (Negative); Urine Clarity Clear (Clear); Urine Color Colorless (Yellow); Urine Glucose NEGATIVE (Negative); Urine Ketones NEGATIVE (Negative); Urine Micro Reflex YN NO BILL MICROSCOPIC; Urine Nitrite NEGATIVE (Negative); Urine Protein NEGATIVE (Negative); Urine RBC <5 /HPF (None Seen); Urine Urobilinogen Normal (Normal); Urine pH 6.5 (5.0-7.0)
[2024-11-05 23:51] LABS: ALT/SGPT 18 U/L (13-56); Albumin 3.2 g/dL (3.4-5.0); Albumin/Globulin Ratio 0.7 (1.1-1.8); Alkaline Phosphatase 96 U/L (45-117); Anion Gap 5.8 mEq/L (5.0-15.0); BUN Blood Urea Nitrogen 17 mg/dL (7-18); Bicarbonate 29 mEq/L (21-32); Bilirubin Total 0.4 mg/dL (0.2-1.0); Globulin 4.3 g/dL (2.3-3.5); Glomerular Filtration Rate 89 ml/min (=/>90); Glucose Level 108 mg/dL (74-106); Magnesium 2.5 mg/dL (1.6-2.4); NT PRO-BNP 310 pg/mL (<450); Potassium 3.8 mEq/L (3.5-5.1); Protein, Total 7.5 g/dL (6.4-8.2); Sodium Level 136 mEq/L (136-145); Troponin High Sensitivity 7.7 pg/mL (<58.9)
[2024-11-05 23:56] LABS: AST/SGOT < 10 U/L (15-37); Bilirubin Direct < 0.2 mg/dL (0-0.2); Bilirubin Indirect, Calculated 0.2 mg/dL (0.2-0.8)
[2024-11-05 23:59] LABS: Influenza A Ag Negative; Influenza B Ag Negative; SARS-CoV-2 Antigen Rapid Res Negative (Negative)
--- NOTE | 2024-11-06 00:51 | EDPHYS ---
Physician Documentation [facility] Name: Daphne Samuels Age: 79 yrs Sex: Female : 1945 Arrival Date: 11/05/2024 Time: 20:34 Bed 4 Private MD: ED Physician Giorgio Boyle HPI: 11/05 20:58 This 79 yrs old Female presents to ER via Unassigned with complaints of sp4 Dizziness. Historical: - Allergies: 21:35 metronidazole; kd3 21:35 Omeprazole; kd3 - PMHx: 21:35 Hypertensive disorder; Hypothyroidism; Macular degenerative; kd3 - PSHx: 21:35 cataract; section; kd3 - Immunization history:: Adult Immunizations up to date. - Infectious Disease History:: Denies. - Social history:: Smoking status: Patient denies any tobacco usage or history of. Vital Signs: 21:30 BP 166 / 91; Pulse 72; Resp 16; Pulse Ox 97% on R/A; al5 21:32 BP 166 / 91; Pulse 81; Resp 16; Temp 98.2(O); Pulse Ox 100% ; Weight 42.18 kg; Height 4 kd3 ft. 10 in. ; 22:00 BP 152 / 79; Pulse 67; Resp 16; Pulse Ox 96% on R/A; al5 22:30 BP 140 / 80; Pulse 66; Resp 16; Pulse Ox 96% on R/A; al5 23:06 BP 136 / 75; Pulse 78; Resp 16; Pulse Ox 96% on R/A; kd3 23:30 BP 143 / 72; Pulse 63; Resp 17; Pulse Ox 97% on R/A; al5 21:32 Body Mass Index 19.44 (42.18 kg, 147.32 cm) kd3 MDM: 23:05 Medical Screening Exam initiated sp4 11/05 21:30 Order name: Basic Metabolic Panel; Complete Time: 00:37 sp4 11/05 21:30 Order name: CBC with Diff; Complete Time: 00:37 sp4 11/05 21:30 Order name: LFT's; Complete Time: 00:37 sp4 11/05 21:30 Order name: Magnesium; Complete Time: 00:37 sp4 11/05 21:30 Order name: NT PRO-BNP; Complete Time: 00:37 sp4 11/05 21:30 Order name: PT-INR; Complete Time: 00:37 sp4 11/05 21:30 Order name: Troponin HS; Complete Time: 00:37 sp4 11/05 21:30 Order name: TSH; Complete Time: 00:37 sp4 11/05 21:30 Order name: Urinalysis W/Microscopic; Complete Time: 00:37 sp4 11/05 21:30 Order name: COVID-19 Ag + Flu A+B Ag; Complete Time: 00:37 sp4 11/05 21:30 Order name: T4 Free; Complete Time: 00:37 sp4 11/05 21:30 Order name: XRAY Chest (1 view); Complete Time: 00:37 sp4 11/05 21:30 Order name: Cardiac monitoring; Complete Time: 23:05 sp4 11/05 21:30 Order name: EKG - Nurse/Tech; Complete Time: 23:20 sp4 11/05 21:30 Order name: IV Saline Lock; Complete Time: 23:06 sp4 11/05 21:30 Order name: Labs collected and sent; Complete Time: 23:06 sp4 11/05 21:30 Order name: O2 Per Protocol; Complete Time: 23:06 sp4 11/05 21:30 Order name: O2 Sat Monitoring; Complete Time: 23:06 sp4 Administered Medications: No medications were administered Disposition Summary: 11/06/24 00:51 Discharge Ordered Problem: new sp4 Symptoms: have improved sp4 Condition: Stable sp4 Diagnosis - Dizziness and giddiness sp4 - Generalized weakness, sp4 Followup: sp4 - With: Private Physician - When: 7 - 10 days - Reason: Recheck today's complaints Discharge Instructions: - Discharge Summary Sheet sp4 - Dizziness, [id number] sp4 Forms: - Patient Portal Instructions sp4 Addendum: 11/07/2024 21:49 Addendum: EKG at 11/05/2024 at 2317 normal sinus rhythm rate 65 normal EKG, no ST s p4 elevation or depression, no ectopy, normal axis, normal intervals,. Signatures: Dis[facility] Elisabet Leroy RN RN kd3 Giorgio Boyle MD MD sp4 Corrections: (The following items were deleted from the chart) 11/05 20: 21:31 THYROID STIMULAT HORMONE+C.LAB.BRZ ordered. EDMS EDMS 21:31 Urinalysis W/Microscopic+U.LAB.BRZ ordered. EDMS EDMS 21: COVID-19 Ag + Flu A+B Ag+I.LAB.BRZ ordered. EDMS EDMS 21: T4 FREE+C.LAB.BRZ ordered. EDMS EDMS 21:31 Head Brain Wo Cont+CT.RAD.BRZ ordered. EDMS EDMS : 21:32 Chest Abdomen Pelvis Wo Con+CT.RAD.BRZ ordered. EDMS EDMS
--- NOTE | 2024-11-06 00:51 | ER ---
Nurse's Notes [facility] Name: Daphne Samuels Age: 79 yrs Sex: Female : 1945 Arrival Date: 11/05/2024 Time: 20:34 Bed 4 Private MD: Diagnosis: Dizziness and giddiness;Generalized weakness, Presentation: 11/05 21:32 Chief complaint: Patient states: I was recently hospitalized for pneumonia in August and then in september it turned into bacterial pneumonia. Since then I have had dizziness and weakness on and off. My doctor is DR weathers. I have an inhaler from him. I am not sure why I am taking so long to recover. Coronavirus screen: Vaccine status: Patient reports receiving the 2nd dose of the covid vaccine. Ebola Screen: No symptoms or risks identified at this time. Initial Sepsis Screen: Does the patient meet any 2 criteria? No. Patient's initial sepsis screen is negative. Does the patient have a suspected source of infection? No. Patient's initial sepsis screen is negative. Risk Assessment: Do you want to hurt yourself or someone else? Patient reports no desire to harm self or others. Onset of symptoms was November 05, 2024. 21:32 Method Of Arrival: Ambulatory kd3 21:32 Acuity: AYSHA 3 kd3 Triage Assessment: 21:35 General: Appears in no apparent distress. Behavior is cooperative, anxious. Pain: kd3 Denies pain. Neuro: Level of Consciousness is awake, alert, obeys commands, Oriented to person, place, time, situation. Historical: - Allergies: 21:35 metronidazole; kd3 21:35 Omeprazole; kd3 - PMHx: 21:35 Hypertensive disorder; Hypothyroidism; Macular degenerative; kd3 - PSHx: 21:35 cataract; section; kd3 - Immunization history:: Adult Immunizations up to date. - Infectious Disease History:: Denies. - Social history:: Smoking status: Patient denies any tobacco usage or history of. Screenin:07 [facility] ED Fall Risk Assessment (Adult) History of falling in the last 3 months, kd3 including since admission No falls in past 3 months (0 pts) Confusion or Disorientation No (0 pts) Intoxicated or Sedated No (0 pts) Impaired Gait No (0 pts) Mobility Assist Device Used No (0 pt) Altered Elimination No (0 pt) Score/Fall Risk Level 0 - 2 = Low Risk Oriented to surroundings. Abuse screen: Denies threats or abuse. Denies injuries from another. Nutritional screening: No deficits noted. Tuberculosis screening: No symptoms or risk factors identified. Assessment: 23:06 General: Appears in no apparent distress. Behavior is calm, cooperative. Neuro: Level kd3 of Consciousness is awake, alert, obeys commands, Oriented to person, place, time, situation. Cardiovascular: Patient's skin is warm and dry. 11/06 01:10 General: Appears in no apparent distress. Behavior is calm, cooperative. Neuro: Level kd3 of Consciousness is awake, alert, obeys commands, Oriented to person, place, time, situation. Cardiovascular: Capillary refill < 3 seconds Patient's skin is warm and dry. Vital Signs: 11/05 21:30 BP 166 / 91; Pulse 72; Resp 16; Pulse Ox 97% on R/A; al5 21:32 BP 166 / 91; Pulse 81; Resp 16; Temp 98.2(O); Pulse Ox 100% ; Weight 42.18 kg; Height 4 kd3 ft. 10 in. ; 22:00 BP 152 / 79; Pulse 67; Resp 16; Pulse Ox 96% on R/A; al5 22:30 BP 140 / 80; Pulse 66; Resp 16; Pulse Ox 96% on R/A; al5 23:06 BP 136 / 75; Pulse 78; Resp 16; Pulse Ox 96% on R/A; kd3 23:30 BP 143 / 72; Pulse 63; Resp 17; Pulse Ox 97% on R/A; al5 21:32 Body Mass Index 19.44 (42.18 kg, 147.32 cm) kd3 ED Course: 20:36 Patient arrived in ED. [email or web address] 20:58 Giorgio Boyle MD is Attending Physician. sp4 21:11 Elisabet Mckeon, BIMAL is Primary Nurse. kd3 21:35 Triage completed. kd3 21:36 Arm band placed on right wrist. kd3 21:44 XRAY Chest (1 view) In Process Unspecified. EDMS 23:05 T4 Free Sent. kd3 23:05 COVID-19 Ag + Flu A+B Ag Sent. kd3 23:05 Urinalysis W/Microscopic Sent. kd3 23:05 TSH Sent. kd3 23:06 Basic Metabolic Panel Sent. kd3 23:06 CBC with Diff Sent. kd3 23:06 LFT's Sent. kd3 23:06 Magnesium Sent. kd3 23:06 NT PRO-BNP Sent. kd3 23:06 PT-INR Sent. kd3 23:06 Troponin HS Sent. kd3 23:07 Patient has correct armband on for positive identification. Provided Education on: CT kd3 scan . 11/06 01:10 No provider procedures requiring assistance completed. IV discontinued, intact, kd3 bleeding controlled, No redness/swelling at site. Pressure dressing applied. Administered Medications: No medications were administered Medication: 11/05 23:07 VIS not applicable for this client. kd3 Outcome: 11/06 00:51 Discharge ordered by . sp4 01:10 Discharged to home ambulatory, kd3 01:10 Condition: stable 01:10 Discharge instructions given to patient, family, Instructed on discharge instructions, follow up and referral plans. 01:44 Patient left the ED. kd3 Signatures: Dispatcher [employer] EDMS Meme [email or web address] Elisabet Mckeon RN RN kd3 Giorgio Boyle MD MD sp4 Sofya Polk RN RN al5
[2024-11-06 02:06] VITALS: TEMP 98.2
[2024-11-06 02:12] VITALS: BP 143/72; O2SAT 97
--- NOTE | 2024-11-08 12:45 | EKG ---
Test Date: 2024-11-05 Test Time: 23:17:28 Client Services Coordinator: [place] MEASUREMENT RESULTS: Intervals: Rate: 65 GA: 172 QRSD: 84 QT: 404 QTc: 420 Eldred: P: 60 GA: 172 QRS: 6 T: 52 INTERPRETIVE STATEMENTS: Normal sinus rhythm Normal ECG Compared to ECG 09/07/2024 13:25:03 T-wave abnormality no longer present Electronically Signed On 11-08-24 12:40:11 CDT by Tanvir Saavedra
== END 2024-11-06 01:44 | disposition home or self-care (01) ==
LOC: ER 20:34
DX: R42 Dizziness and giddiness (principal); R53.1 Weakness; I10 Essential (primary) hypertension; Z11.52 Encounter for screening for COVID-19
CPT/HCPCS: 36415; 71045; 80048; 80076; 81001; 83735; 83880; 84439; 84443; 84484; 85025; 85610; 87428; 93005; 99283